=== PATIENT | male | born 1945 | race Caucasian/White ===

== ENCOUNTER 2016-10-06 16:31 | Inpatient (IN) | payer OTHER, MEDICARE ==
--- NOTE | 2016-10-06 16:56 | ER Document Report ---
ED General - General Stated Complaint: POSSIBLE HEART RATE PROBLEM Time seen by provider: 16:55 Mode of Arrival: Medic Information source: Patient, Transfer Record Notes: This is a 71-year-old man with a history of hypertension, dyslipidemia, smoking , PVCs and sinus bradycardia. The patient was transferred to the emergency room by ambulance from the [facility] because of variation's and heart rate. Patient denies any chest pain. Patient denies weight recent weight gain (he is now 307 pounds, previously he was 275). He does report dyspnea on exertion and lower extremity swelling worse over the past 2 weeks. Patient states he went to get his weight checked at the [facility] and they noticed that is heart rate was irregular and slow at times and they called an ambulance. The patient's son is in the emergency room and states that the patient has been under a lot of stress lately with the loss of his mother yesterday. Current medicines: Verapamil dose not known Hydrochlorothiazide 12.5 mg daily Allergies: Codeine TRAVEL OUTSIDE OF THE [place] IN LAST 30 DAYS: No - HPI Onset: Last week Onset/Duration: Gradual Quality of pain: No pain Severity: None Pain Level: Denies Associated symptoms: Shortness of breath. denies: Chills, Nonproductive cough, Productive cough, Fever Exacerbated by: Walking Relieved by: Denies Similar symptoms previously: Yes Recently seen / treated by doctor: Yes - Related Data Allergies/Adverse Reactions: codeine [Codeine] Allergy (Verified 10/06/16 17:13) Past Medical History - General Information source: Patient - Social History Smoking Status: Current Every Day Smoker Cigarette use (# per day): Yes - three quarters of a pack smoking Chew tobacco use (# tins/day): No Smoking Education Provided: No Frequency of alcohol use: None Drug Abuse: None Lives with: Family Family History: Reviewed & Not Pertinent, CAD, CVA Patient has suicidal ideation: No Patient has homicidal ideation: No - Past Medical History Cardiac Medical History: Reports: Hx Hypertension, Other - Bradycardia, PVCs Pulmonary Medical History: Reports: None EENT Medical History: Reports: None Neurological Medical History: Reports: None Endocrine Medical History: Reports: None Renal/ Medical History: Reports: None Malignancy Medical History: Reports None GI Medical History: Reports: None Musculoskeltal Medical History: Reports Hx Arthritis - back pain Psychiatric Medical History: Reports: None Traumatic Medical History: Reports: None Past Surgical History: Reports: Hx Appendectomy, Hx Herniorrhaphy, Hx Orthopedic Surgery - right shoulder surgery, Hx Tonsillectomy - Immunizations Hx Diphtheria, Pertussis, Tetanus Vaccination: - Unknown Hx Pneumococcal Vaccination: 08/15/14 Review of Systems - Review of Systems Constitutional: denies: Chills, Fever EENT: No symptoms reported Cardiovascular: See HPI Respiratory: See HPI Gastrointestinal: No symptoms reported Genitourinary: No symptoms reported Male Genitourinary: No symptoms reported Musculoskeletal: No symptoms reported Skin: No symptoms reported Hematologic/Lymphatic: No symptoms reported Neurological/Psychological: No symptoms reported Physical Exam - Vital signs Vitals: Pulse Ox 96 10/06/16 16:55 Notes: Physical exam: GENERAL: 71-year-old man, alert and oriented 3, appears short of breath. HEAD: Atraumatic, normocephalic. EYES: Pupils equal round and reactive to light, extraocular movements intact, sclera anicteric, conjunctiva are normal. ENT: TMs normal, nares patent, oropharynx clear without exudates. Moist mucous membranes. NECK: Normal range of motion, supple without lymphadenopathy or JVD. LUNGS: Bilateral crackles at the bases. HEART: Regular rate and rhythm without murmurs, rubs or gallops. Note: Patient has a heart rate monitor on from his jailer chief in [place]. ABDOMEN: Soft, normoactive bowel sounds. No tenderness to palpation. No guarding, no rebound. No masses appreciated. EXTREMITIES: Normal range of motion, 3+ pitting edema to the lower extremities. NEUROLOGICAL: Cranial nerves II through XII grossly intact. Normal speech, normal gait. PSYCH: Normal mood, normal affect. SKIN: Warm, Dry, normal turgor, no rashes or lesions noted. Course - Re-evaluation Re-evalutation: 10/06/16 18:27 In summary: This is a 71-year-old man presenting to the emergency room with progressively worsening dyspnea on exertion, weight gain and lower extremity swelling. At the [facility] today, the patient is known to be bradycardic and he was sent by EMS to the ER for evaluation. Patient has had heart rates in the 50s with frequent PVCs. He has had PVCs in the past. However, he states that his dyspnea on exertion and lower extremity swelling is significantly worsened in the past few days. First set of cardiac enzymes are normal. We will continue cardiac monitoring. We will continue to follow his cardiac enzymes. We will check CTA of the chest. - Vital Signs Vital signs: Temp Pulse Resp BP Pulse Ox 98.0 F 27 H 123/66 96 10/06/16 17:17 10/06/16 17:17 10/06/16 17:17 10/06/16 16:55 - Laboratory Result Diagrams: 10/06/16 17:23 10/06/16 17:23 Laboratory results interpreted by me: 10/06/16 10/06/16 17:23 17:23 WBC 11.7 H Hgb 13.4 L RDW 15.4 H Lymphocytes % 11.1 L Absolute Neutrophils 8.9 H Carbon Dioxide 33 H Creatine Kinase 45 L Albumin 3.3 L - Diagnostic Test Radiology reviewed: Image reviewed, Reports reviewed - No obvious infiltrates - EKG Interpretation by Me Rate: Bradycardia - EKG shows sinus bradycardia with a ventricular rate of 59, PVCs with some bigeminy Discharge - Discharge Clinical Impression: dyspnea, bradycardia, PVCs Condition: Stable Disposition: ADMITTED OBSERVATION Admitting Provider: Hospitalist - Dr. Grimaldo Unit Admitted: Telemetry
[2016-10-06] MEDS ORDERED: FUROSEMIDE INJ/PF 40 MG/4 ML SDV IV ONE (17:29)
[2016-10-06 17:36] LABS: ABSOLUTE BASOPHILS # (AUTO) 0.1 10^3/uL (0.0-0.2); ABSOLUTE EOSINOPHILS # (AUTO) 0.1 10^3/uL (0.0-0.6); ABSOLUTE LYMPHOCYTES (AUTO) 1.3 10^3/uL (0.5-4.7); ABSOLUTE MONOCYTES (AUTO) 1.3 10^3/uL (0.1-1.4); ABSOLUTE NEUT (AUTO) 8.9 10^3/uL (1.7-8.2); BASOPHILS % (AUTO) 0.9 % (0-2); EOSINOPHILS % (AUTO) 0.7 % (0-6); HEMATOCRIT 41.8 % (37.9-51.0); HEMOGLOBIN 13.4 g/dL (13.5-17.0); HGB HCT DIFFERENCE -1.6; LYMPHOCYTES % (AUTO) 11.1 % (13-45); MEAN CORPUSCULAR HEMOGLOBIN 28.6 pg (27.0-33.4); MEAN CORPUSCULAR VOLUME 89 fl (80-97); MONOCYTES % (AUTO) 11.4 % (3-13); RED BLOOD COUNT 4.68 10^6/uL (4.35-5.55); RED CELL DISTRIBUTION WIDTH 15.4 % (11.5-14.0); SEGMENTED NEUTROPHILS % (AUTO) 75.9 % (42-78); WHITE BLOOD COUNT 11.7 10^3/uL (4.0-10.5)
[2016-10-06 17:54] LABS: ALANINE AMINOTRANSFERASE 25 U/L (21-72); ALBUMIN 3.3 g/dL (3.5-5.0); ALKALINE PHOSPHATASE 85 U/L (38-126); ANION GAP 10 (5-19); ASPARTATE AMINO TRANSFERASE 18 U/L (17-59); BILIRUBIN,TOTAL 0.8 mg/dL (0.2-1.3); BLOOD UREA NITROGEN 16 mg/dL (7-20); CALCIUM 9.2 mg/dL (8.4-10.2); CARBON DIOXIDE 33 mmol/L (22-30); CHLORIDE 101 mmol/L (98-107); CREATINE KINASE 45 U/L (55-170); CREATININE RESULT 0.74 mg/dL (0.52-1.25); GLUCOSE 88 mg/dL (75-110); POTASSIUM 4.2 mmol/L (3.6-5.0); SODIUM 144.3 mmol/L (137-145); TOTAL PROTEIN 6.6 g/dL (6.3-8.2)
[2016-10-06 18:06] LABS: CREATINE KINASE MB 0.67 ng/mL (<4.55); TROPONIN I < 0.012 ng/mL
[2016-10-06] MEDS ORDERED: ACETAMINOPHEN 325 MG TABLET PO PRN (18:49)
[2016-10-06] MEDS ORDERED: ONDANSETRON HCL INJ/PF 4 MG/2 ML SDV IV PRN (18:49)
--- NOTE | 2016-10-06 19:11 | PDOC H&P ---
History of Present Illness Admission Date/PCP: 10/06/2016 Patient complains of: Shortness of breath on exertion History of Present Illness: STONE GROVE JR is a 71 year old male, with hypertension, COPD, chronic back pain, premature ventricular contractions and ventricular arrhythmias, has been on an event recorder presents to the hospital with dyspnea on exertion for a few weeks with increasing lower extremity edema and weight gain of about 10 pounds. Denies any chest pain at all. No paroxysmal nocturnal dyspnea nor orthopnea. No sweating. No chills or fever. There is pressure in the lower extremities but no definite pain. There is likewise no redness. The patient went to the emergency room for evaluation and was referred for observation. Patient denies any wheezing at all. No shortness of breath at rest. Patient has cough intermittently but not worse. Past Medical History Cardiac Medical History: Reports: Hyperlipidema, Hypertension, Other - Bradycardia, PVCs Pulmonary Medical History: Reports: Chronic Obstructive Pulmonary Disease (COPD) EENT Medical History: Reports: None Neurological Medical History: Reports: None Endocrine Medical History: Reports: None Renal/ Medical History: Reports: None Malignancy Medical History: Reports: None GI Medical History: Reports: None Musculoskeltal Medical History: Reports: Arthritis - back pain, Other - Back pain Psychiatric Medical History: Reports: None Traumatic Medical History: Reports: None Past Surgical History Past Surgical History: Reports: Appendectomy, Herniorrhaphy, Orthopedic Surgery - right shoulder surgery, Tonsillectomy Social History Information Source: Patient Lives with: Family Smoking Status: Current Every Day Smoker Frequency of Alcohol Use: None Hx Recreational Drug Use: No Drugs: None Hx Prescription Drug Abuse: No Family History Family History: CAD, CVA Parental Family History Reviewed: Yes Children Family History Reviewed: Yes Sibling(s) Family History Reviewed.: Yes Medication/Allergy Home Medications: Verapamil HCl [Calan Sr 120 mg Tablet.sa] 120 mg PO BID 11/13/15 Allergies/Adverse Reactions: codeine [Codeine] Allergy (Verified 10/06/16 17:13) Review of Systems Constitutional: PRESENT: weakness - Generalized, weight gain. ABSENT: chills, fever(s), headache(s), weight loss Eyes: ABSENT: visual disturbances Ears: ABSENT: hearing changes Nose, Mouth, and Throat: ABSENT: mouth pain, sore throat Cardiovascular: PRESENT: dyspnea on exertion, edema. ABSENT: chest pain, orthropnea, palpitations Respiratory: PRESENT: cough. ABSENT: hemoptysis Gastrointestinal: ABSENT: abdominal pain, constipation, diarrhea, hematemesis, hematochezia, nausea, vomiting Genitourinary: ABSENT: dysuria, hematuria Musculoskeletal: ABSENT: joint swelling Integumentary: ABSENT: rash, wounds Neurological: ABSENT: abnormal gait, abnormal speech, confusion, dizziness, focal weakness, syncope Psychiatric: ABSENT: anxiety, depression, homidical ideation, suicidal ideation Endocrine: ABSENT: cold intolerance, heat intolerance, polydipsia, polyuria Hematologic/Lymphatic: ABSENT: easy bleeding, easy bruising Physical Exam Vital Signs: Temp Pulse Resp BP Pulse Ox 98.0 F 23 H 123/94 H 96 10/06/16 17:17 10/06/16 18:01 10/06/16 18:01 10/06/16 18:01 Intake & Output 10/05/16 10/06/16 10/07/16 06:59 06:59 06:59 Weight 139.253 kg General appearance: PRESENT: no acute distress, morbidly obese Head exam: PRESENT: atraumatic, normocephalic Eye exam: PRESENT: conjunctiva pink, EOMI, PERRLA. ABSENT: scleral icterus Ear exam: PRESENT: normal external ear exam Mouth exam: PRESENT: moist, neck supple, tongue midline Neck exam: ABSENT: carotid bruit, JVD, lymphadenopathy, thyromegaly Respiratory exam: PRESENT: clear to auscultation gregorio. ABSENT: rales, rhonchi, wheezes Cardiovascular exam: PRESENT: RRR, systolic murmur - L sternal border. ABSENT: diastolic murmur, rubs Pulses: PRESENT: normal dorsalis pedis pul Vascular exam: PRESENT: normal capillary refill GI/Abdominal exam: PRESENT: normal bowel sounds, soft. ABSENT: distended - Obese, guarding, mass, organolmegaly, rebound, tenderness Rectal exam: PRESENT: deferred Extremities exam: PRESENT: full ROM, pedal edema, +2 edema, other - Mild redness in the left. ABSENT: calf tenderness, clubbing Neurological exam: PRESENT: alert, awake, oriented to person, oriented to place , oriented to time, oriented to situation Psychiatric exam: PRESENT: appropriate affect, normal mood. ABSENT: homicidal ideation, suicidal ideation Skin exam: PRESENT: dry, intact, warm. ABSENT: cyanosis, rash Results Laboratory Results: 10/06/16 17:23 10/06/16 17:23 10/06/16 10/06/16 17:23 17:23 WBC 11.7 H RBC 4.68 Hgb 13.4 L Hct 41.8 MCV 89 MCH 28.6 MCHC 32.0 RDW 15.4 H Plt Count 244 Seg Neutrophils % 75.9 Lymphocytes % 11.1 L Monocytes % 11.4 Eosinophils % 0.7 Basophils % 0.9 Absolute Neutrophils 8.9 H Absolute Lymphocytes 1.3 Absolute Monocytes 1.3 Absolute Eosinophils 0.1 Absolute Basophils 0.1 Sodium 144.3 Potassium 4.2 Chloride 101 Carbon Dioxide 33 H Anion Gap 10 BUN 16 Creatinine 0.74 Est GFR ( Amer) > 60 Est GFR (Non-Af Amer) > 60 Glucose 88 Calcium 9.2 Total Bilirubin 0.8 AST 18 ALT 25 Alkaline Phosphatase 85 Total Protein 6.6 Albumin 3.3 L 10/06/16 10/06/16 10/06/16 17:23 17:23 17:23 Creatine Kinase 45 L CK-MB (CK-2) 0.67 Troponin I < 0.012 NT-Pro-B Natriuret Pep Cancelled 189 Impressions: Chest X-Ray 10/06/16 16:56 IMPRESSION: NO ACUTE RADIOGRAPHIC FINDING IN THE CHEST. Assessment & Plan - Diagnosis (1) Shortness of breath on exertion Is this a current diagnosis for this admission?: Yes (2) Lower extremity edema Qualifiers: Laterality: bilateral Qualified Code(s): R60.0 - Localized edema Is this a current diagnosis for this admission?: Yes (3) Weight gain Is this a current diagnosis for this admission?: Yes (4) Ventricular arrhythmia Is this a current diagnosis for this admission?: Yes (5) Hypertension Qualifiers: Hypertension type: essential hypertension Qualified Code(s): I10 - Essential (primary) hypertension Is this a current diagnosis for this admission?: Yes (6) Chronic back pain Qualifiers: Back pain location: back pain in unspecified location Back pain laterality: unspecified Qualified Code(s): M54.9 - Dorsalgia, unspecified ; G89.29 - Other chronic pain Is this a current diagnosis for this admission?: Yes (7) COPD (chronic obstructive pulmonary disease) Qualifiers: COPD type: unspecified COPD Qualified Code(s): J44.9 - Chronic obstructive pulmonary disease, unspecified Is this a current diagnosis for this admission?: Yes (8) Obesity Qualifiers: Obesity type: unspecified obesity type Obesity severity: unspecified obesity severity Qualified Code(s): E66.9 - Obesity, unspecified Is this a current diagnosis for this admission?: Yes - Time Time Spent: 30 to 50 Minutes - Plan Summary Plan Summary: Patient will be admitted to observation. We will obtain cardiac enzymes 3. I would put the patient on aspirin. In the meantime we will continue the patient' s verapamil. CT scan of the chest will be done to rule out pulmonary embolism. We will also do lower extremity venous Doppler. I will check a thyroid panel. We will consult cardiology for further evaluation. We will check serum magnesium. Further testing depends on the initial evaluation as outlined above.
--- NOTE | 2016-10-06 19:29 | PDOC CONSULTATION ---
Consultation Consult Date: 10/06/16 Attending physician:: DEAN MEDEL Consult reason:: Pedal edema and increased VPCs History of Present Illness Admission Date/PCP: 10/06/16 18:56 History of Present Illness: STONE GROVE JR is a 71 year old male, with hypertension, COPD, chronic back pain, premature ventricular contractions and ventricular arrhythmias, has been on an event recorder presents to the hospital with dyspnea on exertion for a few weeks with increasing lower extremity edema and weight gain of about 10 pounds. Denies any chest pain at all. No paroxysmal nocturnal dyspnea nor orthopnea. No sweating. No chills or fever. There is pressure in the lower extremities but no definite pain. There is likewise no redness. The patient went to the emergency room for evaluation and was referred for observation. Patient denies any wheezing at all. No shortness of breath at rest. Patient has cough intermittently but not worse. I was asked to evaluate patient because of history of frequent PVCs, pedal edema and possible underlying CHF. Patient claims that he never had a sleep study. Past Medical History Cardiac Medical History: Reports: Atrial Fibrillation, Hyperlipidema, Hypertension, Other - Bradycardia, PVCs Pulmonary Medical History: Reports: None, Chronic Obstructive Pulmonary Disease (COPD) EENT Medical History: Reports: None Neurological Medical History: Reports: None Endocrine Medical History: Reports: None Renal/ Medical History: Reports: None Malignancy Medical History: Reports: None GI Medical History: Reports: None Musculoskeltal Medical History: Reports: Arthritis - back pain, Other - Back pain Psychiatric Medical History: Reports: None Traumatic Medical History: Reports: None Past Surgical History Past Surgical History: Reports: Appendectomy, Herniorrhaphy, Orthopedic Surgery - right shoulder surgery, Tonsillectomy Social History Information Source: Patient Lives with: Family Smoking Status: Current Every Day Smoker Frequency of Alcohol Use: None Hx Recreational Drug Use: No Drugs: None Hx Prescription Drug Abuse: No - Advance Directive Resuscitation Status: Full Code Surrogate healthcare decision maker:: Surrogate decision maker is patient's son. Family History Family History: None, CAD, CVA Parental Family History Reviewed: Yes Children Family History Reviewed: Yes Sibling(s) Family History Reviewed.: Yes Medication/Allergy Home Medications: Aspirin [Aspirin 81 mg Chewable Tablet] 81 mg PO DAILY 10/06/16 Hydrochlorothiazide [Hydrodiuril 25 mg Tablet] 12.5 mg PO BID 10/06/16 Multivitamin W/Iron, Minerals [[facility]] 1 each PO DAILY Tamsulosin HCl [Flomax 0.4 mg Cap.sr] 0.4 mg PO DAILY 10/06/16 Verapamil HCl [Verapamil ER] 120 mg PO Q12 10/06/16 Allergies/Adverse Reactions: codeine [Codeine] Allergy (Verified 10/06/16 17:13) Review of Systems Review of Systems: Please see history of present illness and past medical history as wall. Constitutional: No fever or chills reported. Head : No recent chronic headaches, recent head injury. Eyes: No recent eye pain, diplopia, redness, discharge, acute visual changes. Ears: No recent chronic ear pain, acute hearing loss, ear discharge. Oral cavity: No recent ulcerations, bleeding, oral cavity discomfort. Neck: No recent acute neck pain reported. Hematologic: No recent easy bruising or bleeding or hematologic malignancy reported. Lymphatic: No recent lymphatic malignancy, chronic lymphadenopathy reported yet Cardiovascular system review: See history of present illness. Respiratory system review: No recent chronic cough, hemoptysis, blood clots in the lungs reported. Mild Shortness of breath on exertion Gastrointestinal system review: Negative for any recent acute or chronic abdominal pain, hematemesis, melena, recent change in bowel habits. Genitourinary system review: No recent acute or chronic hematuria, flank pain, UTI etc. reported. Skin system review: Negative for any recent abnormal bruising, no rash, no pruritus reported. Neurologic: No prior history of strokes, mini strokes, seizure disorder. Psychologic: No history of major psychosis or depression reported. Musculoskeletal: Minor aches and pains reported. No acute joint swelling reported. Endocrine: No recent polyuria, polydipsia, recent heat or cold intolerance. Physical Exam Vital Signs: Temp Pulse Resp BP Pulse Ox 98.0 F 23 H 123/94 H 96 10/06/16 17:17 10/06/16 18:01 10/06/16 18:01 10/06/16 18:01 Exam: GENERAL: well-nourished and in no acute distress. Alert and oriented x3 HEAD: Atraumatic, normocephalic. EYES: Pupils equal round and reactive to light, extraocular movements intact, sclera anicteric, conjunctiva are normal. ENT: TMs normal, nares patent, oropharynx clear without exudates. Moist mucous membranes. No oral ulcerations or bleeding gums noted NECK: supple without lymphadenopathy. Trachea is central. No cervical or axillary lymphadenopathy noted. Carotids are 2+, JVD DIFFICULT TO ASSESS BUT FEEL IS ELEVATED LUNGS: Respiration seems nonlabored, no significant accessory muscle action noted. Breath sounds clear to auscultation bilaterally and equal noted. No wheezes rales or rhonchi noted. No significant dullness noted on percussion. CHEST: Palpation of the chest wall shows no significant chest wall tenderness. No other significant abnormalities noted. 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 ABDOMEN: Soft, no significant tenderness appreciated, normoactive bowel sounds. No guarding, no rebound. No rigidity noted . No masses appreciated. EXTREMITIES: Pedal pulses are 1-2+, no calf tenderness noted. No clubbing or cyanosis.3 + pedal edema noted NEUROLOGICAL: Focused neurological exam showed no significant neurologic deficit. Normal speech, no focal weakness appreciated. PSYCH: Normal mood, normal affect. Judgment and insight within normal limits. SKIN: No significant ecchymosis, rash, ulcerations or signs of pruritus noted, except for mild erythematous rash noted both chavez area. MUSCULOSKELETAL EXAM: No significant joint swelling noted. Results EKG Comments: Sinus rhythm, unifocal PVCs with one couplet, no acute ST segment changes noted Impressions: Chest X-Ray 10/06/16 16:56 IMPRESSION: NO ACUTE RADIOGRAPHIC FINDING IN THE CHEST. Chest/Abdomen CTA 10/06/16 18:11 IMPRESSION: Scattered areas of subsegmental atelectasis are present in both lung bases. No pleural effusion. Scattered interstitial and nodular changes are present with mild paraseptal and centrilobular emphysema with upper lobe predominance. TScattered mediastinal adenopathy. here is a 6 x 8 mm noncalcified nodule in the left upper lobe new seen best on image 33, followup exam is recommended in 4 months for surveillance. NO PULMONARY EMBOLI. Hepatic and renal cysts. Left adrenal nodule, probable adenoma. Assessment & Plan - Diagnosis (1) COPD (chronic obstructive pulmonary disease) Qualifiers: COPD type: unspecified COPD Qualified Code(s): J44.9 - Chronic obstructive pulmonary disease, unspecified Is this a current diagnosis for this admission?: Yes (2) Lower extremity edema Qualifiers: Laterality: bilateral Qualified Code(s): R60.0 - Localized edema Is this a current diagnosis for this admission?: Yes (3) Shortness of breath on exertion Is this a current diagnosis for this admission?: Yes (4) Ventricular arrhythmia Is this a current diagnosis for this admission?: Yes (5) Weight gain Is this a current diagnosis for this admission?: Yes - Notes Notes: Recommend continuing home medication. Start Lasix and spironolactone. Patient will benefit from a sleep study. Would also recommend a arterial blood gas. A arterial blood gas was ordered. Results pending at the time of dictation. Suspect that patient may have either hypoxemia or hypercarbia. Have also ordered a 2-D echocardiogram to evaluate ventricular arrhythmias. Patient leg edema probably related to venous insufficiency but could well be related to chronic right heart failure. Occasionally BNP level could be falsely low in patient with obesity and right heart failure. Further management plans will follow after review of 2-D echocardiogram and arterial blood gas report. - Time Time Spent: 30 to 50 Minutes
[2016-10-06] MEDS ORDERED: ENOXAPARIN SODIUM INJ 40 MG/0.4 ML DISP.SYRIN SUBCUT ONE (19:45)
[2016-10-07 00:28] LABS: TROPONIN I < 0.012 ng/mL
[2016-10-07] MEDS ORDERED: VERAPAMIL HCL 120 MG TABLET ONE (01:06)
[2016-10-07] MEDS ORDERED: VERAPAMIL HCL 120 MG TABLET.SA PO ONE (01:20)
[2016-10-07] MEDS: VERAPAMIL HCL 120 MG TABLET.SA PO SCH ×2 (01:24→09:40)
[2016-10-07] MEDS: LANSOPRAZOLE 30 MG TAB.RAP.DR PO SCH (05:28)
[2016-10-07 05:55] LABS: HEMATOCRIT 39.3 % (37.9-51.0); HEMOGLOBIN 12.6 g/dL (13.5-17.0); HGB HCT DIFFERENCE -1.5; MEAN CORPUSCULAR HEMOGLOBIN 28.7 pg (27.0-33.4); MEAN CORPUSCULAR HGB CONC 32.1 g/dL (32.0-36.0); MEAN CORPUSCULAR VOLUME 89 fl (80-97); RED CELL DISTRIBUTION WIDTH 15.1 % (11.5-14.0); WHITE BLOOD COUNT 12.2 10^3/uL (4.0-10.5)
[2016-10-07 06:14] LABS: ANION GAP 8 (5-19); BLOOD UREA NITROGEN 18 mg/dL (7-20); CALCIUM 9.3 mg/dL (8.4-10.2); CARBON DIOXIDE 36 mmol/L (22-30); CHLORIDE 101 mmol/L (98-107); CREATINE KINASE 47 U/L (55-170); CREATININE RESULT 0.86 mg/dL (0.52-1.25); GLUCOSE 115 mg/dL (75-110); POTASSIUM 4.2 mmol/L (3.6-5.0); SODIUM 144.7 mmol/L (137-145)
[2016-10-07 06:21] LABS: TROPONIN I < 0.012 ng/mL
[2016-10-07] MEDS: ENOXAPARIN SODIUM INJ 40 MG/0.4 ML DISP.SYRIN SUBCUT SCH (07:55)
--- NOTE | 2016-10-07 08:16 | EKG REPORT ---
SEVERITY:- ABNORMAL ECG - SINUS RHYTHM VENTRICULAR BIGEMINY FIRST DEGREE AV BLOCK RIGHT AXIS DEVIATION : Confirmed by: Yelitza Flores MD 07-Oct-2016 08:15:34
[2016-10-07 08:29] LABS: ARTERIAL BLOOD BASE EXCESS 9.5 mmol/L; ARTERIAL BLOOD O2 SATURATION 89.9 % (94-98)
[2016-10-07] MEDS: DOCUSATE SODIUM 100 MG CAPSULE PO SCH ×2 (09:39→17:02)
[2016-10-07] MEDS: SPIRONOLACTONE 25 MG TABLET PO SCH (09:40)
[2016-10-07] MEDS: ASPIRIN 81 MG TABLET, CHEWABLE PO SCH (09:40)
[2016-10-07] MEDS ORDERED: FUROSEMIDE 40 MG TABLET PO ONE (11:00)
[2016-10-07 12:31] LABS: CREATINE KINASE MB 0.79 ng/mL (<4.55)
[2016-10-07 12:33] LABS: TROPONIN I < 0.012 ng/mL
--- NOTE | 2016-10-07 16:21 | PDOC PROGRESS REPORT ---
Subjective Progress Note for:: 10/07/16 Subjective:: Patient seems to be doing better with gradual improvement. Pt is denying any chest arm or neck discomfort. Patient denying any PND, orthopnea. Patient denied any sustained palpitations, dizziness, syncope, near syncope. Patient denying any fever chills. Patient denying any other significant discomfort. Patient is maintaining sinus rhythm, however with frequent VPCs and intermittent bradycardia. Patient remains with significant pedal edema. Review of systems: Rest review of systems negative. Medications: Medications have been reviewed. Physical Exam Vital Signs: Temp Pulse Resp BP Pulse Ox 97.6 F 41 L 20 122/76 94 10/07/16 15:51 10/07/16 15:51 10/07/16 15:51 10/07/16 15:51 10/07/16 15:51 Intake & Output 10/06/16 10/07/16 10/08/16 06:59 06:59 06:59 Intake Total 420 Output Total 1125 Balance -705 Exam: GENERAL: well-nourished and in no acute distress. Alert and oriented x3 HEAD: Atraumatic, normocephalic. EYES: Pupils equal round and reactive to light, extraocular movements intact, sclera anicteric, conjunctiva are normal. ENT: TMs normal, nares patent, oropharynx clear without exudates. Moist mucous membranes. No oral ulcerations or bleeding gums noted NECK: supple without lymphadenopathy. Trachea is central. No cervical or axillary lymphadenopathy noted. Carotids are 2+, JVD DIFFICULT TO ASSESS LUNGS: Respiration seems nonlabored, no significant accessory muscle action noted. Breath sounds clear to auscultation bilaterally and equal noted. No wheezes rales or rhonchi noted. No significant dullness noted on percussion. CHEST: Palpation of the chest wall shows no significant chest wall tenderness. No other significant abnormalities noted. 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 ABDOMEN: Soft, no significant tenderness appreciated, normoactive bowel sounds. No guarding, no rebound. No rigidity noted . No masses appreciated. EXTREMITIES: Pedal pulses are 1-2+, no calf tenderness noted. No clubbing or cyanosis.3 + pedal edema noted NEUROLOGICAL: Focused neurological exam showed no significant neurologic deficit. Normal speech, no focal weakness appreciated. PSYCH: Normal mood, normal affect. Judgment and insight within normal limits. SKIN: No significant ecchymosis, ulcerations or signs of pruritus noted. Mild erythematous rash noted both chavez area both legs MUSCULOSKELETAL EXAM: No significant joint swelling noted. Results Laboratory Results: 10/07/16 05:26 10/07/16 05:26 10/07/16 10/07/16 10/07/16 05:26 05:26 05:26 WBC 12.2 H RBC 4.40 Hgb 12.6 L Hct 39.3 MCV 89 MCH 28.7 MCHC 32.1 RDW 15.1 H Plt Count 223 Carbonic Acid HCO3/H2CO3 Ratio ABG pH ABG pCO2 ABG pO2 ABG HCO3 ABG O2 Saturation ABG Base Excess FiO2 Sodium 144.7 Potassium 4.2 Chloride 101 Carbon Dioxide 36 H Anion Gap 8 BUN 18 Creatinine 0.86 Est GFR ( Amer) > 60 Est GFR (Non-Af Amer) > 60 Glucose 115 H Calcium 9.3 Phosphorus 5.0 H TSH 3.15 10/07/16 08:12 WBC RBC Hgb Hct MCV MCH MCHC RDW Plt Count Carbonic Acid 2.16 H HCO3/H2CO3 Ratio 17:1 ABG pH 7.35 ABG pCO2 71.6 H* ABG pO2 62.8 L ABG HCO3 38.2 H ABG O2 Saturation 89.9 L ABG Base Excess 9.5 FiO2 26% Sodium Potassium Chloride Carbon Dioxide Anion Gap BUN Creatinine Est GFR ( Amer) Est GFR (Non-Af Amer) Glucose Calcium Phosphorus TSH 10/06/16 10/06/16 10/07/16 23:39 23:39 05:26 Creatine Kinase 44 L CK-MB (CK-2) 0.70 0.80 Troponin I < 0.012 < 0.012 10/07/16 10/07/16 10/07/16 05:26 11:51 11:51 Creatine Kinase 47 L 48 L CK-MB (CK-2) 0.79 Troponin I < 0.012 Impressions: Chest X-Ray 10/06/16 16:56 IMPRESSION: NO ACUTE RADIOGRAPHIC FINDING IN THE CHEST. Chest/Abdomen CTA 10/06/16 18:11 IMPRESSION: Scattered areas of subsegmental atelectasis are present in both lung bases. No pleural effusion. Scattered interstitial and nodular changes are present with mild paraseptal and centrilobular emphysema with upper lobe predominance. TScattered mediastinal adenopathy. here is a 6 x 8 mm noncalcified nodule in the left upper lobe new seen best on image 33, followup exam is recommended in 4 months for surveillance. NO PULMONARY EMBOLI. Hepatic and renal cysts. Left adrenal nodule, probable adenoma. Assessment & Plan - Diagnosis (1) COPD (chronic obstructive pulmonary disease) Qualifiers: COPD type: unspecified COPD Qualified Code(s): J44.9 - Chronic obstructive pulmonary disease, unspecified Is this a current diagnosis for this admission?: Yes (2) Lower extremity edema Qualifiers: Laterality: bilateral Qualified Code(s): R60.0 - Localized edema Is this a current diagnosis for this admission?: Yes (3) Shortness of breath on exertion Is this a current diagnosis for this admission?: Yes (4) Ventricular arrhythmia Is this a current diagnosis for this admission?: Yes (5) Weight gain Is this a current diagnosis for this admission?: Yes (6) Respiratory failure Qualifiers: Chronicity: acute on chronic Respiratory failure complication: hypoxia and hypercapnia Qualified Code(s): J96.21 - Acute and chronic respiratory failure with hypoxia; J96.22 - Acute and chronic respiratory failure with hypercapnia Is this a current diagnosis for this admission?: Yes - Notes Notes: Respiratory failure: Most likely related to obesity hypoventilation syndrome and also underlying COPD. Have consult to Dr. Silva. Patient will benefit from positive pressure ventilation. Patient will also benefit from weight loss. Ventricular arrhythmia: Could be bradycardia related. At this point will reduce verapamil 120 milligrams by mouth daily. 2-D echo results were reviewed. Preliminary results shows normal LVEF. Leg edema: Possibly right heart failure related but could well be due to venous insufficiency, dependency etc. Shortness of breath: Is multifactorial, related to obesity, deconditioning, COPD , right heart failure. - Time Time with patient: Greater than 35 minutes - CODE STATUS was discussed, patient remains full code. Surrogate decision-maker unchanged. Multiple medical problems were addressed.More than 50% of the time spent coordinating care, discussing management plans with involved caregivers. Management plans discussed with involved personnels. Medical decision making was of moderate complexity.
--- NOTE | 2016-10-07 16:27 | XCELERA REPORT ---
[address] [address] Transthoracic Echocardiogram Report Name: STONE GROVE JR Age: 71 yrs Gender: Male : 1945 Patient Status: Inpatient Patient Location: N\S\414\S\A Study Date: 10/07/2016 03:02 PM Height: 70 in Weight: 307 lb BSA: 2.5 m2 Procedure: A complete two-dimensional transthoracic echocardiogram was performed (2D, M-mode, spectral and color flow Doppler). The study was technically difficult with many images being suboptimal in quality. Reason For Study: pedal edema, dyspnea Ordering Physician: MAL ARCINIEGA Performed By: Eddie Hodgson Interpretation Summary The study was technically difficult with many images being suboptimal in quality. The left ventricular ejection fraction is estimated to be normal. Consider additional methods to assess LVEF such as MUGA scan, CTA heart, cardiac MRI, SHELLEY, etc. if clinically indicated. Doppler measurements suggest pseudonormalized left ventricular relaxation, which is associated with grade II/IV or mild to moderate diastolic dysfunction There is mild concentric left ventricular hypertrophy. The left ventricle is grossly normal size. Not all wall segments were well visualized. Regional wall motion abnormalities cannot be excluded due to limited visualization. The right ventricle is mild to moderately dilated. The right ventricle appears to be hypertrophied The right atrium is mildly dilated. The left atrium is mildly dilated. There is a mild amount of mitral regurgitation No significant mitral valve stenosis. There is mild to moderate aortic stenosis There is a peak gradient of 35 mm of Hg. No aortic regurgitation is present. There is a mild amount of tricuspid regurgitation There is moderate pulmonary hypertension by echo Right ventricular systolic pressure is estimated to be elevated at 50- 60mmHg. The inferior vena cava appeared dilated and decreased < 50% with respiration (RAP 15-20 mmHg) There is no pericardial effusion. MMode/2D Measurements \T\ Calculations RVDd: 4.2 cm LVIDd: 4.9 cmFS: 33.2 % Ao root diam: 3.5 cm IVSd: 1.0 cm LVIDs: 3.2 cmEDV(Teich): 110.6 ml LVPWd: 1.1 cmESV(Teich): 42.4 ml Ao root area: 9.7 cm2 EF(Teich): 61.7 % LA dimension: 3.8 cm LVOT diam: 2.9 cm LVOT area: 6.4 cm2 Doppler Measurements \T\ Calculations MV E max olesya: MV P1/2t max olesya: Ao V2 max: LV V1 max P.4 cm/sec 126.4 cm/sec 282.1 cm/sec 5.7 mmHg MV A max olesya: MV P1/2t: 79.3 msec Ao max PG: LV V1 mean P.4 cm/sec MVA(P1/2t): 2.8 cm2 31.9 mmHg 2.4 mmHg MV E/A: 1.4 MV dec slope: Ao V2 mean: LV V1 max: 466.7 cm/sec2 180.9 cm/sec 118.9 cm/sec MV dec time: 0.27 secAo mean PG: LV V1 mean: 15.0 mmHg 70.0 cm/sec Ao V2 VTI: LV V1 VTI: 68.1 cm 25.9 cm NATASHA(I,D): 2.4 cm2 NATASHA(V,D): 2.7 cm2 SV(LVOT): 166.3 ml PA V2 max: TR max olesya: RAP systole: 80.5 cm/sec 317.6 cm/sec 10.0 mmHg PA max P.6 mmHg TR max P.4 mmHg RVSP(TR): 50.4 mmHg Left Ventricle The left ventricle is grossly normal size. There is mild concentric left ventricular hypertrophy. The left ventricular ejection fraction is normal. Consider additional methods to assess LVEF such as MUGA scan, CTA heart, cardiac MRI, SHELLEY, etc. if clinically indicated. Doppler measurements suggest pseudonormalized left ventricular relaxation, which is associated with grade II/IV or mild to moderate diastolic dysfunction. Not all wall segments were well visualized. Regional wall motion abnormalities cannot be excluded due to limited visualization. Right Ventricle The right ventricle is mild to moderately dilated. The right ventricle appears to be hypertrophied. The right ventricular systolic function is normal. Atria The right atrium is mildly dilated. The left atrium is mildly dilated. Interarterial septum not well visualized and not well dopplered. Cannot comment on ASD/PFO presence. Mitral Valve There is mild mitral leaflet calcification. No significant mitral valve stenosis. There is a mild amount of mitral regurgitation. Aortic Valve The aortic valve is moderately calcified. There is a peak gradient of 35 mm of Hg. There is mild to moderate aortic stenosis. No aortic regurgitation is present. Tricuspid Valve The tricuspid valve is not well visualized, but is grossly normal. There is no tricuspid stenosis. There is a mild amount of tricuspid regurgitation. There is moderate pulmonary hypertension by echo. Right ventricular systolic pressure is estimated to be elevated at 50-60mmHg. Pulmonic Valve The pulmonic valve is not well visualized. Great Vessels The aortic root is not well visualized. The inferior vena cava appeared dilated and decreased < 50% with respiration (RAP 15-20 mmHg). Effusions There is no pericardial effusion. : MAL ARCINIEGA > Mal Arciniega
[2016-10-07] MEDS ORDERED: CIPROFLOXACIN HCL 500 MG TABLET PO ONE (16:30)
[2016-10-07] MEDS: FUROSEMIDE 40 MG TABLET PO SCH (17:02)
--- NOTE | 2016-10-07 17:02 | XCELERA REPORT ---
[address] [address] Lower Extremity Venous Evaluation Name: STONE GROVE JR Age: 71 yrs Gender: Male : 1945 Patient Status: Inpatient Patient Location: 4N\S\[facility]\S\A Study Date: 10/06/2016 09:08 PM Procedure: Color flow and duplex imaging bilaterally of the veins of the lower extremities as well as the Common Femoral veins. Reason For Study: DVT, edema of both LE Ordering Physician: DEAN MEDEL Performed By: Willow Whitaker Right Sided Venous Evaluation Subcutaneous edema noted. Also proximal Greater Saphenous reflux. Otherwise normal vessel filling wall to wall, compression and augmentation as well as Colour flow down to the infrageniculate veins. Left Sided Venous Evaluation Subcutaneous edema noted. Also proximal Greater Saphenous and Popliteal reflux. Otherwise normal vessel filling wall to wall, compression and augmentation as well as Colour flow down to the infrageniculate veins. Critical Findings Preliminary findings were discussed with Dr Lomax. Interpretation Summary No duplex evidence of DVT or obstruction in the bilateral lower extremities. Findings of Greater Saphenous and Popliteal reflux, tissue edema as noted. : DEAN MEDEL [place]
--- NOTE | 2016-10-07 17:34 | PDOC PROGRESS REPORT ---
Subjective Progress Note for:: 10/07/16 Subjective:: The patient denies any shortness of breath at rest. No paroxysmal nocturnal dyspnea. Lower extremity edema is about the same. No chills or fever. Occasional cough. Shortness of breath mainly on exertion. ABG performed showing elevated PCO2. Pulmonary was consulted. Physical Exam Vital Signs: Temp Pulse Resp BP Pulse Ox 97.6 F 41 L 20 122/76 94 10/07/16 15:51 10/07/16 15:51 10/07/16 15:51 10/07/16 15:51 10/07/16 15:51 Intake & Output 10/06/16 10/07/16 10/08/16 06:59 06:59 06:59 Intake Total 420 750 Output Total 1125 Balance -705 750 General appearance: PRESENT: no acute distress, obese Head exam: PRESENT: normocephalic Eye exam: PRESENT: EOMI Mouth exam: PRESENT: moist, neck supple Neck exam: ABSENT: JVD Respiratory exam: PRESENT: decreased breath sounds, unlabored Cardiovascular exam: PRESENT: irregular rhythm, +S1, +S2. ABSENT: gallop GI/Abdominal exam: PRESENT: distended - Obese, normal bowel sounds, soft. ABSENT: tenderness Extremities exam: PRESENT: +2 edema Neurological exam: PRESENT: alert, awake, oriented to situation Skin exam: PRESENT: dry, warm. ABSENT: cyanosis Results Laboratory Results: 10/07/16 05:26 10/07/16 05:26 10/07/16 10/07/16 10/07/16 05:26 05:26 05:26 WBC 12.2 H RBC 4.40 Hgb 12.6 L Hct 39.3 MCV 89 MCH 28.7 MCHC 32.1 RDW 15.1 H Plt Count 223 Carbonic Acid HCO3/H2CO3 Ratio ABG pH ABG pCO2 ABG pO2 ABG HCO3 ABG O2 Saturation ABG Base Excess FiO2 Sodium 144.7 Potassium 4.2 Chloride 101 Carbon Dioxide 36 H Anion Gap 8 BUN 18 Creatinine 0.86 Est GFR ( Amer) > 60 Est GFR (Non-Af Amer) > 60 Glucose 115 H Calcium 9.3 Phosphorus 5.0 H TSH 3.15 10/07/16 08:12 WBC RBC Hgb Hct MCV MCH MCHC RDW Plt Count Carbonic Acid 2.16 H HCO3/H2CO3 Ratio 17:1 ABG pH 7.35 ABG pCO2 71.6 H* ABG pO2 62.8 L ABG HCO3 38.2 H ABG O2 Saturation 89.9 L ABG Base Excess 9.5 FiO2 26% Sodium Potassium Chloride Carbon Dioxide Anion Gap BUN Creatinine Est GFR ( Amer) Est GFR (Non-Af Amer) Glucose Calcium Phosphorus TSH 10/06/16 10/06/16 10/07/16 23:39 23:39 05:26 Creatine Kinase 44 L CK-MB (CK-2) 0.70 0.80 Troponin I < 0.012 < 0.012 10/07/16 10/07/16 10/07/16 05:26 11:51 11:51 Creatine Kinase 47 L 48 L CK-MB (CK-2) 0.79 Troponin I < 0.012 Impressions: Chest X-Ray 10/06/16 16:56 IMPRESSION: NO ACUTE RADIOGRAPHIC FINDING IN THE CHEST. Chest/Abdomen CTA 10/06/16 18:11 IMPRESSION: Scattered areas of subsegmental atelectasis are present in both lung bases. No pleural effusion. Scattered interstitial and nodular changes are present with mild paraseptal and centrilobular emphysema with upper lobe predominance. TScattered mediastinal adenopathy. here is a 6 x 8 mm noncalcified nodule in the left upper lobe new seen best on image 33, followup exam is recommended in 4 months for surveillance. NO PULMONARY EMBOLI. Hepatic and renal cysts. Left adrenal nodule, probable adenoma. Assessment & Plan - Diagnosis (1) Shortness of breath on exertion Is this a current diagnosis for this admission?: Yes (2) Lower extremity edema Qualifiers: Laterality: bilateral Qualified Code(s): R60.0 - Localized edema Is this a current diagnosis for this admission?: Yes (3) Weight gain Is this a current diagnosis for this admission?: Yes (4) Ventricular arrhythmia Is this a current diagnosis for this admission?: Yes (5) Hypertension Qualifiers: Hypertension type: essential hypertension Qualified Code(s): I10 - Essential (primary) hypertension Is this a current diagnosis for this admission?: Yes (6) Chronic back pain Qualifiers: Back pain location: back pain in unspecified location Back pain laterality: unspecified Qualified Code(s): M54.9 - Dorsalgia, unspecified ; G89.29 - Other chronic pain Is this a current diagnosis for this admission?: Yes (7) COPD (chronic obstructive pulmonary disease) Qualifiers: COPD type: unspecified COPD Qualified Code(s): J44.9 - Chronic obstructive pulmonary disease, unspecified Is this a current diagnosis for this admission?: Yes (8) Obesity Qualifiers: Obesity type: unspecified obesity type Obesity severity: unspecified obesity severity Qualified Code(s): E66.9 - Obesity, unspecified Is this a current diagnosis for this admission?: Yes - Time Time Spent with patient: 25-34 minutes - Plan Summary Plan Summary: Try wearing BiPAP at night CPAP to improve her symptoms. We will try the patient on Advair as well. Diuretics as per cardiology. We will add Zaroxolyn again for tonight. Continue to monitor. Likely will need home BiPAP at night. We will check room air oxygen on ambulation.
[2016-10-07] MEDS ORDERED: FLUTICASONE/SALMETEROL DISKUS 250-50 MCG/DOSE IH ONE (18:15)
[2016-10-07] MEDS: CIPROFLOXACIN HCL 500 MG TABLET PO SCH (21:31)
[2016-10-07] MEDS: FLUTICASONE/SALMETEROL DISKUS 250-50 MCG/DOSE IH SCH (21:35)
[2016-10-08] MEDS: LANSOPRAZOLE 30 MG TAB.RAP.DR PO SCH (05:23)
[2016-10-08] MEDS: ENOXAPARIN SODIUM INJ 40 MG/0.4 ML DISP.SYRIN SUBCUT SCH (07:42)
[2016-10-08] MEDS: ASPIRIN 81 MG TABLET, CHEWABLE PO SCH (09:07)
[2016-10-08] MEDS: CIPROFLOXACIN HCL 500 MG TABLET PO SCH ×2 (09:07→21:12)
[2016-10-08] MEDS: FLUTICASONE/SALMETEROL DISKUS 250-50 MCG/DOSE IH SCH ×2 (09:07→21:12)
[2016-10-08] MEDS: DOCUSATE SODIUM 100 MG CAPSULE PO SCH ×2 (09:07→17:10)
[2016-10-08] MEDS: SPIRONOLACTONE 25 MG TABLET PO SCH (09:08)
[2016-10-08] MEDS: FUROSEMIDE 40 MG TABLET PO SCH ×2 (09:08→17:10)
[2016-10-08] MEDS: VERAPAMIL HCL 120 MG TABLET.SA PO SCH (09:08)
--- NOTE | 2016-10-08 11:43 | PDOC DISCHARGE SUMMARY ---
General - Admit/Disc Date/PCP Admission Date/Primary Care Provider: 10/06/16 18:49 Discharge Date: 10/08/16 - Discharge Diagnosis (1) Shortness of breath on exertion Is this a current diagnosis for this admission?: Yes (2) Lower extremity edema Is this a current diagnosis for this admission?: Yes (3) Weight gain Is this a current diagnosis for this admission?: Yes (4) Ventricular arrhythmia Is this a current diagnosis for this admission?: Yes (5) Hypertension Is this a current diagnosis for this admission?: Yes (6) Chronic back pain Is this a current diagnosis for this admission?: Yes (7) COPD (chronic obstructive pulmonary disease) Is this a current diagnosis for this admission?: Yes (8) Obesity Is this a current diagnosis for this admission?: Yes - Additional Information Resuscitation Status: Full Code Discharge Diet: Cardiac - low-fat low-salt Discharge Activity: Activity As Tolerated, Balance Activity w/Rest, Slowly Increase Activity Home Medications: Aspirin [Aspirin 81 mg Chewable Tablet] 81 mg PO DAILY 10/06/16 Multivitamin W/Iron, Minerals [[facility]] 1 each PO DAILY Tamsulosin HCl [Flomax 0.4 mg Cap.sr] 0.4 mg PO DAILY 10/06/16 Ciprofloxacin HCl [Cipro 500 mg Tablet] 500 mg PO Q12 #18 tablet 10/08/16 Fluticasone/Salmeterol [Advair 250-50 Diskus 14 Dose/Diskus] 1 inh IH Q12 #1 inhaler 10/08/16 Furosemide [Lasix] 40 mg PO BID #60 tablet 10/08/16 Spironolactone [Aldactone 25 mg Tablet] 25 mg PO DAILY #30 tablet 10/08/16 Verapamil HCl [Verapamil ER] 120 mg PO DAILY #0 10/08/16 Additional Information: 1. Follow-up with cardiology or pulmonary or the [facility] for sleep study. 2. Repeat CT scan of the chest in 4-6 months as outpatient with primary care physician or the [place] to follow up pulmonary nodule. History of Present Illness Patient complains of: Shortness of breath on exertion and lower extremity edema History of Present Illness: STONE GROVE is a 71 year old male, with hypertension, COPD, chronic back pain, premature ventricular contractions and ventricular arrhythmias, has been on an event recorder presents to the hospital with dyspnea on exertion for a few weeks with increasing lower extremity edema and weight gain of about 10 pounds. Denies any chest pain at all. No paroxysmal nocturnal dyspnea nor orthopnea. No sweating. No chills or fever. There is pressure in the lower extremities but no definite pain. There is likewise no redness. The patient went to the emergency room for evaluation and was referred for observation. Patient denies any wheezing at all. No shortness of breath at rest. Patient has cough intermittently but not worse. Hospital Course Hospital Course: The patient was admitted to observation. Cardiology was consulted for the dyspnea on exertion. Patient had a CT angiogram of the chest showing left upper lobe nodule, emphysema, but no pulmonary embolism. Lower extremity venous Doppler obtained showing no deep venous anastomosis. Patient had an echocardiogram showing normal ejection fraction and moderate pulmonary hypertension. The patient was therefore educated about right-sided heart failure, pulmonary hypertension, COPD and he understood. He was advised to stop smoking. He was advised to have a sleep study done on an outpatient basis. He was started on Lasix and Aldactone. He was also tried on metered- dose inhaler with Advair. His course was noted for hypercarbia and hypoxemia on activity or exertion. He was therefore arranged for home oxygen. Patient wanted to go home and continue workup on an outpatient basis especially for the sleep study and possible need for ventilatory/CPAP at night. Patient was cleared by cardiology to be discharged. Patient also noted to have some mildly elevated WBC probably related to mild cellulitis of the lower extremity and antibiotic was started. The rest of the hospital station unremarkable. Physical Exam Vital Signs: Temp Pulse Resp BP Pulse Ox 97.6 F 55 L 18 121/64 92 10/08/16 07:54 10/08/16 07:54 10/08/16 07:54 10/08/16 07:54 10/08/16 07:54 Intake & Output 10/07/16 10/08/16 10/09/16 06:59 06:59 06:59 Intake Total 420 750 Output Total 1120 1780 Balance -705 -1130 Weight 132.9 kg General appearance: PRESENT: no acute distress, cooperative, obese Head exam: PRESENT: normocephalic Eye exam: PRESENT: EOMI Mouth exam: PRESENT: moist, neck supple Neck exam: ABSENT: JVD Respiratory exam: PRESENT: clear to auscultation gregorio. ABSENT: rhonchi, wheezes Cardiovascular exam: PRESENT: RRR. ABSENT: gallop GI/Abdominal exam: PRESENT: normal bowel sounds, soft. ABSENT: tenderness Extremities exam: PRESENT: +1 edema Neurological exam: PRESENT: alert, awake, oriented to person, oriented to place , oriented to time, oriented to situation Skin exam: PRESENT: dry, rash - Mild redness on the left leg, warm. ABSENT: cyanosis Results Laboratory Results: 10/07/16 05:26 10/07/16 05:26 10/06/16 10/06/16 10/07/16 23:39 23:39 05:26 Creatine Kinase 44 L CK-MB (CK-2) 0.70 0.80 Troponin I < 0.012 < 0.012 10/07/16 10/07/16 10/07/16 05:26 11:51 11:51 Creatine Kinase 47 L 48 L CK-MB (CK-2) 0.79 Troponin I < 0.012 Impressions: Chest X-Ray 10/06/16 16:56 IMPRESSION: NO ACUTE RADIOGRAPHIC FINDING IN THE CHEST. Chest/Abdomen CTA 10/06/16 18:11 IMPRESSION: Scattered areas of subsegmental atelectasis are present in both lung bases. No pleural effusion. Scattered interstitial and nodular changes are present with mild paraseptal and centrilobular emphysema with upper lobe predominance. TScattered mediastinal adenopathy. here is a 6 x 8 mm noncalcified nodule in the left upper lobe new seen best on image 33, followup exam is recommended in 4 months for surveillance. NO PULMONARY EMBOLI. Hepatic and renal cysts. Left adrenal nodule, probable adenoma. Qualifiers PATEINT BEING DISCHARGED WITH ANY OF THE FOLLOWING DIAGNOSIS?: Heart Failure HF Pt being discharged on ACEI for LVEF less than 40%?: No Reason(s) for not prescribing ACEI:: Not indicated - Normal ejection fraction and right-sided heart failure HF Pt being discharged on ARBS for LVEF less than 40%?: No Reason(s) for not prescribing ARBS:: Not indicated - Normal ejection fraction and right-sided heart failure HF Pt discharged on evidence-based Beta Chandrika?: No Reason(s) for not prescribing evidence-based Beta Chandrika:: Not indicated - Normal ejection fraction and right-sided heart failure Plan Discharge Plan: Follow-up with primary care physician in one week. Follow-up with pulmonary in 2 weeks. Follow-up with cardiology in 1-2 weeks. Time Spent: Less than 30 Minutes
--- NOTE | 2016-10-08 12:16 | PDOC PROGRESS REPORT ---
Subjective Progress Note for:: 10/08/16 Subjective:: The patient denies any shortness of breath at rest. No paroxysmal nocturnal dyspnea. Lower extremity edema is about the same. No chills or fever. Occasional cough. Shortness of breath mainly on exertion. Room air O2 sats saturation 87%. Physical Exam Vital Signs: Temp Pulse Resp BP Pulse Ox 97.6 F 55 L 18 121/64 92 10/08/16 07:54 10/08/16 07:54 10/08/16 07:54 10/08/16 07:54 10/08/16 07:54 Intake & Output 10/07/16 10/08/16 10/09/16 06:59 06:59 06:59 Intake Total 420 750 Output Total 1125 1880 Balance -705 -1130 Weight 132.9 kg General appearance: PRESENT: no acute distress, obese Head exam: PRESENT: normocephalic Eye exam: PRESENT: EOMI Mouth exam: PRESENT: moist, neck supple Neck exam: ABSENT: JVD Respiratory exam: PRESENT: clear to auscultation gregorio Cardiovascular exam: PRESENT: RRR GI/Abdominal exam: PRESENT: normal bowel sounds, soft. ABSENT: tenderness Extremities exam: PRESENT: +1 edema Neurological exam: PRESENT: alert, awake Skin exam: PRESENT: dry, warm. ABSENT: cyanosis Results Laboratory Results: 10/07/16 05:26 10/07/16 05:26 10/06/16 10/06/16 10/07/16 23:39 23:39 05:26 Creatine Kinase 44 L CK-MB (CK-2) 0.70 0.80 Troponin I < 0.012 < 0.012 10/07/16 10/07/16 10/07/16 05:26 11:51 11:51 Creatine Kinase 47 L 48 L CK-MB (CK-2) 0.79 Troponin I < 0.012 Impressions: Chest X-Ray 10/06/16 16:56 IMPRESSION: NO ACUTE RADIOGRAPHIC FINDING IN THE CHEST. Chest/Abdomen CTA 10/06/16 18:11 IMPRESSION: Scattered areas of subsegmental atelectasis are present in both lung bases. No pleural effusion. Scattered interstitial and nodular changes are present with mild paraseptal and centrilobular emphysema with upper lobe predominance. TScattered mediastinal adenopathy. here is a 6 x 8 mm noncalcified nodule in the left upper lobe new seen best on image 33, followup exam is recommended in 4 months for surveillance. NO PULMONARY EMBOLI. Hepatic and renal cysts. Left adrenal nodule, probable adenoma. Assessment & Plan - Diagnosis (1) Shortness of breath on exertion Is this a current diagnosis for this admission?: Yes (2) Lower extremity edema Qualifiers: Laterality: bilateral Qualified Code(s): R60.0 - Localized edema Is this a current diagnosis for this admission?: Yes (3) Weight gain Is this a current diagnosis for this admission?: Yes (4) Ventricular arrhythmia Is this a current diagnosis for this admission?: Yes (5) Hypertension Qualifiers: Hypertension type: essential hypertension Qualified Code(s): I10 - Essential (primary) hypertension Is this a current diagnosis for this admission?: Yes (6) Chronic back pain Qualifiers: Back pain location: back pain in unspecified location Back pain laterality: unspecified Qualified Code(s): M54.9 - Dorsalgia, unspecified ; G89.29 - Other chronic pain Is this a current diagnosis for this admission?: Yes (7) COPD (chronic obstructive pulmonary disease) Qualifiers: COPD type: unspecified COPD Qualified Code(s): J44.9 - Chronic obstructive pulmonary disease, unspecified Is this a current diagnosis for this admission?: Yes (8) Obesity Qualifiers: Obesity type: unspecified obesity type Obesity severity: unspecified obesity severity Qualified Code(s): E66.9 - Obesity, unspecified Is this a current diagnosis for this admission?: Yes - Time Time Spent with patient: Less than 15 minutes - Plan Summary Plan Summary: Continue diuretics, and metered-dose inhaler. Arrange for home oxygen.
[2016-10-08] MEDS ORDERED: MAG HYDROX/AL HYDROX/SIMETH SUSP 30 ML UDCUP PO PRN (20:04)
--- NOTE | 2016-10-08 20:37 | PDOC PROGRESS REPORT ---
Subjective Progress Note for:: 10/08/16 Subjective:: Patient seems to be doing better with gradual improvement. Pt is denying any chest arm or neck discomfort. Patient denying any PND, orthopnea. Patient denied any sustained palpitations, dizziness, syncope, near syncope. Patient denying any fever chills. Patient denying any other significant discomfort. Patient is maintaining sinus rhythm, however with frequent VPCs and intermittent bradycardia. Patient remains with significant pedal edema. Review of systems: Rest review of systems negative. Medications: Medications have been reviewed. Physical Exam Vital Signs: Temp Pulse Resp BP Pulse Ox 98.1 F 71 20 131/59 H 96 10/08/16 15:32 10/08/16 15:32 10/08/16 15:32 10/08/16 15:32 10/08/16 15:32 Exam: GENERAL: well-nourished and in no acute distress. Alert and oriented x3 HEAD: Atraumatic, normocephalic. EYES: Pupils equal round and reactive to light, extraocular movements intact, sclera anicteric, conjunctiva are normal. ENT: TMs normal, nares patent, oropharynx clear without exudates. Moist mucous membranes. No oral ulcerations or bleeding gums noted NECK: supple without lymphadenopathy. Trachea is central. No cervical or axillary lymphadenopathy noted. Carotids are 2+, JVD DIFFICULT TO ASSESS BUT FEEL IS ELEVATED LUNGS: Respiration seems nonlabored, no significant accessory muscle action noted. Breath sounds clear to auscultation bilaterally and equal noted. No wheezes rales or rhonchi noted. No significant dullness noted on percussion. CHEST: Palpation of the chest wall shows no significant chest wall tenderness. No other significant abnormalities noted. 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 ABDOMEN: Soft, no significant tenderness appreciated, normoactive bowel sounds. No guarding, no rebound. No rigidity noted . No masses appreciated. EXTREMITIES: Pedal pulses are 1-2+, no calf tenderness noted. No clubbing or cyanosis.2-3 + pedal edema noted NEUROLOGICAL: Focused neurological exam showed no significant neurologic deficit. Normal speech, no focal weakness appreciated. PSYCH: Normal mood, normal affect. Judgment and insight within normal limits. SKIN: No significant ecchymosis, rash, ulcerations or signs of pruritus noted, except for mild erythematous rash noted both chavez area. MUSCULOSKELETAL EXAM: No significant joint swelling noted. Results Impressions: Chest X-Ray 10/06/16 16:56 IMPRESSION: NO ACUTE RADIOGRAPHIC FINDING IN THE CHEST. Chest/Abdomen CTA 10/06/16 18:11 IMPRESSION: Scattered areas of subsegmental atelectasis are present in both lung bases. No pleural effusion. Scattered interstitial and nodular changes are present with mild paraseptal and centrilobular emphysema with upper lobe predominance. TScattered mediastinal adenopathy. here is a 6 x 8 mm noncalcified nodule in the left upper lobe new seen best on image 33, followup exam is recommended in 4 months for surveillance. NO PULMONARY EMBOLI. Hepatic and renal cysts. Left adrenal nodule, probable adenoma. Assessment & Plan - Diagnosis (1) COPD (chronic obstructive pulmonary disease) Qualifiers: COPD type: unspecified COPD Qualified Code(s): J44.9 - Chronic obstructive pulmonary disease, unspecified Is this a current diagnosis for this admission?: Yes (2) Lower extremity edema Qualifiers: Laterality: bilateral Qualified Code(s): R60.0 - Localized edema Is this a current diagnosis for this admission?: Yes (3) Shortness of breath on exertion Is this a current diagnosis for this admission?: Yes (4) Ventricular arrhythmia Is this a current diagnosis for this admission?: Yes (5) Weight gain Is this a current diagnosis for this admission?: Yes (6) Respiratory failure Qualifiers: Chronicity: acute on chronic Respiratory failure complication: hypoxia and hypercapnia Qualified Code(s): J96.21 - Acute and chronic respiratory failure with hypoxia Is this a current diagnosis for this admission?: Yes - Notes Notes: Respiratory failure: Most likely related to obesity hypoventilation syndrome and also underlying COPD. Have consult to Dr. Silva. Patient will benefit from positive pressure ventilation. Patient will also benefit from weight loss. Ventricular arrhythmia: Could be bradycardia related. At this point will reduce verapamil 120 milligrams by mouth daily. Discussed that optimization of ventilation and oxygenation and reduce ventricular ectopy patient was encouraged to schedule a sleep study. 2-D echo results were reviewed. Preliminary results shows normal LVEF. Leg edema: Possibly right heart failure related but could well be due to venous insufficiency, dependency etc. Shortness of breath: Is multifactorial, related to obesity, deconditioning, COPD , right heart failure. Tobacco abuse: Patient gives history of heavy tobacco smoking. Discussed ill effect of tobacco smoking. Patient advised to quit smoking. - Time Time with patient: 15-25 minutes - CODE STATUS was discussed, patient remains full code. Surrogate decision-maker unchanged. Multiple medical problems were addressed.More than 50% of the time spent coordinating care, discussing management plans with involved caregivers. Management plans discussed with involved personnels. Medical decision making was of moderate complexity.
[2016-10-09] MEDS: LANSOPRAZOLE 30 MG TAB.RAP.DR PO SCH (06:34)
[2016-10-09] MEDS: ENOXAPARIN SODIUM INJ 40 MG/0.4 ML DISP.SYRIN SUBCUT SCH (09:42)
[2016-10-09] MEDS: SPIRONOLACTONE 25 MG TABLET PO SCH (09:46)
[2016-10-09] MEDS: FUROSEMIDE 40 MG TABLET PO SCH (09:47)
[2016-10-09] MEDS: ASPIRIN 81 MG TABLET, CHEWABLE PO SCH (09:47)
[2016-10-09] MEDS: CIPROFLOXACIN HCL 500 MG TABLET PO SCH (09:47)
[2016-10-09] MEDS: FLUTICASONE/SALMETEROL DISKUS 250-50 MCG/DOSE IH SCH (09:51)
[2016-10-09] MEDS: VERAPAMIL HCL 120 MG TABLET.SA PO SCH (10:02)
[2016-10-09] MEDS: DOCUSATE SODIUM 100 MG CAPSULE PO SCH (10:03)
--- NOTE | 2016-10-09 12:57 | PDOC PROGRESS REPORT ---
Subjective Progress Note for:: 10/09/16 Subjective:: Patient seems to be doing better with gradual improvement. Pt is denying any chest arm or neck discomfort. Patient denying any PND, orthopnea. Patient denied any sustained palpitations, dizziness, syncope, near syncope. Patient denying any fever chills. Patient denying any other significant discomfort. Patient is maintaining sinus rhythm, however with frequent VPCs and 4 beat WCT noted. Patient remains with significant pedal edema. Review of systems: Rest review of systems negative. Medications: Medications have been reviewed. Physical Exam Vital Signs: Temp Pulse Resp BP Pulse Ox 98.2 F 76 18 146/75 H 97 10/09/16 08:29 10/09/16 08:29 10/09/16 08:29 10/09/16 08:29 10/09/16 12:44 Intake & Output 10/08/16 10/09/16 10/10/16 06:59 06:59 06:59 Intake Total 500 Output Total 2650 Balance -2150 Weight 131.6 kg Exam: GENERAL: well-nourished and in no acute distress. Alert and oriented x3 HEAD: Atraumatic, normocephalic. EYES: Pupils equal round and reactive to light, extraocular movements intact, sclera anicteric, conjunctiva are normal. ENT: TMs normal, nares patent, oropharynx clear without exudates. Moist mucous membranes. No oral ulcerations or bleeding gums noted NECK: supple without lymphadenopathy. Trachea is central. No cervical or axillary lymphadenopathy noted. Carotids are 2+, JVD DIFFICULT TO ASSESS BUT FEEL IS ELEVATED LUNGS: Respiration seems nonlabored, no significant accessory muscle action noted. Breath sounds clear to auscultation bilaterally and equal noted. No wheezes rales or rhonchi noted. No significant dullness noted on percussion. CHEST: Palpation of the chest wall shows no significant chest wall tenderness. No other significant abnormalities noted. 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 ABDOMEN: Soft, no significant tenderness appreciated, normoactive bowel sounds. No guarding, no rebound. No rigidity noted . No masses appreciated. EXTREMITIES: Pedal pulses are 1-2+, no calf tenderness noted. No clubbing or cyanosis.2-3 + pedal edema noted NEUROLOGICAL: Focused neurological exam showed no significant neurologic deficit. Normal speech, no focal weakness appreciated. PSYCH: Normal mood, normal affect. Judgment and insight within normal limits. SKIN: No significant ecchymosis, rash, ulcerations or signs of pruritus noted, except for mild erythematous rash noted both chavez area. MUSCULOSKELETAL EXAM: No significant joint swelling noted. Results Impressions: Chest X-Ray 10/06/16 16:56 IMPRESSION: NO ACUTE RADIOGRAPHIC FINDING IN THE CHEST. Chest/Abdomen CTA 10/06/16 18:11 IMPRESSION: Scattered areas of subsegmental atelectasis are present in both lung bases. No pleural effusion. Scattered interstitial and nodular changes are present with mild paraseptal and centrilobular emphysema with upper lobe predominance. TScattered mediastinal adenopathy. here is a 6 x 8 mm noncalcified nodule in the left upper lobe new seen best on image 33, followup exam is recommended in 4 months for surveillance. NO PULMONARY EMBOLI. Hepatic and renal cysts. Left adrenal nodule, probable adenoma. Assessment & Plan - Diagnosis (1) COPD (chronic obstructive pulmonary disease) Qualifiers: COPD type: unspecified COPD Qualified Code(s): J44.9 - Chronic obstructive pulmonary disease, unspecified Is this a current diagnosis for this admission?: Yes (2) Lower extremity edema Qualifiers: Laterality: bilateral Qualified Code(s): R60.0 - Localized edema Is this a current diagnosis for this admission?: Yes (3) Shortness of breath on exertion Is this a current diagnosis for this admission?: Yes (4) Ventricular arrhythmia Is this a current diagnosis for this admission?: Yes (5) Weight gain Is this a current diagnosis for this admission?: Yes (6) Respiratory failure Qualifiers: Chronicity: acute on chronic Respiratory failure complication: hypoxia and hypercapnia Qualified Code(s): J96.21 - Acute and chronic respiratory failure with hypoxia Is this a current diagnosis for this admission?: Yes - Notes Notes: Respiratory failure: Most likely related to obesity hypoventilation syndrome and also underlying COPD. Patient will benefit from positive pressure ventilation. Patient will also benefit from weight loss. Patient encouraged to schedule a sleep study. Ventricular arrhythmia: Patient had 4 beat run of wide-complex tachycardia. Patient asymptomatic. Could be related to ongoing CHF, which is predominantly right-sided. Discussed that optimization of ventilation and oxygenation and reduce ventricular ectopy patient was encouraged to schedule a sleep study. 2-D echo results were reviewed. Preliminary results shows normal LVEF. I ventricular enlargement was noted. Leg edema: Possibly right heart failure related with contribution due to venous insufficiency, dependency etc. Shortness of breath: Is multifactorial, related to obesity, deconditioning, COPD , right heart failure. Tobacco abuse: Patient gives history of heavy tobacco smoking. Discussed ill effect of tobacco smoking. Patient advised to quit smoking. This was reinforced today. Obesity: Patient advised in aggressive weight loss. - Time Time with patient: 15-25 minutes - CODE STATUS was discussed, patient remains full code. Surrogate decision-maker unchanged. Multiple medical problems were addressed.More than 50% of the time spent coordinating care, discussing management plans with involved caregivers. Management plans discussed with involved personnels. Medical decision making was of moderate complexity.
--- NOTE | 2016-10-09 14:11 | PDOC PROGRESS REPORT ---
Subjective Progress Note for:: 10/09/16 Subjective:: The patient denies any shortness of breath at rest nor any worsening discomfort. No paroxysmal nocturnal dyspnea. Lower extremity edema slightly improved and patient reports increased urination to the bathroom due to the diuretics.. No chills or fever. Occasional cough. Shortness of breath mainly on exertion. Room air O2 sats saturation 87%. Physical Exam Vital Signs: Temp Pulse Resp BP Pulse Ox 97.6 F 63 19 104/50 L 97 10/09/16 12:36 10/09/16 12:36 10/09/16 12:36 10/09/16 12:36 10/09/16 12:44 Intake & Output 10/08/16 10/09/16 10/10/16 06:59 06:59 06:59 Intake Total 500 Output Total 2650 Balance -2150 Weight 131.6 kg General appearance: PRESENT: no acute distress, cooperative, obese Head exam: PRESENT: normocephalic Eye exam: PRESENT: EOMI Mouth exam: PRESENT: moist, neck supple Neck exam: ABSENT: JVD Respiratory exam: PRESENT: clear to auscultation gregorio. ABSENT: rhonchi, wheezes Cardiovascular exam: PRESENT: RRR. ABSENT: gallop GI/Abdominal exam: PRESENT: normal bowel sounds, soft. ABSENT: distended, tenderness Extremities exam: PRESENT: +2 edema, other - Redness on the left is better. Neurological exam: PRESENT: alert, awake, oriented to person, oriented to place , oriented to time, oriented to situation Skin exam: PRESENT: dry, warm. ABSENT: cyanosis Results Impressions: Chest X-Ray 10/06/16 16:56 IMPRESSION: NO ACUTE RADIOGRAPHIC FINDING IN THE CHEST. Chest/Abdomen CTA 10/06/16 18:11 IMPRESSION: Scattered areas of subsegmental atelectasis are present in both lung bases. No pleural effusion. Scattered interstitial and nodular changes are present with mild paraseptal and centrilobular emphysema with upper lobe predominance. TScattered mediastinal adenopathy. here is a 6 x 8 mm noncalcified nodule in the left upper lobe new seen best on image 33, followup exam is recommended in 4 months for surveillance. NO PULMONARY EMBOLI. Hepatic and renal cysts. Left adrenal nodule, probable adenoma. Assessment & Plan - Diagnosis (1) Shortness of breath on exertion Is this a current diagnosis for this admission?: Yes (2) Lower extremity edema Qualifiers: Laterality: bilateral Qualified Code(s): R60.0 - Localized edema Is this a current diagnosis for this admission?: Yes (3) Weight gain Is this a current diagnosis for this admission?: Yes (4) Ventricular arrhythmia Is this a current diagnosis for this admission?: Yes (5) Hypertension Qualifiers: Hypertension type: essential hypertension Qualified Code(s): I10 - Essential (primary) hypertension Is this a current diagnosis for this admission?: Yes (6) Chronic back pain Qualifiers: Back pain location: back pain in unspecified location Back pain laterality: unspecified Qualified Code(s): M54.9 - Dorsalgia, unspecified ; G89.29 - Other chronic pain Is this a current diagnosis for this admission?: Yes (7) COPD (chronic obstructive pulmonary disease) Qualifiers: COPD type: unspecified COPD Qualified Code(s): J44.9 - Chronic obstructive pulmonary disease, unspecified Is this a current diagnosis for this admission?: Yes (8) Obesity Qualifiers: Obesity type: unspecified obesity type Obesity severity: unspecified obesity severity Qualified Code(s): E66.9 - Obesity, unspecified Is this a current diagnosis for this admission?: Yes - Time Time Spent with patient: 15-24 minutes - Plan Summary Plan Summary: Continued discharge plan for today. Awaiting portable oxygen. Please refer to the discharge summary performed 10/08/2016.
[2016-10-09 14:38] VITALS: BP 126/51
== END 2016-10-09 17:22 | disposition home or self-care (01) | DRG 190 ==
LOC: ER 16:31 → EH 18:49 → UNDOADMOB 18:56 → EH 18:56 → 4N 20:55 → OBSVTOIN 10-08 15:03
PROC: 5A09357 Assistance with Respiratory Ventilation, Less than 24 Consecutive Hours, Continuous Positive Airway Pressure (ICD-10-PCS; principal; 2016-10-07)
DX: J44.9 Chronic obstructive pulmonary disease, unspecified (principal); J96.21 Acute and chronic respiratory failure with hypoxia; J96.22 Acute and chronic respiratory failure with hypercapnia; I47.0 Re-entry ventricular arrhythmia; Z68.41 Body mass index [BMI] 40.0-44.9, adult; E66.2 Morbid (severe) obesity with alveolar hypoventilation; I10 Essential (primary) hypertension; G89.29 Other chronic pain; M54.9 Dorsalgia, unspecified; I49.3 Ventricular premature depolarization; N28.1 Cyst of kidney, acquired; I48.91 Unspecified atrial fibrillation; E78.5 Hyperlipidemia, unspecified; I50.9 Heart failure, unspecified; F17.210 Nicotine dependence, cigarettes, uncomplicated; I27.2 Other secondary pulmonary hypertension; Z79.82 Long term (current) use of aspirin; Z79.899 Other long term (current) drug therapy; Z88.6 Allergy status to analgesic agent; Z82.3 Family history of stroke; Z82.49 Family history of ischemic heart disease and other diseases of the circulatory system
CPT/HCPCS: 36415; 36600; 71010; 71275; 80048; 80053; 82550; 82553; 82803; 83735; 83880; 84100; 84443; 84484; 85025; 85027; 93005; 93010; 93306; 93970; 96372; 96374; 99285; G0378; J1650; J1940; J3490

== ENCOUNTER 2017-09-24 05:54 | Inpatient (IN) | payer OTHER, MEDICARE ==
--- NOTE | 2017-09-24 06:59 | ER Document Report ---
ED GI/ - General Chief Complaint: Abdominal Pain Stated Complaint: ABDOMINAL PAIN Time Seen by Provider: 09/24/17 06:57 Notes: The patient is a 72-year-old male, past medical history appendectomy, pacemaker , HTN, presents with increasing upper abdominal pain, worse on the right, starting earlier this morning. The pain is worsening in intensity. His last bowel movement was last night. He also had some nausea and vomiting, but this has resolved. Patient denies back pain, fevers, flank pain, numbness, tingling , urinary symptoms, chest pain, shortness of breath, headache or rash. TRAVEL OUTSIDE OF THE [place] IN LAST 30 DAYS: No - Related Data Allergies/Adverse Reactions: codeine [Codeine] Allergy (Verified 10/06/16 17:13) Past Medical History - General Information source: Patient - Social History Smoking Status: Unknown if Ever Smoked Family History: None, CAD, CVA - Past Medical History Cardiac Medical History: Reports: Hx Atrial Fibrillation, Hx Hypercholesterolemia, Hx Hypertension Pulmonary Medical History: Reports: Hx COPD Renal/ Medical History: Denies: Hx Peritoneal Dialysis Musculoskeltal Medical History: Reports Hx Arthritis - back pain Past Surgical History: Reports: Hx Appendectomy, Hx Herniorrhaphy, Hx Orthopedic Surgery - right shoulder surgery, Hx Tonsillectomy - Immunizations Hx Diphtheria, Pertussis, Tetanus Vaccination: Yes - Unknown Hx Pneumococcal Vaccination: 08/15/14 Review of Systems - Review of Systems Notes: REVIEW OF SYSTEMS: CONSTITUTIONAL: -fevers, -chills EENT: -eye pain, -difficulty swallowing, -nasal congestion CARDIOVASCULAR: -chest pain, -syncope. RESPIRATORY: -cough, -SOB GASTROINTESTINAL: +abdominal pain, +nausea, +vomiting, -diarrhea GENITOURINARY: -dysuria, -hematuria MUSCULOSKELETAL: -back pain, -neck pain SKIN: -rash or skin lesions. HEMATOLOGIC: -easy bruising or bleeding. LYMPHATIC: -swollen, enlarged glands. NEUROLOGICAL: -altered mental status or loss of consciousness, -headache, - neurologic symptoms PSYCHIATRIC: -anxiety, -depression. ALL OTHER SYSTEMS REVIEWED AND NEGATIVE. Physical Exam - Vital signs Vitals: Temp Pulse Resp BP Pulse Ox 97.6 F 66 18 188/81 H 95 09/24/17 06:02 09/24/17 06:02 09/24/17 06:02 09/24/17 06:02 09/24/17 06:02 - Notes Notes: PHYSICAL EXAMINATION: GENERAL: Uncomfortable. HEAD: Atraumatic, normocephalic. EYES: Pupils equal round and reactive to light, extraocular movements intact, sclera anicteric, conjunctiva are normal. ENT: nares patent, oropharynx clear without exudates. Moist mucous membranes. NECK: Normal range of motion, supple without lymphadenopathy LUNGS: Breath sounds clear to auscultation bilaterally and equal. No wheezes rales or rhonchi. HEART: Regular rate and rhythm without murmurs ABDOMEN: Mildly distended, tenderness over upper abdomen. Normal bowel sounds. EXTREMITIES: Normal range of motion, no pitting or edema. No cyanosis. NEUROLOGICAL: Cranial nerves grossly intact. Normal speech, normal gait. Normal sensory and motor exams. PSYCH: Normal mood, normal affect. SKIN: Warm, Dry, normal turgor, no rashes or lesions noted. Course - Re-evaluation Re-evalutation: CT abdomen and pelvis obtained due to concern for obstruction with increased abdominal pain, nausea and vomiting. However, there are no acute findings. Patient has a left kidney mass and left adrenal mass that he is aware of and he has already obtained MRIs and is being closely followed by his specialists at the [facility]. Patient's blood work is remarkable for a leukocytosis and elevated LFTs. Lipase and bilirubin levels are normal. Ultrasound of the right upper quadrant is pending to assess for causes of his elevated LFTs and pain. 09/24/17 11:45 US shows multiple gallstones, but no evidence of gallbladder thickening or CBD stones. He also has fatty liver disease, which the patient and son are aware of. Spoke to Dr. Escamilla (Surgicalist) and he recommends admission to hospitalist due to multiple comorbidities and he will operate on the patient tomorrow morning for symptomatic cholelithiasis. Will provide him a dose of Unasyn due to leukocytosis and possible early cholecystitis and keep patient n.p.o. 09/24/17 11:[address] Nath and will admit patient as Inpatient. - Vital Signs Vital signs: Temp Pulse Resp BP Pulse Ox 97.6 F 66 19 147/90 H 97 09/24/17 06:02 09/24/17 06:02 09/24/17 10:28 09/24/17 10:28 09/24/17 10:28 - Laboratory Result Diagrams: 09/24/17 07:20 09/24/17 07:20 Laboratory results interpreted by me: 09/24/17 09/24/17 09/24/17 07:20 07:20 09:19 WBC 16.9 H RBC 4.33 L Hgb 12.5 L Hct 37.7 L RDW 15.3 H Seg Neuts % (Manual) 87 H Lymphocytes % (Manual) 6 L Abs Neuts (Manual) 14.7 H Carbon Dioxide 31 H Glucose 164 H AST 409 H ALT 422 H Alkaline Phosphatase 158 H Creatine Kinase 43 L Urine Protein 100 H - Diagnostic Test Radiology reviewed: Image reviewed, Reports reviewed Radiology results interpreted by me: CT A/P: 1. 2.2 CM SOLID MASS IN THE LEFT KIDNEY. RECOMMEND FOLLOW-UP WITH ROUTINE OUTPATIENT MRI OF THE ABDOMEN. 2. BILOBED SOFT TISSUE MASS IN THE LEFT ADRENAL GLAND. THIS COULD BE AN ADENOMA ALTHOUGH SOMEWHAT HETEROGENOUS APPEARANCE. THIS ALSO WOULD BE EVALUATED WITH OUTPATIENT MRI OF THE ABDOMEN. 3. NO OTHER SIGNIFICANT OR ACUTE FINDING IN THE ABDOMEN OR PELVIS ON CT SCAN WITH IV CONTRAST. - EKG Interpretation by Me EKG shows normal: Sinus rhythm, [place], Intervals, QRS Complexes, ST-T Waves Rate: Normal Discharge - Discharge Clinical Impression: Symptomatic cholelithiasis, Elevated LFTs, Right upper quadrant abdominal pain Condition: Stable Disposition: ADMITTED INPATIENT Admitting Provider: Hospitalist - [facility] Unit Admitted: Medical Floor
[2017-09-24] MEDS ORDERED: ONDANSETRON HCL INJ/PF 4 MG/2 ML SDV IV ONE (07:03)
[2017-09-24] MEDS ORDERED: MORPHINE SULFATE 10 MG/ML INJ IV ONE (07:03)
[2017-09-24] MEDS ORDERED: HYDROMORPHONE HCL INJ/PF 2 MG/ML AMPULE IV ONE ×4 (07:24→12:34)
[2017-09-24 07:54] LABS: HEMATOCRIT 37.7 % (37.9-51.0); HEMOGLOBIN 12.5 g/dL (13.5-17.0); MEAN CORPUSCULAR HEMOGLOBIN 28.9 pg (27.0-33.4); MEAN CORPUSCULAR HGB CONC 33.2 g/dL (32.0-36.0); MEAN CORPUSCULAR VOLUME 87 fl (80-97); PLATELET COUNT 270 10^3/uL (150-450); RED BLOOD COUNT 4.33 10^6/uL (4.35-5.55); RED CELL DISTRIBUTION WIDTH 15.3 % (11.5-14.0); WHITE BLOOD COUNT 16.9 10^3/uL (4.0-10.5)
[2017-09-24 08:06] LABS: ALANINE AMINOTRANSFERASE 422 U/L (21-72); ALBUMIN 3.9 g/dL (3.5-5.0); ALKALINE PHOSPHATASE 158 U/L (38-126); ANION GAP 9 (5-19); ASPARTATE AMINO TRANSFERASE 409 U/L (17-59); BLOOD UREA NITROGEN 15 mg/dL (7-20); CALCIUM 9.5 mg/dL (8.4-10.2); CARBON DIOXIDE 31 mmol/L (22-30); CHLORIDE 101 mmol/L (98-107); CREATINE KINASE 43 U/L (55-170); GLUCOSE 164 mg/dL (75-110); LIPASE 66.4 U/L (23-300); POTASSIUM 4.2 mmol/L (3.6-5.0); SODIUM 141.2 mmol/L (137-145); TOTAL PROTEIN 6.4 g/dL (6.3-8.2)
[2017-09-24 08:13] LABS: ABSOLUTE MONOCYTES # (MANUAL) 1.2 10^3/uL (0.1-1.4); ABSOLUTE NEUTROPHILS# (MANUAL) 14.7 10^3/uL (1.7-8.2); BASOPHILS % (MANUAL) 0 % (0-2); EOSINOPHILS % (MANUAL) 0 % (0-6); LYMPHOCYTES % (MANUAL) 6 % (13-45); MONOCYTES % (MANUAL) 7 % (3-13); SEGMENTED NEUTROPHILS % (MAN) 87 % (42-78); TOTAL CELLS COUNTED 100
[2017-09-24 08:15] LABS: ANISOCYTOSIS SLIGHT; OVALOCYTES SLIGHT; PLATELET COMMENT ADEQUATE; POIKILOCYTOSIS SLIGHT
--- NOTE | 2017-09-24 09:15 | RADIOLOGY REPORT (SQ) ---
EXAM DESCRIPTION: CT ABD/PELVIS WITH IV ONLY COMPLETED DATE/TIME: 09/24/2017 9:00 am REASON FOR STUDY: diffuse abdominal pain, N/V, obstruction? COMPARISON: None. TECHNIQUE: CT scan of the abdomen and pelvis performed using helical scanning technique with dynamic intravenous contrast injection. No oral contrast. Images reviewed with lung, soft tissue, and bone windows. Reconstructed coronal and sagittal MPR images reviewed. Delayed images for evaluation of the urinary system also acquired. All images stored on PACS. All CT scanners at this facility use dose modulation, iterative reconstruction, and/or weight based d osing when appropriate to reduce radiation dose to as low as reasonably achievable (ALARA). [facility]: Dose Right [facility]: CareDose [facility]: Dose Right [facility]: Teradose 4D [facility]: Avance Pay CONTRAST TYPE AND DOSE: contrast/concentration: Isovue 370.00 mg/ml; Total Contrast Delivered: 100.0 ml; Total Saline Delivered: 72.0 ml RENAL FUNCTION: BUN 15 creatinine 0.65. RADIATION DOSE: CT Rad equipment meets quality standard of care and radiation dose reduction techniq ues were employed. CTDIvol: 20.9 - 21.1 mGy. DLP: 2395 mGy-cm.. LIMITATIONS: None. FINDINGS: LOWER CHEST: No significant findings. Scarring in the lung bases. No nodules or infiltra josef. LIVER: Normal size. No masses. No dilated ducts. SPLEEN: Normal size. No focal lesions. PANCREAS: No masses. No significant calcifications. No adjacent inflammation or peripancreatic fluid collections. Pancreatic duct not dilated. GALLBLADDER: No identified stones by CT criteria. No inflammatory changes to suggest cholecystitis. ADRENAL GLANDS: Bilobed mass in the left adrenal gland. The largest component measures 2.5 x 3.5 cm with faint calcifications. RIGHT KIDNEY AND URETER: Multiple low-attenuation cortical lesions. Subcentimeter lesions are too sm all to characterize. Larger lesions have the appearance of cortical cysts. No solid masses. No si gnificant calcifications. No hydronephrosis or hydroureter. LEFT KIDNEY AND URETER: Multiple low-attenuation cortical lesions. Subcentimeter lesions are too sma ll to characterize. Most of the larger lesions have appearance of cortical cysts. 2.2 cm mass with initial Hounsfield units of 79 and delayed Hounsfield units of 53. No significant calcifications. No hydronephrosis or hydroureter. AORTA AND VESSELS: No aneurysm. No dissection. Renal arteries, SMA, celiac without stenosis. RETROPERITONEUM: No retroperitoneal adenopathy, hemorrhage or masses. BOWEL AND PERITONEAL CAVITY: No masses or inflammatory changes. No free fluid or peritoneal masses. APPENDIX: Not visualized. PELVIS: No mass. No free fluid. Normal bladder. ABDOMINAL WALL: No masses. No hernias. BONES: No significant or acute findings. OTHER: No other significant finding. IMPRESSION: 1. 2.2 CM SOLID MASS IN THE LEFT KIDNEY. RECOMMEND FOLLOW-UP WITH ROUTINE OUTPATIENT MRI OF THE ABDO MEN. 2. BILOBED SOFT TISSUE MASS IN THE LEFT ADRENAL GLAND. THIS COULD BE AN ADENOMA ALTHOUGH SOMEWHAT HE TEROGENOUS APPEARANCE. THIS ALSO WOULD BE EVALUATED WITH OUTPATIENT MRI OF THE ABDOMEN. 3. NO OTHER SIGNIFICANT OR ACUTE FINDING IN THE ABDOMEN OR PELVIS ON CT SCAN WITH IV CONTRAST. TECHNICAL DOCUMENTATION: JOB ID: [id number] Quality ID # [id number]: Final reports with documentation of one or more dose reduction techniques (e.g., Au tomated exposure control, adjustment of the mA and/or kV according to patient size, use of iterative reconstruction technique) 2010 [employer]- All Rights Reserved
[2017-09-24 09:42] LABS: APPEARANCE,URINE CLEAR; BILIRUBIN,URINE NEGATIVE (NEGATIVE); COLOR,URINE YELLOW; GLUCOSE, URINE NEGATIVE (NEGATIVE); KETONES,URINE NEGATIVE (NEGATIVE); LEUKOCYTE ESTERASE,URINE NEGATIVE (NEGATIVE); NITRITE,URINE NEGATIVE (NEGATIVE); PROTEIN,URINE 100 mg/dL (NEGATIVE); URINE SPECIFIC GRAVITY 1.026; UROBILINOGEN,URINE NEGATIVE mg/dL (<2.0)
--- NOTE | 2017-09-24 10:19 | EKG REPORT ---
SEVERITY:- BORDERLINE ECG - SINUS RHYTHM PROBABLE LEFT ATRIAL ABNORMALITY BORDERLINE RIGHT AXIS DEVIATION BORDERLINE INFERIOR Q WAVES : Confirmed by: Mal Machado 24-Sep-2017 10:19:08
--- NOTE | 2017-09-24 10:56 | RADIOLOGY REPORT (SQ) ---
EXAM DESCRIPTION: U/S ABDOMEN LIMITED W/O DOP COMPLETED DATE/TIME: 09/24/2017 10:36 am REASON FOR STUDY: abnormal LFTs COMPARISON: None. TECHNIQUE: Dynamic and static grayscale images acquired of the right upper quadrant and recorded on PACS. Additional selected color Doppler and spectral images recorded. LIMITATIONS: Study limited due to acoustical interference from fat or from air in the bowel. FINDINGS: PANCREAS: Parts of the pancreas poorly seen secondary to acoustical interference from fat or from air in the bowel. LIVER: Enlarged, measuring 19.8 cm. Echotexture is coarse with increased echogenicity consistent wit h fatty infiltration. 1.5 cm cyst. LIVER VASCULATURE: Normal directional flow of the main portal vein and hepatic veins. GALLBLADDER: Gallstones, the largest measuring 3.3 cm. Echogenic wall with ring down artifact consis tent with adenomyomatosis. ULTRASOUND-DETECTED QUINN'S SIGN: Negative. INTRAHEPATIC DUCTS AND COMMON DUCT: CBD and intrahepatic ducts normal caliber. No filling defects. INFERIOR VENA CAVA: Normal flow. AORTA: No aneurysm. RIGHT KIDNEY: Normal size. Normal echogenicity. 1.9 cm cyst. No solid or suspicious masses. No hydr onephrosis. No calcifications. PERITONEAL CAVITY AND RIGHT PLEURAL SPACE: No ascites or effusions. OTHER: No other significant finding. IMPRESSION: 1. GALLSTONES, THE LARGEST MEASURING 3.3 CM. ADENOMYOMATOSIS OF THE GALLBLADDER WALL. 2. HEPATOMEGALY WITH DIFFUSE FATTY INFILTRATION OF THE LIVER. 3. NO OTHER SIGNIFICANT FINDINGS. TECHNICAL DOCUMENTATION: JOB ID: [id number] [email or web address]- All Rights Reserved
[2017-09-24] MEDS ORDERED: AMPICILLIN SOD/SULBACTAM 3 GM VIAL IV ONE (11:45)
[2017-09-24] MEDS ORDERED: ONDANSETRON HCL INJ/PF 4 MG/2 ML SDV IV PRN (13:36)
[2017-09-24] MEDS ORDERED: GLUCAGON,HUMAN RECOMB 1 MG INJ SUBCUT PRN (13:36)
[2017-09-24] MEDS ORDERED: DEXTROSE 40% GEL 15 GM TUBE PO PRN ×2 (13:36)
[2017-09-24] MEDS ORDERED: OXYCODONE-ACETAMINOPHEN 5-325 MG TABLET PO PRN (13:36)
[2017-09-24] MEDS ORDERED: DEXTROSE 50%-WATER 25 GM/50 ML DISP.SYRIN IV PRN ×2 (13:36)
[2017-09-24] MEDS ORDERED: ACETAMINOPHEN 325 MG TABLET PO PRN (13:36)
[2017-09-24] MEDS ORDERED: RINGERS SOLUTION,LACTATED 1,000 ML IV PRN (13:36)
[2017-09-24] MEDS ORDERED: IPRATROPIUM/ALBUTEROL 0.5-2.5 MG/3 ML AMPUL NEB PRN (14:12)
--- NOTE | 2017-09-24 14:20 | PDOC H&P ---
History of Present Illness Admission Date/PCP: 09/24/17 12:31 Patient complains of: ABD pain History of Present Illness: STONE GROVE JR is a 72 year old male Past Medical History Cardiac Medical History: Reports: Atrial Fibrillation, Hyperlipidema, Hypertension Pulmonary Medical History: Reports: Chronic Obstructive Pulmonary Disease (COPD) Musculoskeltal Medical History: Reports: Arthritis - back pain Past Surgical History Past Surgical History: Reports: Appendectomy, Herniorrhaphy, Orthopedic Surgery - right shoulder surgery, Tonsillectomy Social History Smoking Status: Unknown if Ever Smoked Frequency of Alcohol Use: None Hx Recreational Drug Use: No Drugs: None Hx Prescription Drug Abuse: No - Advance Directive Resuscitation Status: Full Code Family History Family History: None, CAD, CVA Parental Family History Reviewed: Yes Children Family History Reviewed: Yes Sibling(s) Family History Reviewed.: Yes Medication/Allergy Home Medications: Aspirin [Aspirin 81 mg Chewable Tablet] 81 mg PO DAILY 10/06/16 Multivit with Iron,Minerals [[facility]] 1 each PO DAILY 10/06/16 Tamsulosin HCl [Flomax 0.4 mg Cap.sr] 0.4 mg PO DAILY 10/06/16 Ciprofloxacin HCl [Cipro 500 mg Tablet] 500 mg PO Q12 #18 tablet 10/08/16 Fluticasone/Salmeterol [Advair 250-50 Diskus 14 Dose/Diskus] 1 inh IH Q12 #1 inhaler 10/08/16 Furosemide [Lasix] 40 mg PO BID #60 tablet 10/08/16 Spironolactone [Aldactone 25 mg Tablet] 25 mg PO DAILY #30 tablet 10/08/16 Verapamil HCl [Verapamil ER] 120 mg PO DAILY #0 10/08/16 Allergies/Adverse Reactions: codeine [Codeine] Allergy (Verified 10/06/16 17:13) Review of Systems Constitutional: PRESENT: chills, fever(s), weakness Eyes: ABSENT: visual disturbances Ears: ABSENT: hearing changes Cardiovascular: ABSENT: chest pain, dyspnea on exertion, edema, orthropnea, palpitations Respiratory: ABSENT: cough, hemoptysis Gastrointestinal: PRESENT: abdominal pain, nausea, vomiting Genitourinary: ABSENT: dysuria, hematuria Musculoskeletal: ABSENT: joint swelling Integumentary: ABSENT: rash, wounds Neurological: ABSENT: abnormal gait, abnormal speech, confusion, dizziness, focal weakness, syncope Psychiatric: ABSENT: anxiety, depression, homidical ideation, suicidal ideation Endocrine: ABSENT: cold intolerance, heat intolerance, polydipsia, polyuria Hematologic/Lymphatic: ABSENT: easy bleeding, easy bruising Physical Exam Vital Signs: Temp Pulse Resp BP Pulse Ox 97.6 F 66 14 137/86 H 97 09/24/17 06:02 09/24/17 06:02 09/24/17 13:01 09/24/17 13:01 09/24/17 13:01 Intake & Output 09/23/17 09/24/17 09/25/17 06:59 06:59 06:59 Output Total 175 Balance -175 General appearance: PRESENT: mild distress, morbidly obese, well-developed, well -nourished Head exam: PRESENT: atraumatic, normocephalic Eye exam: PRESENT: conjunctiva pink, EOMI. ABSENT: scleral icterus Ear exam: PRESENT: normal external ear exam Mouth exam: PRESENT: moist, tongue midline Neck exam: ABSENT: carotid bruit, JVD, lymphadenopathy, thyromegaly Respiratory exam: PRESENT: clear to auscultation gregorio. ABSENT: rales, rhonchi, wheezes Cardiovascular exam: PRESENT: RRR. ABSENT: diastolic murmur, rubs, systolic murmur Pulses: PRESENT: normal dorsalis pedis pul Vascular exam: PRESENT: normal capillary refill GI/Abdominal exam: PRESENT: normal bowel sounds, tenderness - +right upper qd tenderness, +midepigastric tenderness, Rectal exam: PRESENT: deferred Extremities exam: PRESENT: full ROM. ABSENT: calf tenderness, clubbing, pedal edema Musculoskeletal exam: PRESENT: full ROM Neurological exam: PRESENT: alert, awake, oriented to person, oriented to place , oriented to time, oriented to situation, CN II-XII grossly intact. ABSENT: motor sensory deficit Psychiatric exam: PRESENT: appropriate affect, normal mood. ABSENT: homicidal ideation, suicidal ideation Skin exam: PRESENT: dry, intact, warm. ABSENT: cyanosis, rash Results Impressions: Abdomen/Pelvis CT 09/24/17 06:57 IMPRESSION: 1. 2.2 CM SOLID MASS IN THE LEFT KIDNEY. RECOMMEND FOLLOW-UP WITH ROUTINE OUTPATIENT MRI OF THE ABDOMEN. 2. BILOBED SOFT TISSUE MASS IN THE LEFT ADRENAL GLAND. THIS COULD BE AN ADENOMA ALTHOUGH SOMEWHAT HETEROGENOUS APPEARANCE. THIS ALSO WOULD BE EVALUATED WITH OUTPATIENT MRI OF THE ABDOMEN. 3. NO OTHER SIGNIFICANT OR ACUTE FINDING IN THE ABDOMEN OR PELVIS ON CT SCAN WITH IV CONTRAST. Abdomen Ultrasound 09/24/17 08:51 IMPRESSION: 1. GALLSTONES, THE LARGEST MEASURING 3.3 CM. ADENOMYOMATOSIS OF THE GALLBLADDER WALL. 2. HEPATOMEGALY WITH DIFFUSE FATTY INFILTRATION OF THE LIVER. 3. NO OTHER SIGNIFICANT FINDINGS. Assessment & Plan - Diagnosis (1) Right upper quadrant abdominal pain Is this a current diagnosis for this admission?: Yes Plan: In setting of acute cholecystitis: will place patient on Zosyn. Surgery is planning to do procedure in a.m. Will check blood cultures (2) Elevated LFTs Is this a current diagnosis for this admission?: Yes Plan: In setting of acute cholecystitis with suspicion of gallstone involvement: Patient to be evaluated by surgery. CT and ultrasound do not demonstrate evidence of stone present. CMP in a.m. (3) COPD (chronic obstructive pulmonary disease) Qualifiers: COPD type: unspecified COPD Qualified Code(s): J44.9 - Chronic obstructive pulmonary disease, unspecified Is this a current diagnosis for this admission?: No Plan: VENKAT Fernández (4) Hypertension Qualifiers: Hypertension type: essential hypertension Qualified Code(s): I10 - Essential (primary) hypertension Is this a current diagnosis for this admission?: Yes Plan: Will restart home medication (5) Severe obesity (BMI 35.0-39.9) Is this a current diagnosis for this admission?: Yes Plan: Encourage dietary changes. (6) Ventricular arrhythmia Is this a current diagnosis for this admission?: Yes Plan: Xarelto held due to pt needing surgery. Last dose of Xarelto was no 09/23/17. (7) Diastolic congestive heart failure Qualifiers: Heart failure chronicity: chronic Qualified Code(s): I50.32 - Chronic diastolic (congestive) heart failure Is this a current diagnosis for this admission?: Yes Plan: Placed on IV fluids at 50 cc/h. Will monitor patient for volume overload. Not taking Lasix dose at home we will give one-time dose of Lasix IV. (8) DVT prophylaxis Is this a current diagnosis for this admission?: Yes Plan: SCDs. - Time Time Spent: 30 to 50 Minutes
[2017-09-24 16:35] LABS: CREATINE KINASE MB 1.99 ng/mL (<4.55)
[2017-09-24 16:41] LABS: TROPONIN I 0.109 ng/mL
[2017-09-24] MEDS: PIPERACILLIN SODIUM/TAZOBACTAM 3.375 GM in NORMAL SALINE 100 ML IV SCH ×2 (17:49→23:01)
[2017-09-25 02:15] LABS: CREATINE KINASE MB 1.9 ng/mL (<4.55); TROPONIN I 0.047 ng/mL
[2017-09-25] MEDS: PIPERACILLIN SODIUM/TAZOBACTAM 3.375 GM in NORMAL SALINE 100 ML IV SCH ×3 (05:08→17:13)
[2017-09-25 07:20] LABS: ABSOLUTE LYMPHOCYTES (AUTO) 1.1 10^3/uL (0.5-4.7); ABSOLUTE MONOCYTES (AUTO) 1.2 10^3/uL (0.1-1.4); ABSOLUTE NEUT (AUTO) 9.5 10^3/uL (1.7-8.2); BASOPHILS % (AUTO) 0.4 % (0-2); EOSINOPHILS % (AUTO) 0.3 % (0-6); HEMATOCRIT 33.8 % (37.9-51.0); HEMOGLOBIN 11.3 g/dL (13.5-17.0); MEAN CORPUSCULAR HEMOGLOBIN 29.1 pg (27.0-33.4); MEAN CORPUSCULAR HGB CONC 33.3 g/dL (32.0-36.0); MEAN CORPUSCULAR VOLUME 87 fl (80-97); MONOCYTES % (AUTO) 9.8 % (3-13); PLATELET COUNT 253 10^3/uL (150-450); RED BLOOD COUNT 3.87 10^6/uL (4.35-5.55); RED CELL DISTRIBUTION WIDTH 15.2 % (11.5-14.0); SEGMENTED NEUTROPHILS % (AUTO) 80.5 % (42-78); TOTAL CELLS COUNTED % (AUTO) 100 %; WHITE BLOOD COUNT 11.8 10^3/uL (4.0-10.5)
[2017-09-25 07:27] LABS: ALANINE AMINOTRANSFERASE 237 U/L (21-72); ALKALINE PHOSPHATASE 115 U/L (38-126); ANION GAP 6 (5-19); ASPARTATE AMINO TRANSFERASE 110 U/L (17-59); BILIRUBIN,DIRECT 0.2 mg/dL (0.0-0.4); BILIRUBIN,TOTAL 1.3 mg/dL (0.2-1.3); BLOOD UREA NITROGEN 13 mg/dL (7-20); CALCIUM 9.3 mg/dL (8.4-10.2); CARBON DIOXIDE 32 mmol/L (22-30); CHLORIDE 101 mmol/L (98-107); CHOLESTEROL 151.48 mg/dL (0-200); GLUCOSE 100 mg/dL (75-110); MAGNESIUM 1.9 mg/dL (1.6-2.3); POTASSIUM 4.2 mmol/L (3.6-5.0); SODIUM 138.7 mmol/L (137-145); TOTAL PROTEIN 5.6 g/dL (6.3-8.2); TRIGLYCERIDES 52 mg/dL (<150)
[2017-09-25 07:38] LABS: DIRECT LDL 96 mg/dL (<100)
--- NOTE | 2017-09-25 09:04 | EKG REPORT ---
SEVERITY:- ABNORMAL ECG - ATRIAL-PACED COMPLEXES BORDERLINE INFERIOR Q WAVES : Confirmed by: Mal Machado 25-Sep-2017 09:04:00
--- NOTE | 2017-09-25 09:04 | EKG REPORT ---
SEVERITY:- BORDERLINE ECG - SINUS RHYTHM BORDERLINE INFERIOR Q WAVES : Confirmed by: Mal Machado 25-Sep-2017 09:04:13
[2017-09-25] MEDS: PANTOPRAZOLE SODIUM 40 MG VIAL IV SCH (09:58)
--- NOTE | 2017-09-25 10:01 | PDOC CONSULTATION ---
Consultation Consult Date: 09/24/17 Attending physician:: EMILY CHAMBERLAIN Consult reason:: Preop cardiac clearance History of Present Illness Admission Date/PCP: 09/24/17 12:31 Patient complains of: Abdominal pain History of Present Illness: STONE GROVE JR is a 72 year old male with past medical history appendectomy, pacemaker, HTN, presents with increasing upper abdominal pain, worse on the right, starting earlier this morning. The pain is worsening in intensity. His last bowel movement was last night. He also had some nausea and vomiting, but this has resolved. Patient denies back pain, fevers, flank pain, numbness, tingling, urinary symptoms, chest pain, shortness of breath, headache or rash. Patient is denying any chest pain. He denied any significant shortness of breath. Patient claims he had a pacemaker placed about 2 years ago. He is however noted to have significant ejection systolic murmur in the aortic area. Past Medical History Cardiac Medical History: Reports: Atrial Fibrillation, Hyperlipidema, Hypertension Pulmonary Medical History: Reports: Chronic Obstructive Pulmonary Disease (COPD) Musculoskeltal Medical History: Reports: Arthritis - back pain Psychiatric Medical History: Denies: Depression Past Surgical History Past Surgical History: Reports: Appendectomy, Herniorrhaphy, Orthopedic Surgery - right shoulder surgery, Tonsillectomy Social History Information Source: Patient Smoking Status: Former Smoker Frequency of Alcohol Use: None Hx Recreational Drug Use: No Drugs: None Hx Prescription Drug Abuse: No - Advance Directive Resuscitation Status: Full Code Family History Family History: None, CAD, CVA Parental Family History Reviewed: Yes Children Family History Reviewed: Yes Sibling(s) Family History Reviewed.: Yes Medication/Allergy Home Medications: Aspirin [Aspirin 81 mg Chewable Tablet] 81 mg PO DAILY 09/24/17 Fluticasone/Salmeterol [Advair 250-50 Diskus 14 Dose/Diskus] 1 puff IH Q12 09/24 Furosemide [Lasix 40 mg Tablet] 40 mg PO DAILY 09/24/17 Multivitamin [Multivitamins] 1 cap PO DAILY 09/24/17 Spironolactone [Aldactone 25 mg Tablet] 25 mg PO DAILY 09/24/17 Tamsulosin HCl [Flomax 0.4 mg Cap.sr] 0.4 mg PO DAILY 09/24/17 Verapamil HCl [Calan 120 mg Tablet] 120 mg PO DAILY 09/24/17 Allergies/Adverse Reactions: codeine [Codeine] Allergy (Verified 10/06/16 17:13) Review of Systems Review of Systems: Please see history of present illness and past medical history as wall. Constitutional: No fever or chills reported. Head : No recent chronic headaches, recent head injury. Eyes: No recent eye pain, diplopia, redness, discharge, acute visual changes. Ears: No recent chronic ear pain, acute hearing loss, ear discharge. Oral cavity: No recent ulcerations, bleeding, oral cavity discomfort. Neck: No recent acute neck pain reported. Hematologic: No recent easy bruising or bleeding or hematologic malignancy reported. Lymphatic: No recent lymphatic malignancy, chronic lymphadenopathy reported yet Cardiovascular system review: See history of present illness. Respiratory system review: No recent chronic cough, hemoptysis, blood clots in the lungs reported. Mild Shortness of breath on exertion Gastrointestinal system review: Present with acute right sided abdominal pain but denies hematemesis, melena, recent change in bowel habits. Genitourinary system review: No recent acute or chronic hematuria, flank pain, UTI etc. reported. Skin system review: Negative for any recent abnormal bruising, no rash, no pruritus reported. Neurologic: No prior history of strokes, mini strokes, seizure disorder. Psychologic: No history of major psychosis or major depression reported. Musculoskeletal: Minor aches and pains reported. No acute joint swelling reported. Endocrine: No recent polyuria, polydipsia, recent heat or cold intolerance. Physical Exam Vital Signs: Temp Pulse Resp BP Pulse Ox 98.3 F 68 18 115/65 98 09/24/17 17:24 09/24/17 18:40 09/24/17 18:40 09/24/17 17:24 09/24/17 18:40 Intake & Output 09/23/17 09/24/17 09/25/17 06:59 06:59 06:59 Intake Total 100 Output Total 175 Balance -75 Exam: GENERAL: well-nourished and in no acute distress. Alert and oriented x3 HEAD: Atraumatic, normocephalic. EYES: Pupils equal round and reactive to light, extraocular movements intact, sclera anicteric, conjunctiva are normal. ENT: TMs normal, nares patent, oropharynx clear without exudates. Moist mucous membranes. No oral ulcerations or bleeding gums noted NECK: supple without lymphadenopathy. Trachea is central. No cervical or axillary lymphadenopathy noted. Carotids are 2+, JVD WNL LUNGS: Respiration seems nonlabored, no significant accessory muscle action noted. Breath sounds clear to auscultation bilaterally and equal noted. No wheezes rales or rhonchi noted. No significant dullness noted on percussion. CHEST: Palpation of the chest wall shows no significant chest wall tenderness. No other significant abnormalities noted. Pacemaker noted on the left side. HEART: [place] [employer], No PSH, 2-3/6 ABHISHEK aortic area, 1/6 [place] systolic murmur mitral area, no rubs, no gallops. ABDOMEN: Right upper quadrant significant tenderness appreciated, normoactive bowel sounds. No guarding, no rebound. No rigidity noted . No masses appreciated. EXTREMITIES: Pedal pulses are 1-2+, no calf tenderness noted. No clubbing or cyanosis.trace to 1+ pedal edema noted NEUROLOGICAL: Focused neurological exam showed no significant neurologic deficit. Normal speech, no focal weakness appreciated. PSYCH: Normal mood, normal affect. Judgment and insight within normal limits. SKIN: No significant ecchymosis, rash, ulcerations or signs of pruritus noted. MUSCULOSKELETAL EXAM: No significant joint swelling noted. Results Laboratory Results: 09/24/17 15:18 CK-MB (CK-2) 1.99 Troponin I 0.109 EKG Comments: Sinus rhythm, no acute ST-T wave changes noted. Occasional atrial pacing spikes noted Impressions: Abdomen/Pelvis CT 09/24/17 06:57 IMPRESSION: 1. 2.2 CM SOLID MASS IN THE LEFT KIDNEY. RECOMMEND FOLLOW-UP WITH ROUTINE OUTPATIENT MRI OF THE ABDOMEN. 2. BILOBED SOFT TISSUE MASS IN THE LEFT ADRENAL GLAND. THIS COULD BE AN ADENOMA ALTHOUGH SOMEWHAT HETEROGENOUS APPEARANCE. THIS ALSO WOULD BE EVALUATED WITH OUTPATIENT MRI OF THE ABDOMEN. 3. NO OTHER SIGNIFICANT OR ACUTE FINDING IN THE ABDOMEN OR PELVIS ON CT SCAN WITH IV CONTRAST. Abdomen Ultrasound 09/24/17 08:51 IMPRESSION: 1. GALLSTONES, THE LARGEST MEASURING 3.3 CM. ADENOMYOMATOSIS OF THE GALLBLADDER WALL. 2. HEPATOMEGALY WITH DIFFUSE FATTY INFILTRATION OF THE LIVER. 3. NO OTHER SIGNIFICANT FINDINGS. Assessment & Plan - Diagnosis (1) Acute cholecystitis Is this a current diagnosis for this admission?: Yes (2) COPD (chronic obstructive pulmonary disease) Qualifiers: COPD type: unspecified COPD Qualified Code(s): J44.9 - Chronic obstructive pulmonary disease, unspecified Is this a current diagnosis for this admission?: Yes (3) Obesity Qualifiers: Obesity type: unspecified obesity type Body mass index: BMI 40.0-44.9 Is this a current diagnosis for this admission?: Yes (4) Cardiac pacemaker in situ Is this a current diagnosis for this admission?: Yes (5) Aortic stenosis Qualifiers: Cardiac valve disease etiology: nonrheumatic Qualified Code(s): I35.0 - Nonrheumatic aortic (valve) stenosis Is this a current diagnosis for this admission?: Yes (6) Mitral regurgitation Qualifiers: Cardiac valve disease etiology: nonrheumatic Qualified Code(s): I34.0 - Nonrheumatic mitral (valve) insufficiency Is this a current diagnosis for this admission?: Yes (7) Elevated troponin I level Is this a current diagnosis for this admission?: Yes - Notes Notes: Agree with stat echo being ordered. I believe, surgery may need to be postponed because of troponin I elevation. Will repeat EKGs. Troponin I elevation could be false but cannot be sure. Will evaluate patient again in the morning. Acute cholecystitis: Patient being managed by surgeon. COPD: Currently stable without any active wheezing. Aortic stenosis: To be evaluated further by an echocardiogram which has been ordered. Echocardiogram about a year ago showed mild to moderate aortic stenosis. Mitral regurgitation: Probably mild. Elevated troponin I: Possibly false-positive elevation but needs enzymes repeated. - Time Time Spent: 30 to 50 Minutes Medications reviewed and adjusted accordingly: Yes
[2017-09-25] MEDS ORDERED: FENTANYL CITRATE INJ/PF 250 MCG/5 ML AMPULE ONE (11:46)
[2017-09-25] MEDS ORDERED: MIDAZOLAM 2 MG/2 ML INJ ONE (11:46)
[2017-09-25] MEDS ORDERED: PROPOFOL INJ 200 MG/20 ML VIAL IV ONE (11:46)
[2017-09-25] MEDS ORDERED: HYDROMORPHONE HCL INJ/PF 2 MG/ML AMPULE ONE (11:47)
--- NOTE | 2017-09-25 11:51 | PDOC PROGRESS REPORT ---
Subjective Progress Note for:: 09/25/17 Subjective:: Pt states that he is waiting for Echo. Nursing states that she has called about Echo which was ordered stat. Reason For Visit: ACUTE CHOLECYSTITIS Physical Exam Vital Signs: Temp Pulse Resp BP Pulse Ox 98.7 F 63 19 128/84 H 99 09/25/17 08:49 09/25/17 08:49 09/25/17 08:49 09/25/17 08:49 09/25/17 08:49 Intake & Output 09/24/17 09/25/17 09/26/17 06:59 06:59 06:59 Intake Total 1098 Output Total 475 Balance 623 Weight 126.5 kg General appearance: PRESENT: no acute distress, well-developed, well-nourished Head exam: PRESENT: atraumatic, normocephalic Eye exam: PRESENT: conjunctiva pink, EOMI. ABSENT: scleral icterus Ear exam: PRESENT: normal external ear exam Mouth exam: PRESENT: moist, tongue midline Neck exam: ABSENT: carotid bruit, JVD, lymphadenopathy, thyromegaly Respiratory exam: PRESENT: clear to auscultation gregorio. ABSENT: rales, rhonchi, wheezes Cardiovascular exam: PRESENT: RRR, systolic murmur. ABSENT: diastolic murmur, rubs Pulses: PRESENT: normal dorsalis pedis pul Vascular exam: PRESENT: normal capillary refill GI/Abdominal exam: PRESENT: normal bowel sounds, tenderness, other - obese Rectal exam: PRESENT: deferred Extremities exam: PRESENT: full ROM. ABSENT: calf tenderness, clubbing, pedal edema Musculoskeletal exam: PRESENT: full ROM Neurological exam: PRESENT: alert, awake, oriented to person, oriented to place , oriented to time, oriented to situation, CN II-XII grossly intact. ABSENT: motor sensory deficit Psychiatric exam: PRESENT: appropriate affect, normal mood. ABSENT: homicidal ideation, suicidal ideation Skin exam: PRESENT: dry, intact, warm. ABSENT: cyanosis, rash Results Laboratory Results: 09/25/17 06:35 09/25/17 06:55 09/25/17 09/25/17 06:35 06:55 WBC 11.8 H RBC 3.87 L Hgb 11.3 L Hct 33.8 L MCV 87 MCH 29.1 MCHC 33.3 RDW 15.2 H Plt Count 253 Seg Neutrophils % 80.5 H Lymphocytes % 9.0 L Monocytes % 9.8 Eosinophils % 0.3 Basophils % 0.4 Absolute Neutrophils 9.5 H Absolute Lymphocytes 1.1 Absolute Monocytes 1.2 Absolute Eosinophils 0.0 Absolute Basophils 0.0 Sodium 138.7 Potassium 4.2 Chloride 101 Carbon Dioxide 32 H Anion Gap 6 BUN 13 Creatinine 0.72 Est GFR ( Amer) > 60 Est GFR (Non-Af Amer) > 60 Glucose 100 Calcium 9.3 Magnesium 1.9 Total Bilirubin 1.3 AST 110 H ALT 237 H Alkaline Phosphatase 115 Total Protein 5.6 L Albumin 3.0 L Triglycerides 52 Cholesterol 151.48 LDL Cholesterol Direct 96 VLDL Cholesterol 10.0 HDL Cholesterol 56 09/24/17 09/24/17 09/24/17 15:18 20:10 20:10 CK-MB (CK-2) 1.99 2.07 Troponin I 0.109 0.070 09/25/17 01:43 CK-MB (CK-2) 1.90 Troponin I 0.047 Impressions: Abdomen/Pelvis CT 09/24/17 06:57 IMPRESSION: 1. 2.2 CM SOLID MASS IN THE LEFT KIDNEY. RECOMMEND FOLLOW-UP WITH ROUTINE OUTPATIENT MRI OF THE ABDOMEN. 2. BILOBED SOFT TISSUE MASS IN THE LEFT ADRENAL GLAND. THIS COULD BE AN ADENOMA ALTHOUGH SOMEWHAT HETEROGENOUS APPEARANCE. THIS ALSO WOULD BE EVALUATED WITH OUTPATIENT MRI OF THE ABDOMEN. 3. NO OTHER SIGNIFICANT OR ACUTE FINDING IN THE ABDOMEN OR PELVIS ON CT SCAN WITH IV CONTRAST. Abdomen Ultrasound 09/24/17 08:51 IMPRESSION: 1. GALLSTONES, THE LARGEST MEASURING 3.3 CM. ADENOMYOMATOSIS OF THE GALLBLADDER WALL. 2. HEPATOMEGALY WITH DIFFUSE FATTY INFILTRATION OF THE LIVER. 3. NO OTHER SIGNIFICANT FINDINGS. Assessment & Plan - Diagnosis (1) SIRS (systemic inflammatory response syndrome) Is this a current diagnosis for this admission?: Yes Plan: Secondary to Acute Cholecystitis: Will continue Zosyn. Awaiting 2 D Echo. Anesthesia awaiting results of 2D echo. Spoke with cardiology. (2) Right upper quadrant abdominal pain Is this a current diagnosis for this admission?: Yes Plan: In setting of acute cholecystitis: will place patient on Zosyn. (3) Elevated LFTs Is this a current diagnosis for this admission?: Yes Plan: In setting of acute cholecystitis with suspicion of gallstone involvement: Patient to be evaluated by surgery. LFTs trending downward. (4) COPD (chronic obstructive pulmonary disease) Qualifiers: COPD type: unspecified COPD Qualified Code(s): J44.9 - Chronic obstructive pulmonary disease, unspecified Is this a current diagnosis for this admission?: No Plan: PRN [place] (5) Hypertension Qualifiers: Hypertension type: essential hypertension Qualified Code(s): I10 - Essential (primary) hypertension Is this a current diagnosis for this admission?: Yes Plan: Stable. (6) Severe obesity (BMI 35.0-39.9) Is this a current diagnosis for this admission?: Yes Plan: Encourage dietary changes. (7) Ventricular arrhythmia Is this a current diagnosis for this admission?: Yes Plan: Xarelto held due to pt needing surgery. Last dose of Xarelto was no 09/23/17. (8) Diastolic congestive heart failure Qualifiers: Heart failure chronicity: chronic Qualified Code(s): I50.32 - Chronic diastolic (congestive) heart failure Is this a current diagnosis for this admission?: Yes Plan: Placed on IV fluids at 50 cc/h. Will monitor patient for volume overload. (9) Aortic stenosis Qualifiers: Cardiac valve disease etiology: nonrheumatic Qualified Code(s): I35.0 - Nonrheumatic aortic (valve) stenosis Is this a current diagnosis for this admission?: Yes Plan: Supportive care. 2 D Echo (10) DVT prophylaxis Is this a current diagnosis for this admission?: Yes - Time Time Spent with patient: 15-24 minutes
[2017-09-25] MEDS ORDERED: MORPHINE SULFATE 10 MG/ML INJ IV PRN (11:52)
[2017-09-25] MEDS ORDERED: FENTANYL CITRATE INJ/PF 100 MCG/2 ML AMPUL IV PRN ×3 (11:52)
[2017-09-25] MEDS ORDERED: OXYCODONE-ACETAMINOPHEN 5-325 MG TABLET PO PRN (11:52)
[2017-09-25] MEDS ORDERED: DIPHENHYDRAMINE HCL 50 MG/ML VIAL IV PRN (11:52)
[2017-09-25] MEDS ORDERED: MEPERIDINE HCL/PF INJ 25 MG/1 ML DISP.SYRIN IV PRN (11:52)
[2017-09-25] MEDS ORDERED: PROMETHAZINE HCL INJ 25 MG/1 ML VIAL IV PRN (11:52)
[2017-09-25] MEDS: BUPIVACAINE HCL 0.25 % INJ/PF (2.5 MG/1 ML) 30 ML VIAL ONE ×2 (11:54→12:34)
--- NOTE | 2017-09-25 12:02 | PDOC PROGRESS REPORT ---
Subjective Progress Note for:: 09/25/17 Subjective:: Patient's troponin I came back elevated in the indeterminate range but has subsequently trended down. Patient denied having any chest pain recently. Feel that troponin I elevation is related to systemic inflammatory response syndrome rather than acute coronary syndrome. Multiple EKGs were done and no EKG changes were noted. Rhythm strips reviewed showed no sustained tachycardia or bradycardia arrhythmias. Patient seems to be doing better with gradual improvement. Still has some right upper quadrant pain. He is waiting for surgery. Pt is denying any chest arm or neck discomfort. Patient denying any PND, orthopnea. Patient denied any sustained palpitations, dizziness, syncope, near syncope. Patient denying any fever chills. Patient denying any other significant discomfort. Patient is atrial paced rhythm with occasional ventricular paced beats.. Review of systems: Rest review of systems negative. Medications: Medications have been reviewed. Reason For Visit: ACUTE CHOLECYSTITIS Physical Exam Vital Signs: Temp Pulse Resp BP Pulse Ox 98.7 F 63 19 128/84 H 99 09/25/17 08:49 09/25/17 08:49 09/25/17 08:49 09/25/17 08:49 09/25/17 08:49 Intake & Output 09/24/17 09/25/17 09/26/17 06:59 06:59 06:59 Intake Total 1098 Output Total 475 Balance 623 Weight 126.5 kg Exam: GENERAL: well-nourished and in no acute distress. Alert and oriented x3 HEAD: Atraumatic, normocephalic. EYES: Pupils equal round and reactive to light, extraocular movements intact, sclera anicteric, conjunctiva are normal. ENT: TMs normal, nares patent, oropharynx clear without exudates. Moist mucous membranes. No oral ulcerations or bleeding gums noted NECK: supple without lymphadenopathy. Trachea is central. No cervical or axillary lymphadenopathy noted. Carotids are 2+, JVD WNL LUNGS: Respiration seems nonlabored, no significant accessory muscle action noted. Breath sounds clear to auscultation bilaterally and equal noted. No wheezes rales or rhonchi noted. No significant dullness noted on percussion. CHEST: Palpation of the chest wall shows no significant chest wall tenderness. No other significant abnormalities noted. 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 ABDOMEN: S right upper quadrant significant tenderness appreciated, normoactive bowel sounds. No guarding, no rebound. No rigidity noted . No masses appreciated. EXTREMITIES: Pedal pulses are 1-2+, no calf tenderness noted. No clubbing or cyanosis.trace to 1+ pedal edema noted NEUROLOGICAL: Focused neurological exam showed no significant neurologic deficit. Normal speech, no focal weakness appreciated. PSYCH: Normal mood, normal affect. Judgment and insight within normal limits. SKIN: No significant ecchymosis, rash, ulcerations or signs of pruritus noted. MUSCULOSKELETAL EXAM: No significant joint swelling noted. Results Laboratory Results: 09/25/17 06:35 09/25/17 06:55 09/25/17 09/25/17 06:35 06:55 WBC 11.8 H RBC 3.87 L Hgb 11.3 L Hct 33.8 L MCV 87 MCH 29.1 MCHC 33.3 RDW 15.2 H Plt Count 253 Seg Neutrophils % 80.5 H Lymphocytes % 9.0 L Monocytes % 9.8 Eosinophils % 0.3 Basophils % 0.4 Absolute Neutrophils 9.5 H Absolute Lymphocytes 1.1 Absolute Monocytes 1.2 Absolute Eosinophils 0.0 Absolute Basophils 0.0 Sodium 138.7 Potassium 4.2 Chloride 101 Carbon Dioxide 32 H Anion Gap 6 BUN 13 Creatinine 0.72 Est GFR ( Amer) > 60 Est GFR (Non-Af Amer) > 60 Glucose 100 Calcium 9.3 Magnesium 1.9 Total Bilirubin 1.3 AST 110 H ALT 237 H Alkaline Phosphatase 115 Total Protein 5.6 L Albumin 3.0 L Triglycerides 52 Cholesterol 151.48 LDL Cholesterol Direct 96 VLDL Cholesterol 10.0 HDL Cholesterol 56 09/24/17 09/24/17 09/24/17 15:18 20:10 20:10 CK-MB (CK-2) 1.99 2.07 Troponin I 0.109 0.070 09/25/17 01:43 CK-MB (CK-2) 1.90 Troponin I 0.047 EKG Comments: Multiple available twelve-lead EKG is reviewed. None of them showing any acute ST-T wave changes. Telemetry strips reviewed shows atrial paced rhythm and occasional ventricular paced rhythm and VPCs. Impressions: Abdomen/Pelvis CT 09/24/17 06:57 IMPRESSION: 1. 2.2 CM SOLID MASS IN THE LEFT KIDNEY. RECOMMEND FOLLOW-UP WITH ROUTINE OUTPATIENT MRI OF THE ABDOMEN. 2. BILOBED SOFT TISSUE MASS IN THE LEFT ADRENAL GLAND. THIS COULD BE AN ADENOMA ALTHOUGH SOMEWHAT HETEROGENOUS APPEARANCE. THIS ALSO WOULD BE EVALUATED WITH OUTPATIENT MRI OF THE ABDOMEN. 3. NO OTHER SIGNIFICANT OR ACUTE FINDING IN THE ABDOMEN OR PELVIS ON CT SCAN WITH IV CONTRAST. Abdomen Ultrasound 09/24/17 08:51 IMPRESSION: 1. GALLSTONES, THE LARGEST MEASURING 3.3 CM. ADENOMYOMATOSIS OF THE GALLBLADDER WALL. 2. HEPATOMEGALY WITH DIFFUSE FATTY INFILTRATION OF THE LIVER. 3. NO OTHER SIGNIFICANT FINDINGS. Assessment & Plan - Diagnosis (1) Acute cholecystitis Is this a current diagnosis for this admission?: Yes (2) COPD (chronic obstructive pulmonary disease) Qualifiers: COPD type: unspecified COPD Qualified Code(s): J44.9 - Chronic obstructive pulmonary disease, unspecified Is this a current diagnosis for this admission?: Yes (3) Obesity Qualifiers: Obesity type: unspecified obesity type Body mass index: BMI 40.0-44.9 Is this a current diagnosis for this admission?: Yes (4) Cardiac pacemaker in situ Is this a current diagnosis for this admission?: Yes (5) Aortic stenosis Qualifiers: Cardiac valve disease etiology: nonrheumatic Qualified Code(s): I35.0 - Nonrheumatic aortic (valve) stenosis Is this a current diagnosis for this admission?: Yes (6) Mitral regurgitation Qualifiers: Cardiac valve disease etiology: nonrheumatic Qualified Code(s): I34.0 - Nonrheumatic mitral (valve) insufficiency Is this a current diagnosis for this admission?: Yes (7) Elevated troponin I level Is this a current diagnosis for this admission?: Yes - Notes Notes: Troponin I elevation: [place] not related to acute coronary syndrome. Patient's troponin I came back elevated in the indeterminate range but has subsequently trended down. Patient denied having any chest pain recently. Feel that troponin I elevation is related to systemic inflammatory response syndrome rather than acute coronary syndrome. Multiple EKGs were done and no EKG changes were noted. Rhythm strips reviewed showed no sustained tachycardia or bradycardia arrhythmias. Preop cardiovascular examination: Patient cleared for proposed surgery. Do not feel anything acute cardiac ewing going on. Patient's previous cardiac evaluations were reviewed. This included previous echocardiogram, previous nuclear stress test. Previous nuclear stress test approximately a year ago was noted to be negative. A 2D echocardiogram was repeated which shows mild aortic stenosis with valve area of 1.7 on the gradient suggest that it may be mild to moderate. No definite wall motion abnormalities were noted on the echo was technically difficult quality. No other significant stenotic or regurgitant lesions noted. Patient was therefore cleared to proceed with surgery with average risk for his age. Patient will benefit from a repeat EKG postoperatively and tomorrow. COPD: Currently stable without any ongoing wheezing. Aortic stenosis: Stable. No significant progression from last time. Mitral regurgitation: Stable Elevated troponin I: Please see discussion above. Acute cholecystitis: Patient to go for surgery. - Time Time with patient: Greater than 35 minutes - CODE STATUS was discussed, patient remains full code. Surrogate decision-maker patient's son. Multiple medical problems were addressed. More than 50% of the time spent coordinating care, discussing management plans with involved caregivers. Management plans discussed with involved personnels. Medical decision making was of moderate to high complexity, patient's has multiple comorbidities. Medications reviewed and adjusted accordingly: Yes
[2017-09-25] MEDS ORDERED: OXYCODONE-ACETAMINOPHEN 5-325 MG TABLET ONE (13:36)
[2017-09-25] MEDS ORDERED: HYDROMORPHONE HCL INJ/PF 2 MG/ML AMPULE IV PRN (13:59)
[2017-09-25] MEDS ORDERED: HYDROCODONE/ACETAMINOPHEN 5-325 MG TABLET PO PRN (14:00)
--- NOTE | 2017-09-25 15:43 | OPERATIVE REPORT E ---
Operative Report NAME: STONE GROVE : 1945 AGE: 72Y DATE OF SURGERY: 09/25/2017 ROOM: 402 PREOPERATIVE DIAGNOSIS: ACUTE CHOLECYSTITIS. POSTOPERATIVE DIAGNOSIS: ACUTE CHOLECYSTITIS. OPERATION: Laparoscopic cholecystectomy. SURGEON: JAIME SIMMS M.D. ANESTHESIA: General. ESTIMATED BLOOD LOSS: 10 mL. SPECIMEN: Gallbladder and contents. HISTORY/INDICATIONS: Acute cholecystitis. Patient came in with acute abdominal pain, elevated AST, ALT, indicators for gallbladder. A large 3-cm stone compressing on the liver, prehepatic edema. Needs to have a cholecystectomy done. Explained about indications, risks, benefits and complications of operation, including but not limited to infection, bleeding, pain, possible leak. He was taken to the operating room with informed consent. PROCEDURE: Under general anesthesia, in supine position, with SCD boots, patient's antibiotic was continued, Zosyn. Abdomen was cleaned and draped in sterile field. Initial access in supraumbilical area, 1-cm incision was made, and then a 12-mm trocar inserted. Then under direct laparoscopic visualization, the 5-mm trocar inserted in the epigastric area. Another 5-mm trocar in the. Another 5-mm on the right side Impression and findings: Gallbladder acutely inflamed, distended. There was a large stone impacting the neck of the gallbladder, which was about 3 to 3.5 cm size. Initially, gallbladder was decompressed by extracting the contents, and then gallbladder was dissected through gallbladder neck. Cystic artery was clearly dissected out, divided between clips and Harmonic scalpel. Now the cystic duct was clearly dissected all around using the Harmonic scalpel. Then gallbladder was dissected down from fundus all the way to the cystic duct area. Now the cystic duct was securely ligated with a 0 PDS and clips were applied, and it was divided close to the gallbladder neck. It was retrieved through Endo Catch bag. Abdominal cavity, peritoneum and subhepatic copiously irrigated and suctioned out, completely hemostatic. All the trocars removed and all the pneumoperitoneum was evacuated, then closed with 0 Vicryl for the fascia in 2 layers and 3-0 and 4-0 Monocryl for the skin. Patient tolerated procedure well and was taken to the recovery room in stable condition. DICTATING PHYSICIAN: JAIME SIMMS M.D. [id number] PHY#: [id number] ID: [id number] JOB#: [id number] ACCT: [id number] cc:JAIME SIMMS M.D. > MTDD
[2017-09-25 16:35] LABS: FREE T4 (FREE THYROXINE) 1.28 ng/dL (0.78-2.19)
[2017-09-25 16:49] LABS: THYROID STIMULATING HORMONE 1.09 uIU/mL (0.47-4.68)
--- NOTE | 2017-09-25 18:58 | XCELERA REPORT ---
[address] [address] Transthoracic Echocardiogram Report Name: STONE GROVE JR Age: 72 yrs Gender: Male : 1945 Patient Status: Inpatient Patient Location: [address] [place] [address] Study Date: 09/25/2017 11:23 AM Height: 70 in Weight: 279 lb BSA: 2.4 m2 Procedure: A complete two-dimensional transthoracic echocardiogram was performed (2D, M-mode, spectral and color flow Doppler). The study was technically difficult with many images being suboptimal in quality. Reason For Study: Elevated troponin. Ordering Physician: EMILY CHAMBERLAIN Performed By: Darby Min Interpretation Summary The study was technically difficult with many images being suboptimal in quality. The left ventricular ejection fraction is normal. There is mild concentric left ventricular hypertrophy. The left ventricle is grossly normal size. Doppler measurements suggest pseudonormalized left ventricular relaxation, which is associated with grade II/IV or mild to moderate diastolic dysfunction Wall motion cannot be accurately commented on, but no definite regional wall motion abnormalities noted. Right ventricular function cannot be assessed due to poor image quality. The right atrium is normal. The left atrial size is normal. There is a trace amount of mitral regurgitation There is no mitral valve stenosis. There is mild to moderate aortic stenosis There is a peak gradient of 45, mean 25 mm of Hg. No aortic regurgitation is present. No tricuspid regurgitation. There is no tricuspid stenosis. There is no pericardial effusion. MMode/2D Measurements & Calculations RVDd: 3.5 cm LVIDd: 4.5 cmFS: 36.2 % Ao root diam: 3.8 cm IVSd: 1.4 cm LVIDs: 2.8 cmEDV(Teich): 90.6 ml LVPWd: 1.3 cmESV(Teich): 30.8 ml Ao root area: 11.3 cm2 EF(Teich): 66.0 % LA dimension: 3.6 cm LVOT diam: 2.5 cm LVOT area: 4.9 cm2 Doppler Measurements & Calculations MV E max olesya: MV P1/2t max olesya: Ao V2 max: LV V1 max P.4 cm/sec 87.9 cm/sec 335.4 cm/sec 6.4 mmHg MV A max olesya: MV P1/2t: 97.1 msec Ao max PG: LV V1 mean P.0 cm/sec MVA(P1/2t): 2.3 cm2 45.0 mmHg 2.7 mmHg MV E/A: 0.74 MV dec slope: Ao V2 mean: LV V1 max: 265.0 cm/sec2 241.5 cm/sec 126.9 cm/sec Ao mean PG: LV V1 mean: 26.1 mmHg 73.8 cm/sec Ao V2 VTI: LV V1 VTI: 75.7 cm 26.5 cm NATASHA(I,D): 1.7 cm2 NATASHA(V,D): 1.8 cm2 SV(LVOT): 128.6 ml PA V2 max: 90.8 cm/sec PA max P.3 mmHg Left Ventricle The left ventricle is grossly normal size. There is mild concentric left ventricular hypertrophy. The left ventricular ejection fraction is normal. Doppler measurements suggest pseudonormalized left ventricular relaxation, which is associated with grade II/IV or mild to moderate diastolic dysfunction. Wall motion cannot be accurately commented on, but no definite regional wall motion abnormalities noted. Right Ventricle The right ventricle is not well visualized secondary to technical limitations. Right ventricular function cannot be assessed due to poor image quality. Atria The right atrium is normal. The left atrial size is normal. Interarterial septum not well visualized and not well dopplered. Cannot comment on ASD/PFO presence. Mitral Valve There is mild mitral leaflet calcification. There is mild mitral annular calcification. There is no mitral valve stenosis. There is a trace amount of mitral regurgitation. Aortic Valve The aortic valve is moderately calcified. There is mild to moderate aortic stenosis. There is a peak gradient of 45, mean 25 mm of Hg. No aortic regurgitation is present. Tricuspid Valve The tricuspid valve is not well visualized secondary to technical limitations. There is no tricuspid stenosis. No tricuspid regurgitation. Pulmonic Valve The pulmonic valve is not well visualized. Great Vessels The aortic root is not well visualized. The inferior vena cava appeared normal and decreased > 50% with respiration (RAP 5-10 mmHg). Effusions There is no pericardial effusion. : EMILY CHAMBERLAIN Shyamal
--- NOTE | 2017-09-25 23:54 | EKG REPORT ---
SEVERITY:- ABNORMAL ECG - SINUS RHYTHM FIRST DEGREE AV BLOCK BORDERLINE INFERIOR Q WAVES : Confirmed by: Mal Machado 25-Sep-2017 23:53:52
[2017-09-26] MEDS: PIPERACILLIN SODIUM/TAZOBACTAM 3.375 GM in NORMAL SALINE 100 ML IV SCH ×3 (00:18→11:37)
[2017-09-26 09:18] LABS: ABSOLUTE MONOCYTES (AUTO) 1.2 10^3/uL (0.1-1.4); ABSOLUTE NEUT (AUTO) 12.6 10^3/uL (1.7-8.2); BASOPHILS % (AUTO) 0.3 % (0-2); HEMATOCRIT 34.9 % (37.9-51.0); HEMOGLOBIN 11.7 g/dL (13.5-17.0); LYMPHOCYTES % (AUTO) 7.1 % (13-45); MEAN CORPUSCULAR HEMOGLOBIN 29.2 pg (27.0-33.4); MEAN CORPUSCULAR HGB CONC 33.5 g/dL (32.0-36.0); MEAN CORPUSCULAR VOLUME 87 fl (80-97); MONOCYTES % (AUTO) 7.9 % (3-13); PLATELET COUNT 267 10^3/uL (150-450); SEGMENTED NEUTROPHILS % (AUTO) 84.7 % (42-78); TOTAL CELLS COUNTED % (AUTO) 100 %; WHITE BLOOD COUNT 14.8 10^3/uL (4.0-10.5)
[2017-09-26] MEDS ORDERED: LIDOCAINE 2% INJ-PF (20 MG/ML) 2 ML AMPUL ONE (10:01)
[2017-09-26] MEDS ORDERED: GLYCOPYRROLATE INJ 0.4 MG/2 ML VIAL ONE (10:01)
[2017-09-26] MEDS ORDERED: ONDANSETRON HCL INJ/PF 4 MG/2 ML SDV ONE (10:01)
[2017-09-26] MEDS ORDERED: DEXAMETHASONE SOD PHOSPHATE INJ 4 MG/1 ML VIAL ONE (10:01)
[2017-09-26] MEDS ORDERED: SUCCINYLCHOLINE CHLORIDE INJ 200 MG/10 ML VIAL ONE (10:01)
[2017-09-26] MEDS ORDERED: KETOROLAC TROMETHAMINE 60 MG/2 ML SDV ONE (10:01)
[2017-09-26] MEDS ORDERED: NEOSTIGMINE METHYLSULFATE 10 MG/10 ML VIAL ONE (10:01)
[2017-09-26] MEDS ORDERED: ROCURONIUM BROMIDE INJ 50 MG/5 ML VIAL IV ONE (10:01)
[2017-09-26] MEDS: PANTOPRAZOLE SODIUM 40 MG VIAL IV SCH (10:21)
--- NOTE | 2017-09-26 11:18 | PDOC DISCHARGE SUMMARY ---
General - Admit/Disc Date/PCP Admission Date/Primary Care Provider: 09/24/17 12:31 Discharge Date: 09/26/17 - Discharge Diagnosis (1) SIRS (systemic inflammatory response syndrome) Is this a current diagnosis for this admission?: Yes Summary: In setting of acute cholecystitis status post cholecystectomy: Patient was placed on Zosyn. At time of discharge no source of infection was identified. (2) Right upper quadrant abdominal pain Is this a current diagnosis for this admission?: Yes Summary: Compared to acute cystitis: Status post cholecystectomy. Surgery has given their approval for patient to be discharged. Patient will need follow-up with surgery in 1-2 weeks. (3) Elevated LFTs Is this a current diagnosis for this admission?: Yes Summary: In setting of cholecystitis with possible gallstone. Patient's liver enzymes have trended down which would suggest that patient could have possibly passed a gallstone. (4) COPD (chronic obstructive pulmonary disease) Is this a current diagnosis for this admission?: No Summary: Stable (5) Hypertension Is this a current diagnosis for this admission?: Yes Summary: continue home medication (6) Severe obesity (BMI 35.0-39.9) Is this a current diagnosis for this admission?: Yes Summary: Encourage dietary change. (7) Ventricular arrhythmia Is this a current diagnosis for this admission?: Yes Summary: Patient is able to restart Eliquis after 24 hours from time of surgery per surgeon. (8) Diastolic congestive heart failure Is this a current diagnosis for this admission?: Yes Summary: euvolemic (9) Aortic stenosis Is this a current diagnosis for this admission?: Yes Summary: Supportive care. - Additional Information Resuscitation Status: Full Code Discharge Diet: Cardiac Discharge Activity: Activity As Tolerated Prescriptions: Oxycodone HCl/Acetaminophen [Percocet 5-325 mg Tablet] 1 tab PO Q4HP PRN #12 tablet PRN Reason: Home Medications: Aspirin [Aspirin 81 mg Chewable Tablet] 81 mg PO DAILY 09/24/17 Fluticasone/Salmeterol [Advair 250-50 Diskus 14 Dose/Diskus] 1 puff IH Q12 09/24 Furosemide [Lasix 40 mg Tablet] 40 mg PO DAILY 09/24/17 Multivitamin [Multivitamins] 1 cap PO DAILY 09/24/17 Spironolactone [Aldactone 25 mg Tablet] 25 mg PO DAILY 09/24/17 Tamsulosin HCl [Flomax 0.4 mg Cap.sr] 0.4 mg PO DAILY 09/24/17 Verapamil HCl [Calan 120 mg Tablet] 120 mg PO DAILY 09/24/17 Oxycodone HCl/Acetaminophen [Percocet 5-325 mg Tablet] 1 tab PO Q4HP PRN #12 tablet 09/26/17 Rivaroxaban [Xarelto] 20 mg PO 09/26/17 History of Present Illness Patient complains of: abd pain History of Present Illness: STONE GROVE JR is a 72 year old male Hospital Course Hospital Course: Patient was admitted to the hospital for acute cholecystitis. Due to patient's lab findings thought is that patient most likely passed gallstone. Patient was seen by surgery who recommended removal of the gallbladder. Patient underwent procedure and has done well. Patient was noted to have equivocal troponins and therefore 2D echo was ordered and anesthesiology felt that it was safe to proceed with surgery. Patient has done well in surgery has given the okay for patient to be discharged home. Physical Exam Vital Signs: Temp Pulse Resp BP Pulse Ox 98.0 F 60 18 151/77 H 94 09/26/17 00:11 09/26/17 02:00 09/26/17 00:11 09/26/17 00:11 09/26/17 00:11 Intake & Output 09/25/17 09/26/17 09/27/17 06:59 06:59 06:59 Intake Total 1098 2003 952 Output Total 475 905 Balance 623 1098 952 Weight 126.5 kg 126.5 kg General appearance: PRESENT: no acute distress, well-developed, well-nourished Head exam: PRESENT: atraumatic, normocephalic Eye exam: PRESENT: conjunctiva pink, EOMI. ABSENT: scleral icterus Ear exam: PRESENT: normal external ear exam Mouth exam: PRESENT: moist, tongue midline Neck exam: ABSENT: carotid bruit, JVD, lymphadenopathy, thyromegaly Respiratory exam: PRESENT: clear to auscultation gregorio. ABSENT: rales, rhonchi, wheezes Cardiovascular exam: PRESENT: RRR. ABSENT: diastolic murmur, rubs, systolic murmur Pulses: PRESENT: normal dorsalis pedis pul Vascular exam: PRESENT: normal capillary refill GI/Abdominal exam: PRESENT: tenderness - at incision sites Rectal exam: PRESENT: deferred Extremities exam: PRESENT: full ROM. ABSENT: calf tenderness, clubbing, pedal edema Neurological exam: PRESENT: alert, awake, oriented to person, oriented to place , oriented to time, oriented to situation, CN II-XII grossly intact. ABSENT: motor sensory deficit Psychiatric exam: PRESENT: appropriate affect, normal mood. ABSENT: homicidal ideation, suicidal ideation Skin exam: PRESENT: dry, intact, warm, other - incision sites demonstrate no evidence of infection.. ABSENT: cyanosis, rash Results Laboratory Results: 09/26/17 08:55 09/25/17 06:55 09/25/17 09/26/17 06:55 08:55 WBC 14.8 H RBC 4.00 L Hgb 11.7 L Hct 34.9 L MCV 87 MCH 29.2 MCHC 33.5 RDW 15.0 H Plt Count 267 Seg Neutrophils % 84.7 H Lymphocytes % 7.1 L Monocytes % 7.9 Eosinophils % 0.0 Basophils % 0.3 Absolute Neutrophils 12.6 H Absolute Lymphocytes 1.0 Absolute Monocytes 1.2 Absolute Eosinophils 0.0 Absolute Basophils 0.0 TSH 1.09 Free T4 1.28 09/24/17 09/24/17 09/24/17 15:18 20:10 20:10 CK-MB (CK-2) 1.99 2.07 Troponin I 0.109 0.070 09/25/17 01:43 CK-MB (CK-2) 1.90 Troponin I 0.047 Impressions: Abdomen/Pelvis CT 09/24/17 06:57 IMPRESSION: 1. 2.2 CM SOLID MASS IN THE LEFT KIDNEY. RECOMMEND FOLLOW-UP WITH ROUTINE OUTPATIENT MRI OF THE ABDOMEN. 2. BILOBED SOFT TISSUE MASS IN THE LEFT ADRENAL GLAND. THIS COULD BE AN ADENOMA ALTHOUGH SOMEWHAT HETEROGENOUS APPEARANCE. THIS ALSO WOULD BE EVALUATED WITH OUTPATIENT MRI OF THE ABDOMEN. 3. NO OTHER SIGNIFICANT OR ACUTE FINDING IN THE ABDOMEN OR PELVIS ON CT SCAN WITH IV CONTRAST. Abdomen Ultrasound 09/24/17 08:51 IMPRESSION: 1. GALLSTONES, THE LARGEST MEASURING 3.3 CM. ADENOMYOMATOSIS OF THE GALLBLADDER WALL. 2. HEPATOMEGALY WITH DIFFUSE FATTY INFILTRATION OF THE LIVER. 3. NO OTHER SIGNIFICANT FINDINGS. Plan Time Spent: Less than 30 Minutes
[2017-09-26 12:20] VITALS: BP 126/64
[2017-09-26 12:38] LABS: HEPATITIS A AB IGM Negative (Negative); HEPATITIS B CORE AB IGM Negative (Negative); HEPATITS B SURFACE ANTIGEN Negative (Negative)
[2017-09-26 13:04] LABS: HEPATITIS C VIRUS ANTIBODY <0.1 s/co ratio (0.0-0.9)
--- NOTE | 2017-09-26 16:08 | DISCHARGE SUMMARY E ---
Discharge Summary NAME: STONE GROVE : 1945 AGE: 72Y ADMITTED: 09/24/2017 DISCHARGED: 09/26/2017 The patient is a 72-year-old gentleman came to the hospital for evaluation and management of abdominal pain. HISTORY OF PRESENT ILLNESS: The patient has multiple medical problems, including a history of atrial fibrillation, hyperlipidemia, hypertension, chronic pulmonary disease. He presented to the emergency room with the history of abdominal pain, nausea, mostly upper-abdominal pain. He did have the abdominal pain on and off in the past. Emergency evaluation revealed gallstones, multiple ones with elevated LFTs, AST and ALT levels. His other surgical history includes appendectomy, surgery. He is on multiple medications, including furosemide, , verapamil. examination. PHYSICAL EXAMINATION: He was awake, alert, oriented. Head and neck examination: No lymphadenopathy, no masses. Respiratory examination: Both lungs are clear to auscultation. Cardiovascular Exam: No murmurs or gallops. Abdomen Examination: . He does have tenderness in the right upper quadrant area. No palpable masses. No hernia. Extremities are warm and well perfused. DIAGNOSTIC STUDIES: His CT scan revealed 2.2 cm. solid mass left kidney. He will be following with urology for that as per emergency room or hospitalist plan. left side. at this point gallstones, multiple, with thickened gallbladder. IMPRESSION: Overall, acute cholecystitis with a white count of 17,000. PLAN: Admit him to hospitalist service recommendation. tomorrow. DICTATING PHYSICIAN: JAIME SIMMS M.D. [id number] PHY#: [id number] ID: [id number] JOB#: [id number] ACCT: [id number] cc:JAIME SIMMS M.D., ANTON M.D. >
--- NOTE | 2017-09-26 20:10 | PDOC PROGRESS REPORT ---
Subjective Progress Note for:: 09/26/17 Subjective:: doing well post laparoscopic cholecystectomy No pain no nausea or vomiting. Reason For Visit: ACUTE CHOLECYSTITIS Physical Exam Vital Signs: Temp Pulse Resp BP Pulse Ox 98.0 F 60 18 128/84 H 94 09/26/17 11:18 09/26/17 11:18 09/26/17 11:18 09/26/17 11:18 09/26/17 11:18 Intake & Output 09/25/17 09/26/17 09/27/17 06:59 06:59 06:59 Intake Total 1098 2003 952 Output Total 475 905 Balance 623 1098 952 Weight 126.5 kg 126.5 kg General appearance: PRESENT: no acute distress, well-developed, well-nourished Head exam: PRESENT: atraumatic, normocephalic Eye exam: PRESENT: conjunctiva pink, EOMI, PERRLA. ABSENT: scleral icterus Neck exam: ABSENT: carotid bruit, JVD, lymphadenopathy, thyromegaly Respiratory exam: PRESENT: clear to auscultation gregorio. ABSENT: rales, rhonchi, wheezes Cardiovascular exam: PRESENT: +S1, +S2 GI/Abdominal exam: PRESENT: normal bowel sounds, soft, other - incisions are clean, dry, intact Neurological exam: PRESENT: alert, awake, oriented to person, oriented to place , oriented to time, oriented to situation, CN II-XII grossly intact. ABSENT: motor sensory deficit Results Laboratory Results: 09/26/17 08:55 09/25/17 06:55 09/26/17 08:55 WBC 14.8 H RBC 4.00 L Hgb 11.7 L Hct 34.9 L MCV 87 MCH 29.2 MCHC 33.5 RDW 15.0 H Plt Count 267 Seg Neutrophils % 84.7 H Lymphocytes % 7.1 L Monocytes % 7.9 Eosinophils % 0.0 Basophils % 0.3 Absolute Neutrophils 12.6 H Absolute Lymphocytes 1.0 Absolute Monocytes 1.2 Absolute Eosinophils 0.0 Absolute Basophils 0.0 09/24/17 09/24/17 09/24/17 15:18 20:10 20:10 CK-MB (CK-2) 1.99 2.07 Troponin I 0.109 0.070 09/25/17 01:43 CK-MB (CK-2) 1.90 Troponin I 0.047 Impressions: Abdomen/Pelvis CT 09/24/17 06:57 IMPRESSION: 1. 2.2 CM SOLID MASS IN THE LEFT KIDNEY. RECOMMEND FOLLOW-UP WITH ROUTINE OUTPATIENT MRI OF THE ABDOMEN. 2. BILOBED SOFT TISSUE MASS IN THE LEFT ADRENAL GLAND. THIS COULD BE AN ADENOMA ALTHOUGH SOMEWHAT HETEROGENOUS APPEARANCE. THIS ALSO WOULD BE EVALUATED WITH OUTPATIENT MRI OF THE ABDOMEN. 3. NO OTHER SIGNIFICANT OR ACUTE FINDING IN THE ABDOMEN OR PELVIS ON CT SCAN WITH IV CONTRAST. Abdomen Ultrasound 09/24/17 08:51 IMPRESSION: 1. GALLSTONES, THE LARGEST MEASURING 3.3 CM. ADENOMYOMATOSIS OF THE GALLBLADDER WALL. 2. HEPATOMEGALY WITH DIFFUSE FATTY INFILTRATION OF THE LIVER. 3. NO OTHER SIGNIFICANT FINDINGS. Assessment & Plan - Diagnosis (1) Acute cholecystitis Is this a current diagnosis for this admission?: Yes - Plan Summary Plan Summary: patient can be discharged home from surgical standpoint. F[facility]u [facility] x 1 week.
--- NOTE | 2017-10-01 18:50 | PDOC PROGRESS REPORT ---
Subjective Progress Note for:: 09/26/17 Subjective:: Postop day 1 feeling fine. Patient was seen on morning rounds. Pt is denying any chest arm or neck discomfort. Patient denying any PND, orthopnea. Patient denied any sustained palpitations, dizziness, syncope, near syncope. Patient denying any fever chills. Patient denying any other significant discomfort. Patient is atrial paced rhythm with occasional ventricular paced beats.. Review of systems: Rest review of systems negative. Medications: Medications have been reviewed. Reason For Visit: ACUTE CHOLECYSTITIS Physical Exam Vital Signs: Temp Pulse Resp BP Pulse Ox 98.0 F 60 18 128/84 H 94 09/26/17 11:18 09/26/17 11:18 09/26/17 11:18 09/26/17 11:18 09/26/17 11:18 Intake & Output 09/25/17 09/26/17 09/27/17 06:59 06:59 06:59 Intake Total 1098 2003 952 Output Total 475 905 Balance 623 1098 952 Weight 126.5 kg 126.5 kg Exam: GENERAL: well-nourished and in no acute distress. Alert and oriented x3 HEAD: Atraumatic, normocephalic. EYES: Pupils equal round and reactive to light, extraocular movements intact, sclera anicteric, conjunctiva are normal. ENT: TMs normal, nares patent, oropharynx clear without exudates. Moist mucous membranes. No oral ulcerations or bleeding gums noted NECK: supple without lymphadenopathy. Trachea is central. No cervical or axillary lymphadenopathy noted. Carotids are 2+, JVD WNL LUNGS: Respiration seems nonlabored, no significant accessory muscle action noted. Breath sounds clear to auscultation bilaterally and equal noted. No wheezes rales or rhonchi noted. No significant dullness noted on percussion. CHEST: Palpation of the chest wall shows no significant chest wall tenderness. No other significant abnormalities noted. HEART: [place] [employer], No PSH, 1/6 [place] aortic area, 1/6 [place] systolic murmur mitral area, no rubs, no gallops. ABDOMEN: Mild postsurgical right upper quadrant tenderness appreciated, normoactive bowel sounds. No guarding, no rebound. No rigidity noted . No masses appreciated. EXTREMITIES: Pedal pulses are 1-2+, no calf tenderness noted. No clubbing or cyanosis.trace to 1+ pedal edema noted NEUROLOGICAL: Focused neurological exam showed no significant neurologic deficit. Normal speech, no focal weakness appreciated. PSYCH: Normal mood, normal affect. Judgment and insight within normal limits. SKIN: No significant ecchymosis, rash, ulcerations or signs of pruritus noted. MUSCULOSKELETAL EXAM: No significant joint swelling noted. Results Laboratory Results: 09/26/17 08:55 09/25/17 06:55 09/26/17 08:55 WBC 14.8 H RBC 4.00 L Hgb 11.7 L Hct 34.9 L MCV 87 MCH 29.2 MCHC 33.5 RDW 15.0 H Plt Count 267 Seg Neutrophils % 84.7 H Lymphocytes % 7.1 L Monocytes % 7.9 Eosinophils % 0.0 Basophils % 0.3 Absolute Neutrophils 12.6 H Absolute Lymphocytes 1.0 Absolute Monocytes 1.2 Absolute Eosinophils 0.0 Absolute Basophils 0.0 09/24/17 09/24/17 09/24/17 15:18 20:10 20:10 CK-MB (CK-2) 1.99 2.07 Troponin I 0.109 0.070 09/25/17 01:43 CK-MB (CK-2) 1.90 Troponin I 0.047 Impressions: Abdomen/Pelvis CT 09/24/17 06:57 IMPRESSION: 1. 2.2 CM SOLID MASS IN THE LEFT KIDNEY. RECOMMEND FOLLOW-UP WITH ROUTINE OUTPATIENT MRI OF THE ABDOMEN. 2. BILOBED SOFT TISSUE MASS IN THE LEFT ADRENAL GLAND. THIS COULD BE AN ADENOMA ALTHOUGH SOMEWHAT HETEROGENOUS APPEARANCE. THIS ALSO WOULD BE EVALUATED WITH OUTPATIENT MRI OF THE ABDOMEN. 3. NO OTHER SIGNIFICANT OR ACUTE FINDING IN THE ABDOMEN OR PELVIS ON CT SCAN WITH IV CONTRAST. Abdomen Ultrasound 09/24/17 08:51 IMPRESSION: 1. GALLSTONES, THE LARGEST MEASURING 3.3 CM. ADENOMYOMATOSIS OF THE GALLBLADDER WALL. 2. HEPATOMEGALY WITH DIFFUSE FATTY INFILTRATION OF THE LIVER. 3. NO OTHER SIGNIFICANT FINDINGS. Assessment & Plan - Diagnosis (1) Acute cholecystitis Is this a current diagnosis for this admission?: Yes (2) COPD (chronic obstructive pulmonary disease) Qualifiers: COPD type: unspecified COPD Qualified Code(s): J44.9 - Chronic obstructive pulmonary disease, unspecified Is this a current diagnosis for this admission?: Yes (3) Obesity Qualifiers: Obesity type: unspecified obesity type Body mass index: BMI 40.0-44.9 Is this a current diagnosis for this admission?: Yes (4) Cardiac pacemaker in situ Is this a current diagnosis for this admission?: Yes (5) Aortic stenosis Qualifiers: Cardiac valve disease etiology: nonrheumatic Qualified Code(s): I35.0 - Nonrheumatic aortic (valve) stenosis Is this a current diagnosis for this admission?: Yes (6) Mitral regurgitation Qualifiers: Cardiac valve disease etiology: nonrheumatic Qualified Code(s): I34.0 - Nonrheumatic mitral (valve) insufficiency Is this a current diagnosis for this admission?: Yes (7) Elevated troponin I level Is this a current diagnosis for this admission?: Yes - Notes Notes: Patient has done well post cholecystectomy without any cardiac complications. Troponin I elevation was most likely related to systemic inflammatory response syndrome from acute cholecystitis. Patient has done well from cardiac standpoint and also otherwise. Will continue to follow. - Time Time with patient: 15-25 minutes - CODE STATUS was discussed, patient remains full code. Surrogate decision-maker unchanged. Multiple medical problems were addressed. More than 50% of the time spent coordinating care, discussing management plans with involved caregivers. Management plans discussed with involved personnels. Medical decision making was of moderate to high complexity , patient's has multiple comorbidities. Medications reviewed and adjusted accordingly: Yes
== END 2017-09-26 12:56 | disposition home or self-care (01) | DRG 418 ==
LOC: ER 05:54 → EH 12:31 → UNDOADMIN 12:31 → 4N 17:15
PROVIDERS: ADMIT Emergency Medicine; ATTEND Emergency Medicine
PROC: 3E0F73Z Introduction of Anti-inflammatory into Respiratory Tract, Via Natural or Artificial Opening (ICD-10-PCS; 2017-09-24)
PROC: 0FT44ZZ Resection of Gallbladder, Percutaneous Endoscopic Approach (ICD-10-PCS; principal; 2017-09-25 11:00)
DX: K80.00 Calculus of gallbladder with acute cholecystitis without obstruction (principal); I50.32 Chronic diastolic (congestive) heart failure; Z68.41 Body mass index [BMI] 40.0-44.9, adult; I48.91 Unspecified atrial fibrillation; E78.5 Hyperlipidemia, unspecified; I10 Essential (primary) hypertension; N28.89 Other specified disorders of kidney and ureter; J44.9 Chronic obstructive pulmonary disease, unspecified; M47.9 Spondylosis, unspecified; I08.0 Rheumatic disorders of both mitral and aortic valves; K76.0 Fatty (change of) liver, not elsewhere classified; E66.9 Obesity, unspecified; Z88.6 Allergy status to analgesic agent; Z79.82 Long term (current) use of aspirin; Z79.899 Other long term (current) drug therapy; Z95.0 Presence of cardiac pacemaker; Z87.891 Personal history of nicotine dependence; Z82.3 Family history of stroke; Z82.49 Family history of ischemic heart disease and other diseases of the circulatory system
CPT/HCPCS: 00790; 36415; 74177; 76705; 80053; 80061; 80074; 81001; 82550; 82553; 83036; 83690; 83735; 84439; 84443; 84484; 85025; 87040; 88304; 93005; 93010; 93306; 96374; 96375; 96376; 99285; G8978-GP; G8979-GP; G8980-GP; J0295; J0330; J1100; J1170; J1885; J2250; J2405; J2543; J2704; J3010; J3490; J7120; S0164

== ENCOUNTER 2018-02-27 16:11 | Inpatient (IN) | payer OTHER, MEDICARE ==
--- NOTE | 2018-02-27 16:42 | ER Document Report ---
ED Medical Screen (RME) - General Chief Complaint: Shortness Of Breath Stated Complaint: SHORTNESS OF BREATH Time Seen by Provider: 02/27/18 16:36 Notes: RAPID MEDICAL EVALUATION DISCLOSURE I have seen this patient as part of a Rapid Medical Evaluation and, if applicable, placed any initially appropriate orders. The patient will be seen and fully evaluated, including a full history and physical exam, by a provider ( in Main ED or Fast Track) when a room becomes available. 73-year-old male PMH CHF here with complaints of shortness of breath and chest pain over the past 1 week. Symptoms are worse with exertion. He does wear supplemental oxygen 24 7 however he has seen his oxygen level drop as low as 75 % even with use of the supplemental oxygen. His doctor sent him over for further evaluation. EXAM CTAB RRR with murmur 2+ pitting edema BLEs TRAVEL OUTSIDE OF THE [place] IN LAST 30 DAYS: No - Related Data Allergies/Adverse Reactions: codeine [Codeine] Allergy (Verified 02/27/18 16:15) Past Medical History - Past Medical History Cardiac Medical History: Reports: Hx Atrial Fibrillation, Hx Hypercholesterolemia, Hx Hypertension Pulmonary Medical History: Reports: Hx COPD Renal/ Medical History: Denies: Hx Peritoneal Dialysis Musculoskeltal Medical History: Reports Hx Arthritis - back pain Psychiatric Medical History: Denies: Hx Depression Past Surgical History: Reports: Hx Appendectomy, Hx Herniorrhaphy, Hx Orthopedic Surgery - right shoulder surgery, Hx Tonsillectomy - Immunizations Hx Diphtheria, Pertussis, Tetanus Vaccination: Yes - Unknown History of Influenza Vaccine for 05/2017 - 10/2017 Season: Yes Influenza Administration Date for 05/2017 - 10/2017 Season: 06/15/17 Physical Exam - Vital signs Vitals: Temp Pulse Resp BP Pulse Ox 98.5 F 66 20 122/53 L 74 L 02/27/18 16:30 02/27/18 16:30 02/27/18 16:30 02/27/18 16:30 02/27/18 16:30 Course - Vital Signs Vital signs: Temp Pulse Resp BP Pulse Ox 98.5 F 66 20 122/53 L 74 L 02/27/18 16:30 02/27/18 16:30 02/27/18 16:30 02/27/18 16:30 02/27/18 16:30
--- NOTE | 2018-02-27 17:14 | RADIOLOGY REPORT (SQ) ---
EXAM DESCRIPTION: CHEST 2 VIEWS COMPLETED DATE/TIME: 02/27/2018 4:59 pm REASON FOR STUDY: CP SOB COMPARISON: 10/06/2016 EXAM PARAMETERS: NUMBER OF VIEWS: two views TECHNIQUE: Digital Frontal and Lateral radiographic views of the chest acquired. RADIATION DOSE: NA LIMITATIONS: none FINDINGS: LUNGS AND PLEURA: Bilateral pleural effusions right greater than left. Right basilar opac ity. MEDIASTINUM AND HILAR STRUCTURES: No masses or contour abnormalities. HEART AND VASCULAR STRUCTURES: Heart normal size. No evidence for failure. BONES: No acute findings. HARDWARE: Stool lead transvenous pacemaker. OTHER: No other significant finding. IMPRESSION: Bilateral pleural effusions right greater than left and right basilar opacities. No obv ious congestive failure. TECHNICAL DOCUMENTATION: JOB ID: [id number] [employer]- All Rights Reserved Reading location - IP/workstation name: [email or web address]
[2018-02-27] MEDS ORDERED: FUROSEMIDE INJ/PF 40 MG/4 ML SDV IV ONE (17:34)
[2018-02-27 17:39] LABS: ABSOLUTE BASOPHILS # (AUTO) 0.1 10^3/uL (0.0-0.2); ABSOLUTE EOSINOPHILS # (AUTO) 0.1 10^3/uL (0.0-0.6); ABSOLUTE LYMPHOCYTES (AUTO) 1.1 10^3/uL (0.5-4.7); ABSOLUTE MONOCYTES (AUTO) 1.1 10^3/uL (0.1-1.4); ABSOLUTE NEUT (AUTO) 7.5 10^3/uL (1.7-8.2); BASOPHILS % (AUTO) 0.6 % (0-2); EOSINOPHILS % (AUTO) 0.8 % (0-6); HEMOGLOBIN 10.5 g/dL (13.5-17.0); LYMPHOCYTES % (AUTO) 11.1 % (13-45); MEAN CORPUSCULAR HEMOGLOBIN 26.5 pg (27.0-33.4); MEAN CORPUSCULAR HGB CONC 31.7 g/dL (32.0-36.0); MEAN CORPUSCULAR VOLUME 83 fl (80-97); MONOCYTES % (AUTO) 10.8 % (3-13); PLATELET COUNT 272 10^3/uL (150-450); RED BLOOD COUNT 3.96 10^6/uL (4.35-5.55); RED CELL DISTRIBUTION WIDTH 15.1 % (11.5-14.0); SEGMENTED NEUTROPHILS % (AUTO) 76.7 % (42-78); TOTAL CELLS COUNTED % (AUTO) 100 %; WHITE BLOOD COUNT 9.7 10^3/uL (4.0-10.5)
--- NOTE | 2018-02-27 17:49 | ER Document Report ---
ED General - General Chief Complaint: Shortness Of Breath Stated Complaint: SHORTNESS OF BREATH Time Seen by Provider: 02/27/18 16:36 Mode of Arrival: Ambulatory Information source: Patient Notes: 73-year-old male history of COPD CHF presents with complaints of shortness of breath difficulty breathing, patient notes that symptoms have been worsening over the past week. Patient is on water pills. Patient denies any fevers or chills admits to productive white sputum. Patient notes lower extremity edema TRAVEL OUTSIDE OF THE [place] IN LAST 30 DAYS: No - HPI Onset: Last week Onset/Duration: Persistent, Worse Quality of pain: Achy Severity: Moderate Pain Level: 3 Associated symptoms: Productive cough, Leg swelling, Shortness of breath Exacerbated by: Walking Relieved by: Denies Similar symptoms previously: Yes Recently seen / treated by doctor: Yes - Related Data Allergies/Adverse Reactions: codeine [Codeine] Allergy (Verified 02/27/18 16:15) Past Medical History - Social History Smoking Status: Current Every Day Smoker Cigarette use (# per day): Yes Chew tobacco use (# tins/day): No Smoking Education Provided: No Family History: None, CAD, CVA Patient has suicidal ideation: No Patient has homicidal ideation: No - Past Medical History Cardiac Medical History: Reports: Hx Atrial Fibrillation, Hx Hypercholesterolemia, Hx Hypertension Pulmonary Medical History: Reports: Hx COPD Renal/ Medical History: Denies: Hx Peritoneal Dialysis Musculoskeletal Medical History: Reports Hx Arthritis - back pain Psychiatric Medical History: Denies: Hx Depression Past Surgical History: Reports: Hx Appendectomy, Hx Herniorrhaphy, Hx Orthopedic Surgery - right shoulder surgery, Hx Tonsillectomy - Immunizations Hx Diphtheria, Pertussis, Tetanus Vaccination: Yes - Unknown Hx Pneumococcal Vaccination: 08/15/14 Review of Systems - Review of Systems Notes: PHYSICAL EXAMINATION: GENERAL: Well-appearing, well-nourished and in no acute distress. HEAD: Atraumatic, normocephalic. EYES: Pupils equal round and reactive to light, extraocular movements intact, sclera anicteric, conjunctiva are normal. ENT: Nares patent, oropharynx clear without exudates. Moist mucous membranes. NECK: Normal range of motion, supple without lymphadenopathy LUNGS: Crackles at bilateral bases HEART: Regular rate and rhythm without murmurs ABDOMEN: Soft, nontender, nondistended abdomen. No guarding, no rebound. No masses appreciated. Musculoskeletal: Bilateral peripheral edema +3 NEUROLOGICAL: Cranial nerves grossly intact. Normal speech, normal gait. Normal sensory, motor exams PSYCH: Normal mood, normal affect. SKIN: Warm, Dry, normal turgor, no rashes or lesions noted. Physical Exam - Vital signs Vitals: Temp Pulse Resp BP Pulse Ox 98.5 F 66 20 122/53 L 74 L 02/27/18 16:30 02/27/18 16:30 02/27/18 16:30 02/27/18 16:30 02/27/18 16:30 Course - Re-evaluation Re-evalutation: 02/27/18 18:01 Patient's presentation is most consistent with CHF exacerbation bilateral pleural effusions noted on x-ray patient will be started on Lasix IV will admit to hospital service - Vital Signs Vital signs: Temp Pulse Resp BP Pulse Ox 98.5 F 66 20 122/53 L 74 L 02/27/18 16:30 02/27/18 16:30 02/27/18 16:30 02/27/18 16:30 02/27/18 16:30 - Laboratory Result Diagrams: 02/27/18 17:05 02/27/18 17:05 Laboratory results interpreted by me: 02/27/18 17:05 RBC 3.96 L Hgb 10.5 L Hct 33.0 L MCH 26.5 L MCHC 31.7 L RDW 15.1 H Lymphocytes % 11.1 L - Diagnostic Test Radiology reviewed: Image reviewed, Reports reviewed Discharge - Discharge Clinical Impression: CHF exacerbation Condition: Fair Disposition: ADMITTED INPATIENT Admitting Provider: Hospitalist Unit Admitted: Telemetry
[2018-02-27 17:58] LABS: ANION GAP 10 (5-19); BLOOD UREA NITROGEN 13 mg/dL (7-20); CARBON DIOXIDE 39 mmol/L (22-30); CHLORIDE 98 mmol/L (98-107); GLUCOSE 132 mg/dL (75-110); POTASSIUM 3.8 mmol/L (3.6-5.0); SODIUM 146.9 mmol/L (137-145)
[2018-02-27 18:09] LABS: NT PRO BNP 163 pg/mL (5-900)
[2018-02-27 18:11] LABS: TROPONIN I < 0.012 ng/mL
--- NOTE | 2018-02-27 19:23 | EKG REPORT ---
SEVERITY:- ABNORMAL ECG - SINUS OR ECTOPIC ATRIAL RHYTHM ATRIAL PREMATURE COMPLEX, AND BLOCKED APC FIRST DEGREE AV BLOCK RIGHT AXIS DEVIATION BORDERLINE T ABNORMALITIES, ANT-LAT LEADS : Confirmed by: Mal Machado 27-Feb-2018 19:22:36
--- NOTE | 2018-02-28 02:56 | PDOC H&P ---
History of Present Illness Admission Date/PCP: 02/27/18 18:25 Patient complains of: Shortness of breath History of Present Illness: STONE GROVE JR is a 73 year old male comes to the emergency department complaining of progressive shortness of breath for the last week, associated with cough with whitish sputum, increased leg swelling on and off more when he is ambulatory. States is compliant with his 20 mg of p.o. home Lasix. Tells me that he has gained weight to 282 pounds early August to this admission, states he is a scale at home does not work. Into his primary care physician who advised him to come to the emergency department. In the ED patient was found with oxygen saturation in the 75%. Patient is chronic respiratory failure on 3 L oxygen at home. Chest x-ray shows bilateral pleural effusions. Echocardiogram this year with diastolic dysfunction. The ED given 60 mg of IV Lasix. Denies wheezing, dizziness, lightheadedness, fever, chills chest pain, abdominal pain, changes in his urine or bowel movements. Past Medical History Medical History: Other - Bradycardia, PVCs Cardiac Medical History: Reports: Atrial Fibrillation, Hyperlipidema, Hypertension Pulmonary Medical History: Reports: Chronic Obstructive Pulmonary Disease (COPD) Musculoskeltal Medical History: Reports: Arthritis - back pain, Other - Back pain Psychiatric Medical History: Denies: Depression Past Surgical History Past Surgical History: Reports: Appendectomy, Cholecystectomy, Herniorrhaphy, Orthopedic Surgery - right shoulder surgery, Tonsillectomy Social History Smoking Status: Current Every Day Smoker Frequency of Alcohol Use: None Hx Recreational Drug Use: No Drugs: None Hx Prescription Drug Abuse: No Family History Family History: None, CAD, CVA Parental Family History Reviewed: Yes Children Family History Reviewed: Yes Sibling(s) Family History Reviewed.: Yes Medication/Allergy Home Medications: Fluticasone/Salmeterol [Advair 250-50 Diskus 14 Dose/Diskus] 1 puff IH Q12 09/24 Furosemide [Lasix 40 mg Tablet] 20 mg PO DAILY 09/24/17 Tamsulosin HCl [Flomax 0.4 mg Cap.sr] 0.4 mg PO DAILY 09/24/17 Verapamil HCl [Calan 120 mg Tablet] 120 mg PO Q12 09/24/17 Rivaroxaban [Xarelto] 20 mg PO DAILY 09/26/17 Dronedarone HCl [Multaq] 400 mg PO Q12 02/27/18 Multivit-Min/FA/Lycopen/Lutein [Centrum Silver Men Tablet] 1 each PO DAILY 02/27 Allergies/Adverse Reactions: codeine [Codeine] Allergy (Verified 02/27/18 16:15) Review of Systems Review of Systems: As outlined in the HPI, others negative Physical Exam Vital Signs: Temp Pulse Resp BP Pulse Ox 97.6 F 61 18 115/80 95 02/27/18 23:26 02/28/18 00:23 02/27/18 23:26 02/27/18 23:26 02/27/18 23:26 Intake & Output 02/26/18 02/27/18 02/28/18 06:59 06:59 06:59 Output Total 221 Balance -221 Weight 141.5 kg Additional comments: General appearance: Morbid obese, alert and cooperative, and appears to be in no acute distress Head: Normocephalic Eyes: PEERL, EOMI, vision is grossly intact. Ears: External auditory canal and tympanic membranes clear, hearing grossly intact. Nose: No nasal discharge. Throat: Oral cavity and pharynx normal. No inflammation, swelling, exudate or lesions. Neck: Neck supple, nontender without lymphadenopathy, masses or thyromegaly. Cardiac: Normal S1 and S2. No S3, S4 or murmurs. Rhythm is regular. There is 3+ pitting peripheral edema, no cyanosis or pallor. Extremities are warm and well perfused. Capillary refill is less than 2 seconds. No carotid bruits. Lungs: with bibasilar rales, no rhonchi or wheezing used diminished breath sounds. Not using accessory muscles. Abdomen: Positive bowel sounds. Soft. Nondistended, nontender. No guarding or rebound. No masses. No hepatosplenomegaly Extremities: No significant deformity or joint abnormality. No edema. Peripheral pulses intact. No varicosities. Erythemic shins of both legs Neurological: Cranial nerves II through XII grossly intact. Strength and sensation symmetric and intact throughout. Reflexes 2+ throughout. Skin: Skin normal texture and turgor with no lesions or eruptions, warm and dry. Psychiatric: The mental examination revealed the patient was oriented to person , place, and time. The patient was able to demonstrate good judgment on recent , without hallucinations, abnormal affect or abnormal behaviors. Results Laboratory Results: 02/27/18 23:10 Troponin I < 0.012 Impressions: Chest X-Ray 02/27/18 16:41 IMPRESSION: Bilateral pleural effusions right greater than left and right basilar opacities. No obvious congestive failure. Assessment & Plan - Diagnosis (1) Acute on chronic diastolic CHF (congestive heart failure) Is this a current diagnosis for this admission?: Yes Plan: Comes with progressive shortness of breath had a recent echocardiogram with diastolic dysfunction with normal EF, weight gain. She is on 20 mg of p.o. Lasix. We are going to give 40 mg IV Lasix twice daily. Continue telemetry monitoring. Cardiac markers 3 first set of troponins negative. Early weights. Strict input and output. Fluid restriction 1500 per day. Cardiology evaluation if necessary. Chest x-ray with bilateral pleural effusions and BMP 163, lower than September 2016 was 189 (2) COPD (chronic obstructive pulmonary disease) Qualifiers: COPD type: unspecified COPD Qualified Code(s): J44.9 - Chronic obstructive pulmonary disease, unspecified Is this a current diagnosis for this admission?: No Plan: On physical the patient has a COPD exacerbation upon my examination, can continue with home bronchodilators. (3) Hypertension Qualifiers: Hypertension type: essential hypertension Qualified Code(s): I10 - Essential (primary) hypertension Is this a current diagnosis for this admission?: No Plan: Continue home antihypertensive medications (4) Ventricular arrhythmia Is this a current diagnosis for this admission?: No Plan: Stable during this admission, anticoagulation with Xarelto. No documented history of atrial fibrillation pn prior records - Time Time Spent: 30 to 50 Minutes Medications reviewed and adjusted accordingly: Yes Anticipated discharge: Home Within: within 72 hours - Inpatient Certification Based on my medical assessment, after consideration of the patient's comorbidities, presenting symptoms, or acuity I expect that the services needed warrant INPATIENT care.: Yes I certify that my determination is in accordance with my understanding of Medicare's requirements for reasonable and necessary INPATIENT services [42 CFR 412.3e].: Yes Medical Necessity: Significant Comorbidiites Make Outpatient Treatment Too Risky Post Hospital Care: D/C Special Agent In Charge Documentation
[2018-02-28] MEDS: FUROSEMIDE INJ/PF 40 MG/4 ML SDV IV SCH ×2 (05:18→19:05)
[2018-02-28 05:48] LABS: INTERNATIONAL RATION (INR) 1.89; PROTHROMBIN TIME 22.6 SEC (11.4-15.4)
[2018-02-28 05:57] LABS: ALANINE AMINOTRANSFERASE 23 U/L (21-72); ALBUMIN 3.4 g/dL (3.5-5.0); ALKALINE PHOSPHATASE 68 U/L (38-126); ASPARTATE AMINO TRANSFERASE 17 U/L (17-59); BILIRUBIN,DIRECT 0.2 mg/dL (0.0-0.4); BLOOD UREA NITROGEN 13 mg/dL (7-20); CALCIUM 8.9 mg/dL (8.4-10.2); CHLORIDE 98 mmol/L (98-107); GLUCOSE 122 mg/dL (75-110); POTASSIUM 3.7 mmol/L (3.6-5.0); SODIUM 146.3 mmol/L (137-145); TOTAL PROTEIN 6.2 g/dL (6.3-8.2)
[2018-02-28 06:01] LABS: ABSOLUTE BASOPHILS # (AUTO) 0.1 10^3/uL (0.0-0.2); ABSOLUTE EOSINOPHILS # (AUTO) 0.1 10^3/uL (0.0-0.6); ABSOLUTE LYMPHOCYTES (AUTO) 1.2 10^3/uL (0.5-4.7); ABSOLUTE MONOCYTES (AUTO) 1.1 10^3/uL (0.1-1.4); ABSOLUTE NEUT (AUTO) 7.4 10^3/uL (1.7-8.2); BASOPHILS % (AUTO) 0.7 % (0-2); EOSINOPHILS % (AUTO) 0.8 % (0-6); HEMATOCRIT 30.8 % (37.9-51.0); HEMOGLOBIN 9.9 g/dL (13.5-17.0); LYMPHOCYTES % (AUTO) 12.3 % (13-45); MEAN CORPUSCULAR HEMOGLOBIN 26.7 pg (27.0-33.4); MEAN CORPUSCULAR HGB CONC 32.1 g/dL (32.0-36.0); MEAN CORPUSCULAR VOLUME 83 fl (80-97); MONOCYTES % (AUTO) 11.2 % (3-13); PLATELET COUNT 274 10^3/uL (150-450); RED BLOOD COUNT 3.72 10^6/uL (4.35-5.55); RED CELL DISTRIBUTION WIDTH 14.8 % (11.5-14.0); TOTAL CELLS COUNTED % (AUTO) 100 %; WHITE BLOOD COUNT 9.9 10^3/uL (4.0-10.5)
[2018-02-28 06:06] LABS: ANION GAP 6 (5-19)
[2018-02-28 06:09] LABS: CARBON DIOXIDE 42 mmol/L (22-30)
[2018-02-28] MEDS: TAMSULOSIN HCL 0.4 MG CAP.SR.24H PO SCH (11:33)
[2018-02-28] MEDS ORDERED: FLUTICASONE/SALMETEROL DISKUS 250-50 MCG/DOSE IH ONE (12:00)
[2018-02-28] MEDS ORDERED: DRONEDARONE HYDROCHLORIDE 400 MG TABLET PO ONE (12:00)
[2018-02-28] MEDS ORDERED: VERAPAMIL HCL 120 MG TABLET PO ONE (12:00)
[2018-02-28] MEDS ORDERED: VERAPAMIL HCL 120 MG TABLET.SA PO ONE (12:00)
[2018-02-28] MEDS ORDERED: RIVAROXABAN 10 MG TABLET PO ONE (12:00)
--- NOTE | 2018-02-28 16:48 | PDOC PROGRESS REPORT ---
<ELINOR YIP - Last Filed: 02/28/18 16:29> Subjective Progress Note for:: 02/28/18 Subjective:: Patient is seen resting in bedside recliner. He denies chest pain, shortness of breath or dyspnea at rest. He does still get short of breath with exertion. He wears oxygen at 3l/min via nasal cannula continously at home. He denies any fever or chills. He denies any nausea, vomiting or abdominal pain. He denies any diarrhea. He continues to have lower extremity edema. He does not weigh himself at home because he has no scales. He denies any arthralgias or myalgias. Remaining review of systems are negative Reason For Visit: ACUTE ON CHRONIC DIASTOLIC HEART FAILURE Physical Exam Vital Signs: Temp Pulse Resp BP Pulse Ox 97.8 F 59 L 19 105/49 L 90 L 02/28/18 15:25 02/28/18 15:25 02/28/18 15:25 02/28/18 15:25 02/28/18 15:25 Intake & Output 02/27/18 02/28/18 03/01/18 06:59 06:59 06:59 Intake Total 447 846 Output Total 1071 675 Balance -624 171 Weight 137.6 kg General appearance: PRESENT: no acute distress, well-developed, well-nourished Head exam: PRESENT: atraumatic, normocephalic Eye exam: PRESENT: conjunctiva pink, EOMI, PERRLA. ABSENT: scleral icterus Ear exam: PRESENT: normal external ear exam Mouth exam: PRESENT: moist, tongue midline Neck exam: ABSENT: carotid bruit, JVD, lymphadenopathy, thyromegaly Respiratory exam: PRESENT: crackles, decreased breath sounds, symmetrical, unlabored - bilateral. ABSENT: rales, rhonchi, wheezes Cardiovascular exam: PRESENT: RRR, systolic murmur - 2/6 systolic murmur. ABSENT: diastolic murmur, rubs Pulses: PRESENT: normal carotid pulses, normal radial pulses Vascular exam: PRESENT: normal capillary refill GI/Abdominal exam: PRESENT: normal bowel sounds, soft. ABSENT: distended, guarding, mass, organolmegaly, rebound, tenderness Rectal exam: PRESENT: deferred Extremities exam: PRESENT: full ROM - bilateral pedal to knees bilaterally, +2 edema Musculoskeletal exam: PRESENT: ambulatory Neurological exam: PRESENT: alert, awake, oriented to person, oriented to place , oriented to time, oriented to situation, CN II-XII grossly intact. ABSENT: motor sensory deficit Psychiatric exam: PRESENT: appropriate affect, normal mood. ABSENT: homicidal ideation, suicidal ideation Skin exam: PRESENT: dry, erythema, warm Results Laboratory Results: 02/28/18 05:12 02/28/18 05:12 02/28/18 02/28/18 05:12 05:12 WBC 9.9 RBC 3.72 L Hgb 9.9 L Hct 30.8 L MCV 83 MCH 26.7 L MCHC 32.1 RDW 14.8 H Plt Count 274 Seg Neutrophils % 75.0 Lymphocytes % 12.3 L Monocytes % 11.2 Eosinophils % 0.8 Basophils % 0.7 Absolute Neutrophils 7.4 Absolute Lymphocytes 1.2 Absolute Monocytes 1.1 Absolute Eosinophils 0.1 Absolute Basophils 0.1 Sodium 146.3 H Potassium 3.7 Chloride 98 Carbon Dioxide 42 H* Anion Gap 6 BUN 13 Creatinine 0.95 Est GFR ( Amer) > 60 Est GFR (Non-Af Amer) > 60 Glucose 122 H Calcium 8.9 Magnesium 2.0 Total Bilirubin 1.0 AST 17 ALT 23 Alkaline Phosphatase 68 Total Protein 6.2 L Albumin 3.4 L 02/27/18 02/28/18 02/28/18 23:10 05:12 11:30 Troponin I < 0.012 < 0.012 < 0.012 Impressions: Chest X-Ray 02/27/18 16:41 IMPRESSION: Bilateral pleural effusions right greater than left and right basilar opacities. No obvious congestive failure. Assessment & Plan - Diagnosis (1) Acute on chronic diastolic CHF (congestive heart failure) Is this a current diagnosis for this admission?: Yes Plan: Patient with history of chronic diastolic heart failure 2/4. His dyspnea has improved with diuresis. He continues to have +2 lower extremity edema. We will continue to diuresis. Suspect there is components of dietary noncompliance as well. He states he does not weigh himself either because he does not have a scale at home. Will consult transitional care specialists as well to follow post discharge. (2) Aortic stenosis QualifierTitle: Cardiac valve disease etiology: nonrheumatic Qualified Code(s): I35.0 - Nonrheumatic aortic (valve) stenosis Is this a current diagnosis for this admission?: Yes Plan: He is being followed by his housing installer at [place] for this. (3) COPD (chronic obstructive pulmonary disease) QualifierTitle: COPD type: unspecified COPD Qualified Code(s): J44.9 - Chronic obstructive pulmonary disease, unspecified Is this a current diagnosis for this admission?: No Plan: Continue inhalers. (5) Hypertension QualifierTitle: Hypertension type: essential hypertension Qualified Code( s): I10 - Essential (primary) hypertension Is this a current diagnosis for this admission?: Yes Plan: Continue current medications he is normotensive (6) Lower extremity edema Is this a current diagnosis for this admission?: Yes Plan: Continues to have +2 lower extremity edema bilaterally. Continue IV diuresis. States he has not been watching his diet or weighing himself. (7) Mitral regurgitation QualifierTitle: Cardiac valve disease etiology: nonrheumatic Qualified Code(s): I34.0 - Nonrheumatic mitral (valve) insufficiency Is this a current diagnosis for this admission?: Yes Plan: Followed by his housing installer at [facility] (8) Obesity QualifierTitle: Obesity type: unspecified obesity type Body mass index: BMI 40.0-44.9 Is this a current diagnosis for this admission?: Yes Plan: Patient was counseled at length. (9) Shortness of breath on exertion Is this a current diagnosis for this admission?: Yes Plan: Improved since admission. He does wear oxygen at home by nasal cannula 3 L/min continuously. He is back to that setting. Diuresed well with IV Lasix. (10) Tobacco abuse Is this a current diagnosis for this admission?: Yes Plan: Patient has been counseled. 10 minutes spent regarding tobacco cessation - Time Time Spent with patient: 25-34 minutes Total Critical Time (Minutes): 20 Medications reviewed and adjusted accordingly: Yes Anticipated discharge: Home with Homehealth <NATASHA ROBB - Last Filed: 02/28/18 18:12> Subjective Reason For Visit: ACUTE ON CHRONIC DIASTOLIC HEART FAILURE Physical Exam Vital Signs: Temp Pulse Resp BP Pulse Ox 97.8 F 59 L 19 105/49 L 90 L 02/28/18 15:25 02/28/18 15:25 02/28/18 15:25 02/28/18 15:25 02/28/18 15:25 Intake & Output 02/27/18 02/28/18 03/01/18 06:59 06:59 06:59 Intake Total 447 846 Output Total 1075 3455 Balance -624 -429 Weight 137.6 kg 137.6 kg Results Laboratory Results: 02/28/18 05:12 02/28/18 05:12 02/28/18 02/28/18 05:12 05:12 WBC 9.9 RBC 3.72 L Hgb 9.9 L Hct 30.8 L MCV 83 MCH 26.7 L MCHC 32.1 RDW 14.8 H Plt Count 274 Seg Neutrophils % 75.0 Lymphocytes % 12.3 L Monocytes % 11.2 Eosinophils % 0.8 Basophils % 0.7 Absolute Neutrophils 7.4 Absolute Lymphocytes 1.2 Absolute Monocytes 1.1 Absolute Eosinophils 0.1 Absolute Basophils 0.1 Sodium 146.3 H Potassium 3.7 Chloride 98 Carbon Dioxide 42 H* Anion Gap 6 BUN 13 Creatinine 0.95 Est GFR ( Amer) > 60 Est GFR (Non-Af Amer) > 60 Glucose 122 H Calcium 8.9 Magnesium 2.0 Total Bilirubin 1.0 AST 17 ALT 23 Alkaline Phosphatase 68 Total Protein 6.2 L Albumin 3.4 L 02/27/18 02/28/18 02/28/18 23:10 05:12 11:30 Troponin I < 0.012 < 0.012 < 0.012 Impressions: Chest X-Ray 02/27/18 16:41 IMPRESSION: Bilateral pleural effusions right greater than left and right basilar opacities. No obvious congestive failure. Provider Note Provider Note: I have discussed the patient in detail with OMAR Yip. I am in agreement with her evaluation and plan.
[2018-02-28] MEDS: DRONEDARONE HYDROCHLORIDE 400 MG TABLET PO SCH (22:16)
[2018-02-28] MEDS: FLUTICASONE/SALMETEROL DISKUS 250-50 MCG/DOSE IH SCH (22:16)
[2018-02-28] MEDS: VERAPAMIL HCL 120 MG TABLET PO SCH (22:16)
[2018-03-01] MEDS: FUROSEMIDE INJ/PF 40 MG/4 ML SDV IV SCH ×2 (06:03→17:53)
[2018-03-01] MEDS: DRONEDARONE HYDROCHLORIDE 400 MG TABLET PO SCH ×2 (10:00→22:09)
[2018-03-01] MEDS: FLUTICASONE/SALMETEROL DISKUS 250-50 MCG/DOSE IH SCH ×2 (10:00→22:09)
[2018-03-01] MEDS: RIVAROXABAN 10 MG TABLET PO SCH (10:01)
[2018-03-01] MEDS: VERAPAMIL HCL 120 MG TABLET PO SCH ×2 (10:01→22:09)
[2018-03-01] MEDS: TAMSULOSIN HCL 0.4 MG CAP.SR.24H PO SCH (11:34)
[2018-03-01] MEDS ORDERED: LIDOCAINE 5% (700 MG) TRANSDERMAL ADH..PATCH TP PRN (22:35)
[2018-03-01] MEDS ORDERED: LIDOCAINE 5% (700 MG) TRANSDERMAL ADH..PATCH ONE (23:01)
[2018-03-02] MEDS: FUROSEMIDE INJ/PF 40 MG/4 ML SDV IV SCH ×2 (06:22→17:07)
[2018-03-02 08:15] LABS: ABSOLUTE BASOPHILS # (AUTO) 0.1 10^3/uL (0.0-0.2); ABSOLUTE EOSINOPHILS # (AUTO) 0.1 10^3/uL (0.0-0.6); ABSOLUTE LYMPHOCYTES (AUTO) 0.9 10^3/uL (0.5-4.7); ABSOLUTE MONOCYTES (AUTO) 1.4 10^3/uL (0.1-1.4); ABSOLUTE NEUT (AUTO) 9.4 10^3/uL (1.7-8.2); BASOPHILS % (AUTO) 0.5 % (0-2); EOSINOPHILS % (AUTO) 0.9 % (0-6); HEMATOCRIT 31.1 % (37.9-51.0); HEMOGLOBIN 9.9 g/dL (13.5-17.0); LYMPHOCYTES % (AUTO) 7.8 % (13-45); MEAN CORPUSCULAR HEMOGLOBIN 26.2 pg (27.0-33.4); MEAN CORPUSCULAR HGB CONC 31.8 g/dL (32.0-36.0); MEAN CORPUSCULAR VOLUME 82 fl (80-97); PLATELET COUNT 253 10^3/uL (150-450); RED BLOOD COUNT 3.78 10^6/uL (4.35-5.55); RED CELL DISTRIBUTION WIDTH 14.9 % (11.5-14.0); SEGMENTED NEUTROPHILS % (AUTO) 78.8 % (42-78); TOTAL CELLS COUNTED % (AUTO) 100 %
[2018-03-02 08:38] LABS: BLOOD UREA NITROGEN 18 mg/dL (7-20); CALCIUM 8.6 mg/dL (8.4-10.2); CHLORIDE 92 mmol/L (98-107); GLUCOSE 115 mg/dL (75-110); POTASSIUM 3.6 mmol/L (3.6-5.0)
--- NOTE | 2018-03-02 08:39 | PDOC PROGRESS REPORT ---
Subjective Progress Note for:: 03/01/18 Subjective:: The patient is resting in the chair. He is sleeping but arousable. He states he still is having significant lower extremity edema and he also complains of scrotal edema. He has had no fever or shaking chills overnight. No chest pain or heart palpitations. His shortness of breath is improved since the time of admission. No nausea vomiting or diarrhea. He remains with a Garcia catheter in place Reason For Visit: ACUTE ON CHRONIC DIASTOLIC HEART FAILURE Physical Exam Vital Signs: Temp Pulse Resp BP Pulse Ox 99.0 F 63 18 119/57 L 94 03/02/18 07:48 03/02/18 07:48 03/02/18 07:48 03/02/18 07:48 03/02/18 07:48 Intake & Output 03/01/18 03/02/18 03/03/18 06:59 06:59 06:59 Intake Total 1253 592 Output Total 2175 2575 - Weight 137 kg 131.9 kg General appearance: PRESENT: no acute distress, morbidly obese, well-developed, well-nourished, other - Somewhat ill-appearing Head exam: PRESENT: atraumatic, normocephalic Mouth exam: PRESENT: moist, tongue midline Respiratory exam: PRESENT: clear to auscultation gregorio, other - He is somewhat diminished in the lower bases bilaterally. ABSENT: rales, rhonchi, wheezes Cardiovascular exam: PRESENT: RRR. ABSENT: diastolic murmur, rubs, systolic murmur GI/Abdominal exam: PRESENT: normal bowel sounds, soft, other - He has presacral edema position. ABSENT: distended, guarding, mass, organolmegaly, rebound, tenderness Rectal exam: PRESENT: deferred Extremities exam: PRESENT: other - The patient has 2+ pitting edema and anasarca up into the presacral area Neurological exam: PRESENT: alert, awake, oriented to person, oriented to place , oriented to time, oriented to situation, CN II-XII grossly intact. ABSENT: motor sensory deficit Psychiatric exam: PRESENT: appropriate affect, normal mood. ABSENT: homicidal ideation, suicidal ideation Skin exam: PRESENT: dry, intact, warm. ABSENT: cyanosis, rash Results Laboratory Results: 02/27/18 02/28/18 02/28/18 23:10 05:12 11:30 Troponin I < 0.012 < 0.012 < 0.012 Impressions: Chest X-Ray 02/27/18 16:41 IMPRESSION: Bilateral pleural effusions right greater than left and right basilar opacities. No obvious congestive failure. Assessment & Plan - Diagnosis (1) Acute and chronic respiratory failure Qualifiers: Respiratory failure complication: hypoxia and hypercapnia Qualified Code(s) : J96.21 - Acute and chronic respiratory failure with hypoxia; J96.22 - Acute and chronic respiratory failure with hypercapnia; J96.22 - Acute and chronic respiratory failure with hypercapnia; J96.22 - Acute and chronic respiratory failure with hypercapnia Is this a current diagnosis for this admission?: Yes Plan: Currently requiring 4 L of oxygen. He was not oxygen dependent at home. Continue oxygen support as needed and aggressive therapy as outlined below (2) Acute on chronic diastolic CHF (congestive heart failure) Is this a current diagnosis for this admission?: Yes Plan: For now the patient will continue aggressive diuresis. A repeat echocardiogram has been ordered. (3) Aortic stenosis Qualifiers: Cardiac valve disease etiology: nonrheumatic Qualified Code(s): I35.0 - Nonrheumatic aortic (valve) stenosis Is this a current diagnosis for this admission?: Yes Plan: The patient follows at the [facility]. An echocardiogram has been ordered. (4) COPD (chronic obstructive pulmonary disease) Qualifiers: COPD type: unspecified COPD Qualified Code(s): J44.9 - Chronic obstructive pulmonary disease, unspecified Is this a current diagnosis for this admission?: No Plan: No evidence of acute exacerbation (5) Ventricular arrhythmia Is this a current diagnosis for this admission?: Yes Plan: The patient will remain on a remote monitor. Currently in a sinus rhythm and rate controlled. (6) Anasarca Is this a current diagnosis for this admission?: Yes Plan: Repeat echocardiogram is pending. Continue IV diuresis. (7) Mitral regurgitation Qualifiers: Cardiac valve disease etiology: nonrheumatic Qualified Code(s): I34.0 - Nonrheumatic mitral (valve) insufficiency Is this a current diagnosis for this admission?: Yes Plan: Again he follows with the [facility]. (8) Tobacco dependence Is this a current diagnosis for this admission?: Yes Plan: Certainly would be in his best interest to quit smoking (9) Morbid obesity Is this a current diagnosis for this admission?: Yes Plan: Dietary discretion is advised (10) Anemia Is this a current diagnosis for this admission?: Yes Plan: He has a microcytic anemia. He follows closely with the [facility]. further workup can be obtained as an outpatient. I will obtain an anemia panel. He may benefit from IV iron (11) Full code status Is this a current diagnosis for this admission?: Yes - Time Time Spent with patient: 25-34 minutes - Inpatient Certification Medical Necessity: Other - Inpatient hospitalization remains necessary. The patient is acutely hypoxic and requiring aggressive IV diuresis. Timing of disposition will be determined by his clinical course
[2018-03-02 08:45] LABS: ANION GAP 9 (5-19)
[2018-03-02 08:55] LABS: CARBON DIOXIDE 43 mmol/L (22-30)
[2018-03-02] MEDS: FLUTICASONE/SALMETEROL DISKUS 250-50 MCG/DOSE IH SCH ×2 (10:08→22:00)
[2018-03-02] MEDS: RIVAROXABAN 10 MG TABLET PO SCH (10:09)
[2018-03-02] MEDS: DRONEDARONE HYDROCHLORIDE 400 MG TABLET PO SCH ×2 (10:09→22:00)
[2018-03-02] MEDS: VERAPAMIL HCL 120 MG TABLET PO SCH ×2 (10:09→22:00)
[2018-03-02] MEDS: TAMSULOSIN HCL 0.4 MG CAP.SR.24H PO SCH (11:51)
--- NOTE | 2018-03-02 19:42 | PDOC PROGRESS REPORT ---
Subjective Progress Note for:: 03/02/18 Subjective:: The patient is a morbidly obese 73-year-old male who presented to the emergency room with increased shortness of breath. He had increasing lower extremity edema and recently has been gaining weight. The patient was found to have acute on chronic respiratory failure as well as bilateral pleural effusions. He had an echocardiogram earlier this year which revealed diastolic dysfunction. The patient was started on IV Lasix and referred for admission. Today the patient states that he is feeling somewhat better. He is back to his baseline oxygen requirements. He still has significant lower extremity edema but states that his legs are not as tight as they were yesterday. He also had significant scrotal edema and he states this is improving as well. Otherwise he denies fever chills. No chest pain or heart palpitations. No nausea vomiting or diarrhea. he has a Garcia catheter in place Reason For Visit: ACUTE ON CHRONIC DIASTOLIC HEART FAILURE Physical Exam Vital Signs: Temp Pulse Resp BP Pulse Ox 97.4 F 60 17 115/56 L 96 03/02/18 15:17 03/02/18 15:17 03/02/18 15:17 03/02/18 15:17 03/02/18 15:17 Intake & Output 03/01/18 03/02/18 03/03/18 06:59 06:59 06:59 Intake Total 1253 592 623 Output Total 7742 7225 1125 [facility] -922 -1983 -502 Weight 137 kg 131.9 kg General appearance: PRESENT: no acute distress, morbidly obese, other - He is receiving oxygen via nasal cannula Head exam: PRESENT: atraumatic, normocephalic Eye exam: PRESENT: conjunctiva pink, EOMI, PERRLA. ABSENT: scleral icterus Ear exam: PRESENT: normal external ear exam Mouth exam: PRESENT: moist, tongue midline Neck exam: ABSENT: carotid bruit, JVD, lymphadenopathy, thyromegaly Respiratory exam: PRESENT: decreased breath sounds - He is quite diminished bilaterally with crackles in the lower bases bilaterally. ABSENT: rales, rhonchi, wheezes Cardiovascular exam: PRESENT: RRR. ABSENT: diastolic murmur, rubs, systolic murmur Pulses: PRESENT: normal dorsalis pedis pul GI/Abdominal exam: PRESENT: other - Is morbidly obese. Firm. Yesterday he had presacral edema and this seems to have resolved. Rectal exam: PRESENT: deferred Extremities exam: PRESENT: full ROM. ABSENT: calf tenderness, clubbing, pedal edema Musculoskeletal exam: PRESENT: ambulatory Neurological exam: PRESENT: alert, awake, oriented to person, oriented to place , oriented to time, oriented to situation, CN II-XII grossly intact. ABSENT: motor sensory deficit Psychiatric exam: PRESENT: appropriate affect, normal mood. ABSENT: homicidal ideation, suicidal ideation Skin exam: PRESENT: dry, intact, warm. ABSENT: cyanosis, rash Results Laboratory Results: 03/02/18 07:55 03/02/18 07:55 03/02/18 03/02/18 07:55 07:55 WBC 12.0 H RBC 3.78 L Hgb 9.9 L Hct 31.1 L MCV 82 MCH 26.2 L MCHC 31.8 L RDW 14.9 H Plt Count 253 Seg Neutrophils % 78.8 H Lymphocytes % 7.8 L Monocytes % 12.0 Eosinophils % 0.9 Basophils % 0.5 Absolute Neutrophils 9.4 H Absolute Lymphocytes 0.9 Absolute Monocytes 1.4 Absolute Eosinophils 0.1 Absolute Basophils 0.1 Sodium 144.0 Potassium 3.6 Chloride 92 L Carbon Dioxide 43 H* Anion Gap 9 BUN 18 Creatinine 0.99 Est GFR ( Amer) > 60 Est GFR (Non-Af Amer) > 60 Glucose 115 H Calcium 8.6 Magnesium 1.8 02/27/18 02/28/18 02/28/18 23:10 05:12 11:30 Troponin I < 0.012 < 0.012 < 0.012 NT-Pro-B Natriuret Pep 03/02/18 07:55 Troponin I NT-Pro-B Natriuret Pep 120 Impressions: Chest X-Ray 02/27/18 16:41 IMPRESSION: Bilateral pleural effusions right greater than left and right basilar opacities. No obvious congestive failure. Assessment & Plan - Diagnosis (1) Acute and chronic respiratory failure Qualifiers: Respiratory failure complication: hypoxia and hypercapnia Qualified Code(s) : J96.21 - Acute and chronic respiratory failure with hypoxia; J96.22 - Acute and chronic respiratory failure with hypercapnia; J96.22 - Acute and chronic respiratory failure with hypercapnia; J96.22 - Acute and chronic respiratory failure with hypercapnia Is this a current diagnosis for this admission?: Yes Plan: Resolving. This is due to an acute congestive heart failure exacerbation. He is back to his baseline oxygen requirements. (2) Acute on chronic diastolic CHF (congestive heart failure) Is this a current diagnosis for this admission?: Yes Plan: Continue 40 mg of IV Lasix twice daily. He did have a 2D echocardiogram performed today. The results are not ready have not been have not been transcribed as of the time of this dictation. He does follow for all of his multiple issues at the [facility]. (3) Aortic stenosis Qualifiers: Cardiac valve disease etiology: nonrheumatic Qualified Code(s): I35.0 - Nonrheumatic aortic (valve) stenosis Is this a current diagnosis for this admission?: Yes Plan: The patient follows at the [facility]. An echocardiogram has been performed but not yet read (4) COPD (chronic obstructive pulmonary disease) Qualifiers: COPD type: unspecified COPD Qualified Code(s): J44.9 - Chronic obstructive pulmonary disease, unspecified Is this a current diagnosis for this admission?: No Plan: No evidence of acute exacerbation (5) Ventricular arrhythmia Is this a current diagnosis for this admission?: Yes Plan: The patient will remain on a remote monitor. Currently in a sinus rhythm and rate controlled. (6) Anasarca Is this a current diagnosis for this admission?: Yes Plan: Repeat echocardiogram is pending. Continue IV diuresis. (7) Mitral regurgitation Qualifiers: Cardiac valve disease etiology: nonrheumatic Qualified Code(s): I34.0 - Nonrheumatic mitral (valve) insufficiency Is this a current diagnosis for this admission?: Yes Plan: Again he follows with the [facility]. (8) Tobacco dependence Is this a current diagnosis for this admission?: Yes Plan: Certainly would be in his best interest to quit smoking (9) Morbid obesity Is this a current diagnosis for this admission?: Yes Plan: Dietary discretion is advised (10) Anemia Is this a current diagnosis for this admission?: Yes Plan: He has a microcytic anemia. He follows closely with the [facility]. further workup can be obtained as an outpatient. I will obtain an anemia panel. He may benefit from IV iron (11) Full code status Is this a current diagnosis for this admission?: Yes - Time Time Spent with patient: 25-34 minutes - Inpatient Certification Medical Necessity: Other - Inpatient hospitalization remains necessary for IV diuresis. The patient still has significant lower extremity edema. He is requiring parenteral Lasix. Timing of disposition will be determined by his clinical course
[2018-03-03] MEDS: FUROSEMIDE INJ/PF 40 MG/4 ML SDV IV SCH (05:36)
[2018-03-03 06:09] LABS: ABSOLUTE BASOPHILS # (AUTO) 0.1 10^3/uL (0.0-0.2); ABSOLUTE EOSINOPHILS # (AUTO) 0.1 10^3/uL (0.0-0.6); ABSOLUTE LYMPHOCYTES (AUTO) 1.1 10^3/uL (0.5-4.7); ABSOLUTE MONOCYTES (AUTO) 1.4 10^3/uL (0.1-1.4); ABSOLUTE NEUT (AUTO) 9.4 10^3/uL (1.7-8.2); ABSOLUTE RETICS # 0.061 10^6/uL (0.028-0.122); BASOPHILS % (AUTO) 0.5 % (0-2); HEMATOCRIT 30.2 % (37.9-51.0); HEMOGLOBIN 9.7 g/dL (13.5-17.0); LYMPHOCYTES % (AUTO) 9.3 % (13-45); MEAN CORPUSCULAR HEMOGLOBIN 26.3 pg (27.0-33.4); MEAN CORPUSCULAR HGB CONC 32.1 g/dL (32.0-36.0); MEAN CORPUSCULAR VOLUME 82 fl (80-97); MONOCYTES % (AUTO) 11.8 % (3-13); PLATELET COUNT 241 10^3/uL (150-450); RED BLOOD COUNT 3.69 10^6/uL (4.35-5.55); RETICULOCYTE COUNT (AUTO) 1.65 % (0.66-2.85); SEGMENTED NEUTROPHILS % (AUTO) 77.4 % (42-78); TOTAL CELLS COUNTED % (AUTO) 100 %; WHITE BLOOD COUNT 12.2 10^3/uL (4.0-10.5)
[2018-03-03 06:27] LABS: BLOOD UREA NITROGEN 22 mg/dL (7-20); CALCIUM 8.6 mg/dL (8.4-10.2); CHLORIDE 94 mmol/L (98-107); GLUCOSE 117 mg/dL (75-110); POTASSIUM 3.8 mmol/L (3.6-5.0); SODIUM 143.4 mmol/L (137-145)
[2018-03-03 06:40] LABS: ANION GAP 4 (5-19); CARBON DIOXIDE 45 mmol/L (22-30)
[2018-03-03 07:34] LABS: FOLATE > 20.00 ng/mL (>2.76)
[2018-03-03] MEDS: FLUTICASONE/SALMETEROL DISKUS 250-50 MCG/DOSE IH SCH ×2 (09:14→21:52)
[2018-03-03] MEDS: DRONEDARONE HYDROCHLORIDE 400 MG TABLET PO SCH ×2 (09:14→21:52)
[2018-03-03] MEDS: VERAPAMIL HCL 120 MG TABLET PO SCH ×2 (09:14→21:52)
[2018-03-03] MEDS: RIVAROXABAN 10 MG TABLET PO SCH (09:15)
[2018-03-03] MEDS ORDERED: ACETAMINOPHEN 325 MG TABLET PO ONE (09:26)
--- NOTE | 2018-03-03 09:45 | XCELERA REPORT ---
[address] [address] Transthoracic Echocardiogram Report Name: STONE GROVE JR Age: 73 yrs Gender: Male : 1945 Patient Status: Inpatient Patient Location: [address] [place] [address] Study Date: 03/02/2018 01:44 PM Procedure: A complete two-dimensional transthoracic echocardiogram was performed (2D, M-mode, spectral and color flow Doppler). The study was technically difficult with many images being suboptimal in quality. Reason For Study: chf Ordering Physician: MINISTERIO ESTRADA Performed By: Fannie Stewart Interpretation Summary The study was technically difficult with many images being suboptimal in quality. The left ventricular ejection fraction is normal. Doppler measurements suggest pseudonormalized left ventricular relaxation, which is associated with grade II/IV or mild to moderate diastolic dysfunction There is borderline concentric left ventricular hypertrophy. The left ventricle is grossly normal size. Regional wall motion abnormalities cannot be excluded due to limited visualization. Right ventricular function cannot be assessed due to poor image quality. The right atrium is normal. The left atrium is mildly dilated. There is no mitral valve stenosis. There is a trace amount of mitral regurgitation No aortic regurgitation is present. There is no aortic valve stenosis There is a trace amount of tricuspid regurgitation Tricuspid regurgitation jet envelope not well defined to measure RV systolic pressure accurately. The aortic root is not well visualized. The inferior vena cava was not well visualized There is no pericardial effusion. MMode/2D Measurements & Calculations RVDd: 4.2 cm LVIDd: 5.3 cm FS: 39.6 % IVSd: 1.0 cm LVIDs: 3.2 cm EDV(Teich): 136.1 ml LVPWd: 1.1 cm ESV(Teich): 41.2 ml EF(Teich): 69.7 % Doppler Measurements & Calculations MV E max olesya: MV dec slope: Ao V2 max: PA V2 max: 139.6 cm/sec 576.8 cm/sec2 140.9 cm/sec 116.0 cm/sec MV A max olesya: MV dec time: Ao max PG: PA max P.7 cm/sec 0.24 sec 8.0 mmHg 5.4 mmHg MV E/A: 1.1 TR max olesya: 232.8 cm/sec TR max P.7 mmHg Left Ventricle The left ventricle is grossly normal size. There is borderline concentric left ventricular hypertrophy. The left ventricular ejection fraction is normal. Doppler measurements suggest pseudonormalized left ventricular relaxation, which is associated with grade II/IV or mild to moderate diastolic dysfunction. Regional wall motion abnormalities cannot be excluded due to limited visualization. Right Ventricle The right ventricle is grossly normal size. Right ventricular function cannot be assessed due to poor image quality. Atria The right atrium is normal. The left atrium is mildly dilated. Mitral Valve The mitral valve is not well visualized. There is no mitral valve stenosis. There is a trace amount of mitral regurgitation. Aortic Valve The aortic valve is not well visualized secondary to technical limitations. There is no aortic valve stenosis. No aortic regurgitation is present. Tricuspid Valve The tricuspid valve is not well visualized secondary to technical limitations. There is no tricuspid stenosis. There is a trace amount of tricuspid regurgitation. Tricuspid regurgitation jet envelope not well defined to measure RV systolic pressure accurately. Pulmonic Valve The pulmonic valve is not well visualized. Great Vessels The aortic root is not well visualized. The inferior vena cava was not well visualized. Effusions There is no pericardial effusion. : MINISTERIO ESTRADA > Mal Machado
[2018-03-03] MEDS ORDERED: FUROSEMIDE INJ/PF 40 MG/4 ML SDV IV SCH (10:00)
[2018-03-03] MEDS: TAMSULOSIN HCL 0.4 MG CAP.SR.24H PO SCH (11:26)
--- NOTE | 2018-03-03 20:45 | PDOC PROGRESS REPORT ---
Subjective Progress Note for:: 03/03/18 Subjective:: feels better, breathing fine, leg swelling improved, afebrile, BM today, eating fine, ambulating in room ok with walker Reason For Visit: ACUTE ON CHRONIC DIASTOLIC HEART FAILURE Physical Exam Vital Signs: Temp Pulse Resp BP Pulse Ox 98.0 F 60 20 106/61 97 03/03/18 12:07 03/03/18 14:00 03/03/18 12:07 03/03/18 12:07 03/03/18 12:07 Intake & Output 03/02/18 03/03/18 03/04/18 06:59 06:59 06:59 Intake Total 592 1451 303 Output Total 2575 3450 930 -1982 -1998 Weight 131.9 kg 131.9 kg General appearance: PRESENT: no acute distress, cooperative, morbidly obese Head exam: PRESENT: atraumatic, normocephalic Eye exam: ABSENT: conjunctival injection, scleral icterus Mouth exam: PRESENT: moist, tongue midline Respiratory exam: PRESENT: decreased breath sounds, rales, unlabored. ABSENT: rhonchi, wheezes Cardiovascular exam: PRESENT: RRR, systolic murmur GI/Abdominal exam: PRESENT: normal bowel sounds, soft. ABSENT: distended, guarding, tenderness Rectal exam: PRESENT: deferred Gentrourinary exam: PRESENT: indwelling catheter Extremities exam: PRESENT: +1 edema Neurological exam: PRESENT: alert, awake, oriented to person, oriented to place , oriented to situation, CN II-XII grossly intact Psychiatric exam: PRESENT: appropriate affect. ABSENT: anxious Skin exam: PRESENT: dry, warm Results Laboratory Results: 03/03/18 05:25 03/03/18 05:25 03/03/18 03/03/18 05:25 05:25 WBC 12.2 H RBC 3.69 L Hgb 9.7 L Hct 30.2 L MCV 82 MCH 26.3 L MCHC 32.1 RDW 15.0 H Plt Count 241 Seg Neutrophils % 77.4 Lymphocytes % 9.3 L Monocytes % 11.8 Eosinophils % 1.0 Basophils % 0.5 Absolute Neutrophils 9.4 H Absolute Lymphocytes 1.1 Absolute Monocytes 1.4 Absolute Eosinophils 0.1 Absolute Basophils 0.1 Retic Count (auto) 1.65 Absolute Retic 0.061 Sodium 143.4 Potassium 3.8 Chloride 94 L Carbon Dioxide 45 H* Anion Gap 4 L BUN 22 H Creatinine 0.98 Est GFR ( Amer) > 60 Est GFR (Non-Af Amer) > 60 Glucose 117 H Calcium 8.6 Magnesium 1.9 Iron 18.0 L TIBC 362 % Saturation 5 Ferritin 36.20 Vitamin B12 663.0 Folate > 20.00 02/27/18 02/28/18 02/28/18 23:10 05:12 11:30 Troponin I < 0.012 < 0.012 < 0.012 NT-Pro-B Natriuret Pep 03/02/18 07:55 Troponin I NT-Pro-B Natriuret Pep 120 Impressions: Chest X-Ray 02/27/18 16:41 IMPRESSION: Bilateral pleural effusions right greater than left and right basilar opacities. No obvious congestive failure. Assessment & Plan - Diagnosis (1) Acute and chronic respiratory failure Qualifiers: Respiratory failure complication: hypoxia and hypercapnia Qualified Code(s) : J96.21 - Acute and chronic respiratory failure with hypoxia; J96.22 - Acute and chronic respiratory failure with hypercapnia; J96.22 - Acute and chronic respiratory failure with hypercapnia; J96.22 - Acute and chronic respiratory failure with hypercapnia Is this a current diagnosis for this admission?: Yes Plan: Much improved. Patient is close to baseline. Oxygen requirement back to baseline. This is secondary to CHF exacerbation. (2) Acute on chronic diastolic CHF (congestive heart failure) Is this a current diagnosis for this admission?: Yes Plan: Patient has been diuresed with Lasix 40 mg IV twice daily. CO2 is increasing and renal function slightly worsened. I am holding diuresis for possible contraction alkalosis. Will recheck labs in the morning and either hold Lasix altogether or restart him on his home dose of oral Lasix. (3) Morbid obesity Is this a current diagnosis for this admission?: Yes Plan: Weight loss counseling has been performed. (4) Tobacco dependence Is this a current diagnosis for this admission?: Yes (5) Aortic stenosis Qualifiers: Cardiac valve disease etiology: nonrheumatic Qualified Code(s): I35.0 - Nonrheumatic aortic (valve) stenosis Is this a current diagnosis for this admission?: Yes Plan: Stable, followed at [facility] (6) Ventricular arrhythmia Is this a current diagnosis for this admission?: Yes Plan: Stable, continue antiarrhythmic,'s followed at the [facility] - Time Time Spent with patient: 15-24 minutes Anticipated discharge: Home - Inpatient Certification Based on my medical assessment, after consideration of the patient's comorbidities, presenting symptoms, or acuity I expect that the services needed warrant INPATIENT care.: Yes I certify that my determination is in accordance with my understanding of Medicare's requirements for reasonable and necessary INPATIENT services [42 CFR 412.3e].: Yes Medical Necessity: Need Close Monitoring Due to Risk of Patient Decompensation
[2018-03-03] MEDS: TRAMADOL HCL 50 MG TABLET PO PRN (21:50)
[2018-03-04 01:07] LABS: APPEARANCE,URINE CLEAR; BILIRUBIN,URINE NEGATIVE (NEGATIVE); COLOR,URINE YELLOW; GLUCOSE, URINE NEGATIVE (NEGATIVE); KETONES,URINE NEGATIVE (NEGATIVE); LEUKOCYTE ESTERASE,URINE TRACE (NEGATIVE); NITRITE,URINE NEGATIVE (NEGATIVE); PROTEIN,URINE NEGATIVE (NEGATIVE); URINE SPECIFIC GRAVITY 1.016
[2018-03-04 06:30] LABS: HEMATOCRIT 30.5 % (37.9-51.0); HEMOGLOBIN 9.7 g/dL (13.5-17.0); MEAN CORPUSCULAR HGB CONC 31.7 g/dL (32.0-36.0); MEAN CORPUSCULAR VOLUME 82 fl (80-97); PLATELET COUNT 263 10^3/uL (150-450); RED BLOOD COUNT 3.71 10^6/uL (4.35-5.55); RED CELL DISTRIBUTION WIDTH 14.7 % (11.5-14.0); WHITE BLOOD COUNT 11.9 10^3/uL (4.0-10.5)
[2018-03-04 06:44] LABS: ANION GAP 10 (5-19); BLOOD UREA NITROGEN 21 mg/dL (7-20); CALCIUM 8.7 mg/dL (8.4-10.2); CARBON DIOXIDE 39 mmol/L (22-30); CHLORIDE 93 mmol/L (98-107); GLUCOSE 124 mg/dL (75-110); POTASSIUM 3.6 mmol/L (3.6-5.0); SODIUM 141.6 mmol/L (137-145)
[2018-03-04] MEDS ORDERED: (PENDING PHARMACY ID) (Multivit-Min/Fa/Lycopen/Lutein [Centrum Silver Men Tablet] 1 EACH) PO SCH (10:00)
[2018-03-04] MEDS ORDERED: FUROSEMIDE 40 MG TABLET PO SCH (10:00)
[2018-03-04] MEDS: DRONEDARONE HYDROCHLORIDE 400 MG TABLET PO SCH ×2 (11:12→21:01)
[2018-03-04] MEDS: FLUTICASONE/SALMETEROL DISKUS 250-50 MCG/DOSE IH SCH ×2 (11:12→21:01)
[2018-03-04] MEDS: FUROSEMIDE 20 MG TABLET PO SCH (11:12)
[2018-03-04] MEDS: MULTIVITAMIN TABLET PO SCH (11:12)
[2018-03-04] MEDS: VERAPAMIL HCL 120 MG TABLET PO SCH ×2 (11:13→21:01)
[2018-03-04] MEDS: RIVAROXABAN 10 MG TABLET PO SCH (11:13)
[2018-03-04] MEDS: TAMSULOSIN HCL 0.4 MG CAP.SR.24H PO SCH (11:14)
[2018-03-04] MEDS: TRAMADOL HCL 50 MG TABLET PO PRN (16:14)
--- NOTE | 2018-03-04 19:58 | PDOC PROGRESS REPORT ---
Subjective Progress Note for:: 03/04/18 Subjective:: Patient is breathing fine today. No cough shortness of breath fever or chills. He has acute onset distal right arm pain after having his blood pressure taken. It is causing him weakness and inability to lift his arm over his other height. He is dependent upon his walker and this is in his right hand, he is right arm dominant. Urinating well since Garcia catheter came out. No constipation. Reason For Visit: ACUTE ON CHRONIC DIASTOLIC HEART FAILURE Physical Exam Vital Signs: Temp Pulse Resp BP Pulse Ox 98.3 F 60 20 114/63 96 03/04/18 16:01 03/04/18 16:01 03/04/18 16:01 03/04/18 16:01 03/04/18 16:01 Intake & Output 03/03/18 03/04/18 03/05/18 06:59 06:59 06:59 Intake Total 1451 574 835 Output Total 3450 2530 835 Weight 131.9 kg General appearance: PRESENT: no acute distress, cooperative, morbidly obese Head exam: PRESENT: atraumatic, normocephalic Eye exam: ABSENT: conjunctival injection, scleral icterus Mouth exam: PRESENT: moist, tongue midline Respiratory exam: PRESENT: clear to auscultation gregorio, decreased breath sounds, unlabored. ABSENT: rales, rhonchi, wheezes Cardiovascular exam: PRESENT: RRR, systolic murmur Pulses: PRESENT: normal radial pulses GI/Abdominal exam: PRESENT: normal bowel sounds, soft. ABSENT: distended, firm , guarding, tenderness Rectal exam: PRESENT: deferred Gentrourinary exam: ABSENT: indwelling catheter Extremities exam: PRESENT: +1 edema Musculoskeletal exam: PRESENT: other - Right distal arm without evidence of acute trauma. No edema. No bruising. No skin tearing. On exam patient cannot lift his arm above the level of his shoulder without significant pain. Neurological exam: PRESENT: alert, awake, oriented to person, oriented to place , oriented to situation, CN II-XII grossly intact Psychiatric exam: PRESENT: appropriate affect. ABSENT: anxious Skin exam: PRESENT: dry, warm, other - Distal legs with evidence of chronic venous stasis changes Results Laboratory Results: 03/04/18 05:31 03/04/18 05:31 03/04/18 03/04/18 03/04/18 00:50 05:31 05:31 WBC 11.9 H RBC 3.71 L Hgb 9.7 L Hct 30.5 L MCV 82 MCH 26.0 L MCHC 31.7 L RDW 14.7 H Plt Count 263 Sodium 141.6 Potassium 3.6 Chloride 93 L Carbon Dioxide 39 H Anion Gap 10 BUN 21 H Creatinine 1.01 Est GFR ( Amer) > 60 Est GFR (Non-Af Amer) > 60 Glucose 124 H Calcium 8.7 Urine Color YELLOW Urine Appearance CLEAR Urine pH 8.0 Ur Specific Goodells 1.016 Urine Protein NEGATIVE Urine Glucose (UA) NEGATIVE Urine Ketones NEGATIVE Urine Blood SMALL H Urine Nitrite NEGATIVE Ur Leukocyte Esterase TRACE H Urine WBC (Auto) 6 Urine RBC (Auto) 17 02/27/18 02/28/18 02/28/18 23:10 05:12 11:30 Troponin I < 0.012 < 0.012 < 0.012 NT-Pro-B Natriuret Pep 03/02/18 07:55 Troponin I NT-Pro-B Natriuret Pep 120 Impressions: Chest X-Ray 02/27/18 16:41 IMPRESSION: Bilateral pleural effusions right greater than left and right basilar opacities. No obvious congestive failure. Assessment & Plan - Diagnosis (1) Acute kidney injury Is this a current diagnosis for this admission?: Yes Plan: Possibly related to aggressive diuresis. Lasix IV was held yesterday and his renal function is improving. Will recheck again tomorrow to assure renal function returning to normal. We will continue his oral Lasix. (2) Acute and chronic respiratory failure Qualifiers: Respiratory failure complication: hypoxia and hypercapnia Qualified Code(s) : J96.21 - Acute and chronic respiratory failure with hypoxia; J96.22 - Acute and chronic respiratory failure with hypercapnia; J96.22 - Acute and chronic respiratory failure with hypercapnia; J96.22 - Acute and chronic respiratory failure with hypercapnia Is this a current diagnosis for this admission?: Yes Plan: Patient appears to be back to his baseline. Followed by [place] [facility]. Diastolic dysfunction on his echocardiogram. Does not know if that is a new diagnosis and will discuss with his cassandra developer. (3) Acute on chronic diastolic CHF (congestive heart failure) Is this a current diagnosis for this admission?: Yes Plan: Exacerbation resolved. We will continue patient on his daily Lasix 20 mg. Per echocardiogram he has a normal ejection fraction. (4) Right arm pain Is this a current diagnosis for this admission?: Yes Plan: Patient's right arm pain has been worsening today. There seems to be a little bit of edema developing. I have ordered a CT scan of the arm with out contrast to further evaluate. His right arm and in and walker dependent. Physical therapy consult has been ordered. (5) Morbid obesity Is this a current diagnosis for this admission?: Yes Plan: Weight loss would help with his chronic medical problems. Will discuss if patient is open to this. (6) Tobacco dependence Is this a current diagnosis for this admission?: Yes (7) Aortic stenosis Qualifiers: Cardiac valve disease etiology: nonrheumatic Qualified Code(s): I35.0 - Nonrheumatic aortic (valve) stenosis Is this a current diagnosis for this admission?: Yes Plan: Patient followed closely by his [place] cassandra developer. (8) Ventricular arrhythmia Is this a current diagnosis for this admission?: Yes Plan: Stable on his antiarrhythmic. We will continue his dronedarone and verapamil. Of note patient has pacemaker in place. - Time Time Spent with patient: 25-34 minutes Medications reviewed and adjusted accordingly: Yes - Inpatient Certification Based on my medical assessment, after consideration of the patient's comorbidities, presenting symptoms, or acuity I expect that the services needed warrant INPATIENT care.: Yes I certify that my determination is in accordance with my understanding of Medicare's requirements for reasonable and necessary INPATIENT services [42 CFR 412.3e].: Yes Medical Necessity: Risk of Complication if Not Cared For in Hospital
[2018-03-04] MEDS ORDERED: LIDOCAINE 5% (700 MG) TRANSDERMAL ADH..PATCH ONE (21:05)
--- NOTE | 2018-03-04 23:05 | RADIOLOGY REPORT (SQ) ---
EXAM DESCRIPTION: CT RT UPPER EXTREMITY WITHOUT COMPLETED DATE/TIME: 03/04/2018 8:59 pm REASON FOR STUDY: right arm injury and acute pain COMPARISON: None. TECHNIQUE: Axial imaging performed through the rightshoulder with reformatted oblique coronal and ob lique sagittal imaging windowed for bone and soft tissues. All CT scanners at this facility use dose modulation, iterative reconstruction, and/or weight based d osing when appropriate to reduce radiation dose to as low as reasonably achievable (ALARA). [facility]: Dose Right [facility]: CareDose [facility]: Dose Right [facility]: Teradose 4D [facility]: Smart Tomorrow RADIATION DOSE: CT Rad equipment meets quality standard of care and radiation dose reduction techniq ues were employed. CTDIvol: 12.4 mGy. DLP: 252 mGy-cm. mGy. LIMITATIONS: None. FINDINGS: There is no acute fracture or dislocation. Degenerative changes are seen at the acromiocl avicular and glenohumeral joints. The soft tissues are unremarkable. Respiratory motion artifact at the right lung. Moderate pleural effusion at the visualized right denilson g with adjacent ground-glass opacity. There is a linear lucency at the posterior aspect of the right 6th rib. IMPRESSION: 1. No acute fracture at the right shoulder. Degenerative changes. 2. Moderate right-sided pleural effusion with adjacent ground-glass opacity, may be secondary to pulm onary edema, atelectasis or pneumonia. 3. Linear lucency at the posterior aspect of the right 6th rib, may represent a nondisplaced fractur e. Please correlate with point tenderness. TECHNICAL DOCUMENTATION: JOB ID: [id number] [place]- Quality ID # 436: Final reports with documentation of one or more dose reduction techniques (e.g., Au tomated exposure control, adjustment of the mA and/or kV according to patient size, use of iterative reconstruction technique) 2010 [employer]- All Rights Reserved Reading location - IP/workstation name: [email or web address]
[2018-03-05] MEDS: VERAPAMIL HCL 120 MG TABLET PO SCH ×2 (09:40→22:49)
[2018-03-05] MEDS: MULTIVITAMIN TABLET PO SCH (09:41)
[2018-03-05] MEDS: DRONEDARONE HYDROCHLORIDE 400 MG TABLET PO SCH ×2 (09:41→22:49)
[2018-03-05] MEDS: FLUTICASONE/SALMETEROL DISKUS 250-50 MCG/DOSE IH SCH ×2 (09:41→22:49)
[2018-03-05] MEDS: FUROSEMIDE 20 MG TABLET PO SCH (09:41)
[2018-03-05] MEDS: RIVAROXABAN 10 MG TABLET PO SCH (09:42)
[2018-03-05 10:35] LABS: HEMATOCRIT 29.8 % (37.9-51.0); HEMOGLOBIN 9.5 g/dL (13.5-17.0); MEAN CORPUSCULAR HEMOGLOBIN 26.1 pg (27.0-33.4); MEAN CORPUSCULAR HGB CONC 31.8 g/dL (32.0-36.0); MEAN CORPUSCULAR VOLUME 82 fl (80-97); PLATELET COUNT 255 10^3/uL (150-450); RED BLOOD COUNT 3.63 10^6/uL (4.35-5.55); RED CELL DISTRIBUTION WIDTH 14.6 % (11.5-14.0); WHITE BLOOD COUNT 11.2 10^3/uL (4.0-10.5)
[2018-03-05 10:53] LABS: BLOOD UREA NITROGEN 20 mg/dL (7-20); CALCIUM 8.7 mg/dL (8.4-10.2); CHLORIDE 93 mmol/L (98-107); GLUCOSE 129 mg/dL (75-110); POTASSIUM 3.5 mmol/L (3.6-5.0); SODIUM 141.2 mmol/L (137-145)
[2018-03-05 11:00] LABS: ANION GAP 12 (5-19); CARBON DIOXIDE 36 mmol/L (22-30)
[2018-03-05] MEDS: TAMSULOSIN HCL 0.4 MG CAP.SR.24H PO SCH (12:02)
--- NOTE | 2018-03-05 17:27 | RADIOLOGY REPORT (SQ) ---
EXAM DESCRIPTION: VENOUS UNILATERAL UPPER COMPLETED DATE/TIME: 03/05/2018 5:13 pm REASON FOR STUDY: right arm edema and pain COMPARISON: None. TECHNIQUE: Dynamic and static plascencia scale and color images acquired of the right arm venous system. S elected spectral images acquired with additional compression and augmentation maneuvers. The contrala teral subclavian vein and internal jugular vein were also imaged. Images stored on PACS. LIMITATIONS: None. FINDINGS: INTERNAL JUGULAR VEIN: Normal phasicity, compression, augmentation. No visualized echogeni c material on plascencia scale. No defects on color images. Comparison opposite side normal. SUBCLAVIAN VEIN: Normal compression, augmentation. No visualized echogenic material on plascencia scale. No defects on color images. AXILLARY VEIN: Normal compression, augmentation. No visualized echogenic material on plascencia scale. No d efects on color images. BRACHIAL VEIN: Normal compression, augmentation. No visualized echogenic material on plascencia scale. No d efects on color images. BASILIC VEIN: Normal compression, augmentation. No visualized echogenic material on plascencia scale. No de fects on color images. CEPHALIC VEIN: Normal compression, augmentation. No visualized echogenic material on plascencia scale. No d efects on color images. OTHER: No other significant finding. CONTRALATERAL SUBCLAVIAN VEIN AND INTERNAL JUGULAR VEIN: Normal phasicity, compression and augmentation. No visualized echogenic material on plascencia scale. No de fects on color images. IMPRESSION: NO EVIDENCE DVT OR SVT IN THE RIGHT ARM. TECHNICAL DOCUMENTATION: JOB ID: [id number] [employer]- All Rights Reserved Reading location - IP/workstation name: [email or web address]
--- NOTE | 2018-03-05 20:10 | PDOC PROGRESS REPORT ---
Subjective Progress Note for:: 03/05/18 Subjective:: Patient is generally doing better. He is urinating without difficulty. His breathing is back to baseline and he is on his 3 L of nasal cannula oxygen. Is urinating and stooling without difficulty. He generally and at baseline is very weak and uses a walker at home. He has a neighbor come in to help him with cooking. The patient unfortunately yesterday had significant pain while receiving his blood pressure measurement, from a tight cuff, on the right arm. The pain is improved today however there does appear to be bruising and some edema that is worsening. The patient is anticoagulated with Xarelto and so I feel that it is most prudent to watch him here in the hospital until the bleeding stabilizes. He agrees. Reason For Visit: ACUTE ON CHRONIC DIASTOLIC HEART FAILURE Physical Exam Vital Signs: Temp Pulse Resp BP Pulse Ox 98.2 F 54 L 19 126/54 H 95 03/05/18 15:33 03/05/18 15:33 03/05/18 15:33 03/05/18 15:33 03/05/18 15:33 Intake & Output 03/04/18 03/05/18 03/06/18 06:59 06:59 06:59 Intake Total 574 1320 602 Output Total 2530 Balance -1956 1320 602 General appearance: PRESENT: cooperative, morbidly obese Head exam: PRESENT: atraumatic, normocephalic Eye exam: ABSENT: conjunctival injection, scleral icterus Mouth exam: PRESENT: moist, tongue midline Respiratory exam: PRESENT: decreased breath sounds, rales, unlabored. ABSENT: rhonchi, wheezes Cardiovascular exam: PRESENT: RRR, systolic murmur Pulses: PRESENT: normal radial pulses GI/Abdominal exam: PRESENT: normal bowel sounds, soft, tenderness. ABSENT: distended, firm, guarding Rectal exam: PRESENT: deferred Extremities exam: PRESENT: pedal edema Neurological exam: PRESENT: alert, awake, oriented to person, oriented to place , oriented to situation, CN II-XII grossly intact Psychiatric exam: PRESENT: appropriate affect. ABSENT: anxious Skin exam: PRESENT: dry, warm, other - Ecchymoses around the right elbow, edema Results Laboratory Results: 03/05/18 10:12 03/05/18 10:12 03/05/18 03/05/18 10:12 10:12 WBC 11.2 H RBC 3.63 L Hgb 9.5 L Hct 29.8 L MCV 82 MCH 26.1 L MCHC 31.8 L RDW 14.6 H Plt Count 255 Sodium 141.2 Potassium 3.5 L Chloride 93 L Carbon Dioxide 36 H Anion Gap 12 BUN 20 Creatinine 0.83 Est GFR ( Amer) > 60 Est GFR (Non-Af Amer) > 60 Glucose 129 H Calcium 8.7 02/27/18 02/28/18 02/28/18 23:10 05:12 11:30 Troponin I < 0.012 < 0.012 < 0.012 NT-Pro-B Natriuret Pep 03/02/18 07:55 Troponin I NT-Pro-B Natriuret Pep 120 Impressions: Chest X-Ray 02/27/18 16:41 IMPRESSION: Bilateral pleural effusions right greater than left and right basilar opacities. No obvious congestive failure. Upper Extremity CT 03/04/18 00:00 IMPRESSION: 1. No acute fracture at the right shoulder. Degenerative changes. 2. Moderate right-sided pleural effusion with adjacent ground-glass opacity, may be secondary to pulmonary edema, atelectasis or pneumonia. 3. Linear lucency at the posterior aspect of the right 6th rib, may represent a nondisplaced fracture. Please correlate with point tenderness. Venous Doppler Study 03/05/18 00:00 IMPRESSION: NO EVIDENCE DVT OR SVT IN THE RIGHT ARM. Assessment & Plan - Diagnosis (1) Acute kidney injury Is this a current diagnosis for this admission?: Yes Plan: Resolved. Secondary to aggressive diuresis likely, and now patient is doing well from this perspective. (2) Acute and chronic respiratory failure Qualifiers: Respiratory failure complication: hypoxia and hypercapnia Qualified Code(s) : J96.21 - Acute and chronic respiratory failure with hypoxia; J96.22 - Acute and chronic respiratory failure with hypercapnia; J96.22 - Acute and chronic respiratory failure with hypercapnia; J96.22 - Acute and chronic respiratory failure with hypercapnia Is this a current diagnosis for this admission?: Yes Plan: Patient is back to baseline, he had acute respiratory failure related to heart failure exacerbation. His chronic respiratory failure is multifactorial with obstructive sleep apnea, obesity, heart failure and possibly other contributing etiologies. He is followed closely at the [facility]. (3) Acute on chronic diastolic CHF (congestive heart failure) Is this a current diagnosis for this admission?: Yes Plan: Patient has resolved from the acute perspective. He is back on his Lasix 20 mg p.o. daily. I replaced his potassium today. (4) Right arm pain Is this a current diagnosis for this admission?: Yes Plan: Now with evident ecchymoses. Yesterday CT scan did not show anything acute in the soft tissues. Today he has evident bruising and edema. Venous duplex did not show DVT or SVT. C secondary to the fact that he is on Xarelto I think it is prudent to keep him in the hospital until we know this bleeding has stabilized. (5) Morbid obesity Is this a current diagnosis for this admission?: Yes Plan: Did not discuss today (6) Tobacco dependence Is this a current diagnosis for this admission?: Yes Plan: Did not discuss today (7) Aortic stenosis Qualifiers: Cardiac valve disease etiology: nonrheumatic Qualified Code(s): I35.0 - Nonrheumatic aortic (valve) stenosis Is this a current diagnosis for this admission?: Yes Plan: Stable, patient is followed closely by his application services manager at the [facility]. (8) Ventricular arrhythmia Is this a current diagnosis for this admission?: Yes Plan: She is stable on his Vashti her own. We will continue telemetry. - Time Time Spent with patient: 25-34 minutes Medications reviewed and adjusted accordingly: Yes - Inpatient Certification Based on my medical assessment, after consideration of the patient's comorbidities, presenting symptoms, or acuity I expect that the services needed warrant INPATIENT care.: Yes I certify that my determination is in accordance with my understanding of Medicare's requirements for reasonable and necessary INPATIENT services [42 CFR 412.3e].: Yes Medical Necessity: Need Close Monitoring Due to Risk of Patient Decompensation, Risk of Complication if Not Cared For in Hospital
[2018-03-05] MEDS ORDERED: POTASSIUM CHLORIDE 10 MEQ CAPSULE.ER PO ONE (20:30)
[2018-03-06 05:31] LABS: HEMATOCRIT 30.2 % (37.9-51.0); HEMOGLOBIN 9.6 g/dL (13.5-17.0); MEAN CORPUSCULAR HEMOGLOBIN 26.1 pg (27.0-33.4); MEAN CORPUSCULAR HGB CONC 31.8 g/dL (32.0-36.0); MEAN CORPUSCULAR VOLUME 82 fl (80-97); PLATELET COUNT 272 10^3/uL (150-450); RED BLOOD COUNT 3.69 10^6/uL (4.35-5.55); RED CELL DISTRIBUTION WIDTH 14.5 % (11.5-14.0); WHITE BLOOD COUNT 12.2 10^3/uL (4.0-10.5)
[2018-03-06 05:56] LABS: ANION GAP 9 (5-19); BLOOD UREA NITROGEN 25 mg/dL (7-20); CALCIUM 8.7 mg/dL (8.4-10.2); CARBON DIOXIDE 38 mmol/L (22-30); CHLORIDE 94 mmol/L (98-107); GLUCOSE 138 mg/dL (75-110); POTASSIUM 3.7 mmol/L (3.6-5.0); SODIUM 140.7 mmol/L (137-145)
[2018-03-06] MEDS: FLUTICASONE/SALMETEROL DISKUS 250-50 MCG/DOSE IH SCH ×2 (09:48→22:27)
[2018-03-06] MEDS: MULTIVITAMIN TABLET PO SCH (09:48)
[2018-03-06] MEDS: FUROSEMIDE 20 MG TABLET PO SCH (09:49)
[2018-03-06] MEDS: RIVAROXABAN 10 MG TABLET PO SCH (09:49)
[2018-03-06] MEDS: DRONEDARONE HYDROCHLORIDE 400 MG TABLET PO SCH ×2 (09:49→22:29)
[2018-03-06] MEDS: VERAPAMIL HCL 120 MG TABLET PO SCH ×2 (09:49→22:28)
--- NOTE | 2018-03-06 12:18 | PDOC PROGRESS REPORT ---
Subjective Progress Note for:: 03/06/18 Subjective:: Patient was admitted with CHF exacerbation. Still with pain right arm. He feels the swelling is slightly worse on the redness worsening. This apparently started after he had blood pressure done and cuff was inflated very tightly. No tingling in fingers, arm not cold. CT, ultrasound unremarkable. Denies chest pain or shortness of breath or palpitations. Reason For Visit: ACUTE ON CHRONIC DIASTOLIC HEART FAILURE Physical Exam Vital Signs: Temp Pulse Resp BP Pulse Ox 98.6 F 77 19 127/64 H 97 03/06/18 07:40 03/06/18 07:40 03/06/18 07:40 03/06/18 09:49 03/06/18 07:40 Intake & Output 03/05/18 03/06/18 03/07/18 06:59 06:59 06:59 Intake Total 1320 843 Balance 1320 843 Weight 133 kg General appearance: PRESENT: cooperative, morbidly obese Head exam: PRESENT: atraumatic, normocephalic Eye exam: ABSENT: conjunctival injection, scleral icterus Mouth exam: PRESENT: moist, tongue midline Respiratory exam: PRESENT: decreased breath sounds, rales, unlabored. ABSENT: rhonchi, wheezes Cardiovascular exam: PRESENT: RRR, systolic murmur Pulses: PRESENT: normal radial pulses GI/Abdominal exam: PRESENT: normal bowel sounds, soft, tenderness. ABSENT: distended, firm, guarding Rectal exam: PRESENT: deferred Extremities exam: PRESENT: pedal edema; Neurological exam: PRESENT: alert, awake, oriented to person, oriented to place , oriented to situation, CN II-XII grossly intact Psychiatric exam: PRESENT: appropriate affect. ABSENT: anxious Skin exam: PRESENT: dry, warm, other - Ecchymoses around the right elbow with spreading erythema and warmth, edema present Results Laboratory Results: 03/06/18 04:56 03/06/18 04:56 03/06/18 03/06/18 04:56 04:56 WBC 12.2 H RBC 3.69 L Hgb 9.6 L Hct 30.2 L MCV 82 MCH 26.1 L MCHC 31.8 L RDW 14.5 H Plt Count 272 Sodium 140.7 Potassium 3.7 Chloride 94 L Carbon Dioxide 38 H Anion Gap 9 BUN 25 H Creatinine 0.96 Est GFR ( Amer) > 60 Est GFR (Non-Af Amer) > 60 Glucose 138 H Calcium 8.7 02/27/18 02/28/18 02/28/18 23:10 05:12 11:30 Troponin I < 0.012 < 0.012 < 0.012 NT-Pro-B Natriuret Pep 03/02/18 07:55 Troponin I NT-Pro-B Natriuret Pep 120 Impressions: Chest X-Ray 02/27/18 16:41 IMPRESSION: Bilateral pleural effusions right greater than left and right basilar opacities. No obvious congestive failure. Upper Extremity CT 03/04/18 00:00 IMPRESSION: 1. No acute fracture at the right shoulder. Degenerative changes. 2. Moderate right-sided pleural effusion with adjacent ground-glass opacity, may be secondary to pulmonary edema, atelectasis or pneumonia. 3. Linear lucency at the posterior aspect of the right 6th rib, may represent a nondisplaced fracture. Please correlate with point tenderness. Venous Doppler Study 03/05/18 00:00 IMPRESSION: NO EVIDENCE DVT OR SVT IN THE RIGHT ARM. Assessment & Plan - Plan Summary Plan Summary: (1) Acute and chronic respiratory failure Qualifiers: Respiratory failure complication: hypoxia and hypercapnia Qualified Code(s) : J96.21 - Acute and chronic respiratory failure with hypoxia; J96.22 - Acute and chronic respiratory failure with hypercapnia; J96.22 - Acute and chronic respiratory failure with hypercapnia; J96.22 - Acute and chronic respiratory failure with hypercapnia Is this a current diagnosis for this admission?: Yes Plan: Improved, he had acute respiratory failure related to heart failure exacerbation. His chronic respiratory failure is multifactorial with obstructive sleep apnea, obesity, heart failure and possibly other contributing etiologies. He is followed closely at the [facility]. (2) Acute on chronic diastolic CHF (congestive heart failure) Is this a current diagnosis for this admission?: Yes Plan: Improved. He is back on his Lasix 20 mg p.o. daily. (3) Right arm pain Is this a current diagnosis for this admission?: Yes Plan: Now with evident ecchymoses and worsening. CT scan did not show anything acute in the soft tissues. Venous duplex yesterday did not show DVT or SVT. Secondary to the fact that he is on Xarelto, will hold for two days in case some hematoma/bleeding component. Also, will institute trial of doxycycline 100 mg twice daily for possible cellulitis, in light of slightly increased WBC as well. Follow-up CBC, Chem-7 in a.m. (4) Acute kidney injury Is this a current diagnosis for this admission?: Yes Plan: Resolved. Secondary to aggressive diuresis likely, and now patient is doing well from this perspective. (5) Aortic stenosis Qualifiers: Cardiac valve disease etiology: nonrheumatic Qualified Code(s): I35.0 - Nonrheumatic aortic (valve) stenosis Is this a current diagnosis for this admission?: Yes Plan: Stable, patient is followed closely by his ager operator at the [facility]. (6) Ventricular arrhythmia Is this a current diagnosis for this admission?: Yes Plan: Sstable. We will continue telemetry.
[2018-03-06] MEDS ORDERED: DOXYCYCLINE HYCLATE 100 MG TABLET PO ONE (13:00)
[2018-03-06] MEDS: TAMSULOSIN HCL 0.4 MG CAP.SR.24H PO SCH (13:57)
[2018-03-06] MEDS: DOXYCYCLINE HYCLATE 100 MG TABLET PO SCH (22:30)
[2018-03-07 06:53] LABS: ABSOLUTE BASOPHILS # (AUTO) 0.1 10^3/uL (0.0-0.2); ABSOLUTE EOSINOPHILS # (AUTO) 0.1 10^3/uL (0.0-0.6); ABSOLUTE LYMPHOCYTES (AUTO) 1.1 10^3/uL (0.5-4.7); ABSOLUTE MONOCYTES (AUTO) 1.4 10^3/uL (0.1-1.4); ABSOLUTE NEUT (AUTO) 8.6 10^3/uL (1.7-8.2); BASOPHILS % (AUTO) 0.6 % (0-2); EOSINOPHILS % (AUTO) 1.1 % (0-6); HEMATOCRIT 28.4 % (37.9-51.0); HEMOGLOBIN 9.2 g/dL (13.5-17.0); MEAN CORPUSCULAR HEMOGLOBIN 26.3 pg (27.0-33.4); MEAN CORPUSCULAR HGB CONC 32.4 g/dL (32.0-36.0); MEAN CORPUSCULAR VOLUME 81 fl (80-97); MONOCYTES % (AUTO) 12.2 % (3-13); PLATELET COUNT 263 10^3/uL (150-450); RED BLOOD COUNT 3.51 10^6/uL (4.35-5.55); RED CELL DISTRIBUTION WIDTH 14.6 % (11.5-14.0); SEGMENTED NEUTROPHILS % (AUTO) 76.1 % (42-78); TOTAL CELLS COUNTED % (AUTO) 100 %; WHITE BLOOD COUNT 11.4 10^3/uL (4.0-10.5)
[2018-03-07 07:07] LABS: ANION GAP 11 (5-19); BLOOD UREA NITROGEN 24 mg/dL (7-20); CALCIUM 8.8 mg/dL (8.4-10.2); CARBON DIOXIDE 35 mmol/L (22-30); CHLORIDE 96 mmol/L (98-107); GLUCOSE 110 mg/dL (75-110); POTASSIUM 3.8 mmol/L (3.6-5.0); SODIUM 141.5 mmol/L (137-145)
[2018-03-07] MEDS: VERAPAMIL HCL 120 MG TABLET PO SCH ×2 (10:25→22:06)
[2018-03-07] MEDS: FLUTICASONE/SALMETEROL DISKUS 250-50 MCG/DOSE IH SCH ×2 (10:31→22:07)
[2018-03-07] MEDS: FUROSEMIDE 20 MG TABLET PO SCH (10:32)
[2018-03-07] MEDS: DOXYCYCLINE HYCLATE 100 MG TABLET PO SCH ×2 (10:33→22:06)
[2018-03-07] MEDS: MULTIVITAMIN TABLET PO SCH (10:33)
[2018-03-07] MEDS: DRONEDARONE HYDROCHLORIDE 400 MG TABLET PO SCH ×2 (10:33→22:06)
[2018-03-07] MEDS: TAMSULOSIN HCL 0.4 MG CAP.SR.24H PO SCH (14:51)
--- NOTE | 2018-03-07 18:07 | PDOC PROGRESS REPORT ---
Subjective Progress Note for:: 03/07/18 Subjective:: No adverse events overnight. No new complaints. Vital signs been stable. No chest pain or shortness of breath. He has been sleeping sitting up in the chair. He was napping this morning when I came in the room. His urine outputs been good. Said his right arm does not really bother him too much anymore. Reason For Visit: ACUTE ON CHRONIC DIASTOLIC HEART FAILURE Physical Exam Vital Signs: Temp Pulse Resp BP Pulse Ox 98.2 F 65 14 106/60 99 03/07/18 12:00 03/07/18 12:00 03/07/18 12:00 03/07/18 12:00 03/07/18 12:00 Intake & Output 03/06/18 03/07/18 03/08/18 06:59 06:59 06:59 Intake Total 843 1018 Balance 843 1018 Weight 133 kg 132.4 kg General appearance: PRESENT: no acute distress, disheveled, morbidly obese Respiratory exam: PRESENT: decreased breath sounds, unlabored. ABSENT: accessory muscle use, rales, rhonchi, wheezes Cardiovascular exam: PRESENT: RRR, systolic murmur GI/Abdominal exam: PRESENT: normal bowel sounds, soft. ABSENT: guarding, rebound, tenderness Extremities exam: PRESENT: pedal edema, +2 edema Musculoskeletal exam: ABSENT: deformity Neurological exam: PRESENT: alert, awake, oriented to person, oriented to place , oriented to time Psychiatric exam: PRESENT: appropriate affect, normal mood Skin exam: PRESENT: dry, warm Results Laboratory Results: 03/07/18 06:00 03/07/18 06:00 03/07/18 03/07/18 06:00 06:00 WBC 11.4 H RBC 3.51 L Hgb 9.2 L Hct 28.4 L MCV 81 MCH 26.3 L MCHC 32.4 RDW 14.6 H Plt Count 263 Seg Neutrophils % 76.1 Lymphocytes % 10.0 L Monocytes % 12.2 Eosinophils % 1.1 Basophils % 0.6 Absolute Neutrophils 8.6 H Absolute Lymphocytes 1.1 Absolute Monocytes 1.4 Absolute Eosinophils 0.1 Absolute Basophils 0.1 Sodium 141.5 Potassium 3.8 Chloride 96 L Carbon Dioxide 35 H Anion Gap 11 BUN 24 H Creatinine 0.74 Est GFR ( Amer) > 60 Est GFR (Non-Af Amer) > 60 Glucose 110 Calcium 8.8 02/27/18 02/28/18 02/28/18 23:10 05:12 11:30 Troponin I < 0.012 < 0.012 < 0.012 NT-Pro-B Natriuret Pep 03/02/18 07:55 Troponin I NT-Pro-B Natriuret Pep 120 Impressions: Chest X-Ray 02/27/18 16:41 IMPRESSION: Bilateral pleural effusions right greater than left and right basilar opacities. No obvious congestive failure. Upper Extremity CT 03/04/18 00:00 IMPRESSION: 1. No acute fracture at the right shoulder. Degenerative changes. 2. Moderate right-sided pleural effusion with adjacent ground-glass opacity, may be secondary to pulmonary edema, atelectasis or pneumonia. 3. Linear lucency at the posterior aspect of the right 6th rib, may represent a nondisplaced fracture. Please correlate with point tenderness. Venous Doppler Study 03/05/18 00:00 IMPRESSION: NO EVIDENCE DVT OR SVT IN THE RIGHT ARM. Assessment & Plan - Diagnosis (1) Acute and chronic respiratory failure Qualifiers: Respiratory failure complication: hypoxia and hypercapnia Qualified Code(s) : J96.21 - Acute and chronic respiratory failure with hypoxia; J96.22 - Acute and chronic respiratory failure with hypercapnia; J96.22 - Acute and chronic respiratory failure with hypercapnia; J96.22 - Acute and chronic respiratory failure with hypercapnia Is this a current diagnosis for this admission?: Yes Plan: Stable on his current level oxygen support. Continue to maintain SPO2 greater than 90%. (2) Acute on chronic diastolic CHF (congestive heart failure) Is this a current diagnosis for this admission?: Yes Plan: Responding well to diuresis, will continue current regimen. (3) Morbid obesity Is this a current diagnosis for this admission?: Yes Plan: I encourage lifestyle modification but he was not interested. (4) Right arm pain Is this a current diagnosis for this admission?: Yes Plan: Swelling has gone down substantially. There is a minimal amount of medial right elbow erythema. There is some swelling there but there is no pain or warmth. Currently he is on doxycycline but I do not think he is going to have to go home on that. This is likely due to him being on anticoagulant, and the electronic blood pressure cuff having a hard time picking up his pressure and repeating its cycling causing some local trauma. - Time Time Spent with patient: 25-34 minutes
[2018-03-08] MEDS: MULTIVITAMIN TABLET PO SCH (11:25)
[2018-03-08] MEDS: RIVAROXABAN 10 MG TABLET PO SCH (11:25)
[2018-03-08] MEDS: FUROSEMIDE 20 MG TABLET PO SCH (11:25)
[2018-03-08] MEDS: DOXYCYCLINE HYCLATE 100 MG TABLET PO SCH (11:25)
[2018-03-08] MEDS: FLUTICASONE/SALMETEROL DISKUS 250-50 MCG/DOSE IH SCH (13:42)
[2018-03-08] MEDS: DRONEDARONE HYDROCHLORIDE 400 MG TABLET PO SCH (13:43)
[2018-03-08] MEDS: VERAPAMIL HCL 120 MG TABLET PO SCH (13:43)
[2018-03-08] MEDS: TAMSULOSIN HCL 0.4 MG CAP.SR.24H PO SCH (13:45)
[2018-03-08 14:49] VITALS: BP 104/57
--- NOTE | 2018-03-08 19:27 | PDOC DISCHARGE SUMMARY ---
General - Admit/Disc Date/PCP Admission Date/Primary Care Provider: 02/27/18 18:25 Discharge Date: 03/08/18 - Discharge Diagnosis (1) Acute and chronic respiratory failure Is this a current diagnosis for this admission?: Yes Summary: He is back to his usual 2 L nasal cannula at time of discharge. (2) Acute on chronic diastolic CHF (congestive heart failure) Is this a current diagnosis for this admission?: Yes Summary: It took several days to mobilize all of the edema he had accumulated. We got him back on his home diuretic regimen. We also got him plugged into an outpatient CHF program for monitoring purposes. (3) Morbid obesity Is this a current diagnosis for this admission?: Yes Summary: Encourage lifestyle modification but he was not interested (4) Right arm pain Is this a current diagnosis for this admission?: Yes Summary: From the blood pressure cuff not been able to picker because of his body habitus and because he was on anticoagulant. This resolved quickly. - Additional Information Discharge Diet: Cardiac Discharge Activity: Activity As Tolerated, Balance Activity w/Rest, No Driving, Weigh Daily Home Medications: Fluticasone/Salmeterol [Advair 250-50 Diskus 14 Dose/Diskus] 1 puff IH Q12 09/24 Furosemide [Lasix 40 mg Tablet] 20 mg PO DAILY 09/24/17 Tamsulosin HCl [Flomax 0.4 mg Cap.sr] 0.4 mg PO DAILY 09/24/17 Verapamil HCl [Calan 120 mg Tablet] 120 mg PO Q12 09/24/17 Rivaroxaban [Xarelto] 20 mg PO DAILY 09/26/17 Dronedarone HCl [Multaq] 400 mg PO Q12 02/27/18 Multivit-Min/FA/Lycopen/Lutein [Centrum Silver Men Tablet] 1 each PO DAILY 02/27 History of Present Illness History of Present Illness: [place] JR is a 73 year old male comes to the emergency department complaining of progressive shortness of breath for the last week, associated with cough with whitish sputum, increased leg swelling on and off more when he is ambulatory. States is compliant with his 20 mg of p.o. home Lasix. Tells me that he has gained weight to 282 pounds early August to this admission, states he is a scale at home does not work. Into his primary care physician who advised him to come to the emergency department. In the ED patient was found with oxygen saturation in the 75%. Patient is chronic respiratory failure on 3 L oxygen at home. Chest x-ray shows bilateral pleural effusions. Echocardiogram this year with diastolic dysfunction. The ED given 60 mg of IV Lasix. Denies wheezing, dizziness, lightheadedness, fever, chills chest pain, abdominal pain, changes in his urine or bowel movements. Hospital Course Hospital Course: He was given IV Lasix and was diuresed. It took several days to get all the accumulated fluid off of them. We were finally able to transition back over to his home diuretic regimen. We will plan on sending him home but he started having some arm swelling after the blood pressure cuff was having trouble picking up his blood pressure because of his edema, and because he is on anticoagulant he had some local tissue trauma. This resolved quickly with supportive measures. He agreed to home health. He said he has not been checking his weight every day at home and so we got him a scale we got employed in the transitional care program for CHF. His labs and examination were reassuring he was discharged in good condition. Physical Exam Vital Signs: Temp Pulse Resp BP Pulse Ox 98.3 F 64 16 104/57 L 98 03/08/18 14:40 03/08/18 14:40 03/08/18 14:40 03/08/18 14:40 03/08/18 14:40 Intake & Output 03/07/18 03/08/18 03/09/18 06:59 06:59 06:59 Intake Total 1018 530 Balance 1018 530 Weight 132.4 kg General appearance: PRESENT: no acute distress, cooperative, disheveled, morbidly obese Respiratory exam: PRESENT: decreased breath sounds, unlabored. ABSENT: rales, rhonchi, wheezes Cardiovascular exam: PRESENT: RRR, systolic murmur GI/Abdominal exam: PRESENT: normal bowel sounds, soft. ABSENT: guarding, rebound, tenderness Extremities exam: PRESENT: pedal edema, +1 edema Musculoskeletal exam: PRESENT: normal inspection. ABSENT: deformity Neurological exam: PRESENT: alert, awake, oriented to person, oriented to place , oriented to time Psychiatric exam: PRESENT: appropriate affect, normal mood Skin exam: PRESENT: dry, warm Results Laboratory Results: 03/07/18 06:00 03/07/18 06:00 02/27/18 02/28/18 02/28/18 23:10 05:12 11:30 Troponin I < 0.012 < 0.012 < 0.012 NT-Pro-B Natriuret Pep 03/02/18 07:55 Troponin I NT-Pro-B Natriuret Pep 120 Impressions: Chest X-Ray 02/27/18 16:41 IMPRESSION: Bilateral pleural effusions right greater than left and right basilar opacities. No obvious congestive failure. Upper Extremity CT 03/04/18 00:00 IMPRESSION: 1. No acute fracture at the right shoulder. Degenerative changes. 2. Moderate right-sided pleural effusion with adjacent ground-glass opacity, may be secondary to pulmonary edema, atelectasis or pneumonia. 3. Linear lucency at the posterior aspect of the right 6th rib, may represent a nondisplaced fracture. Please correlate with point tenderness. Venous Doppler Study 03/05/18 00:00 IMPRESSION: NO EVIDENCE DVT OR SVT IN THE RIGHT ARM. Qualifiers - * PATIENT BEING DISCHARGED WITH ANY OF THE FOLLOWING DIAGNOSIS: Heart Failure HF Pt being discharged on ACEI for LVEF less than 40%?: Yes HF Pt being discharged on ARBS for LVEF less than 40%?: No Reason(s) for not prescribing ARBS:: Not indicated HF Pt with Afib discharged with Warfarin?: No Reason(s) for not prescribing Warfarin:: Not indicated - On Xarelto HF Pt discharged on evidence-based Beta Chandrika:: Yes
== END 2018-03-08 16:10 | disposition home health service (06) | DRG 291 ==
LOC: ER 16:11 → EH 18:25 → 4S 21:09
PROVIDERS: ADMIT Internal Medicine; ATTEND Internal Medicine
DX: I11.0 Hypertensive heart disease with heart failure (principal); J96.21 Acute and chronic respiratory failure with hypoxia; J96.22 Acute and chronic respiratory failure with hypercapnia; Z68.41 Body mass index [BMI] 40.0-44.9, adult; I47.0 Re-entry ventricular arrhythmia; N17.9 Acute kidney failure, unspecified; I50.33 Acute on chronic diastolic (congestive) heart failure; E66.01 Morbid (severe) obesity due to excess calories; I49.3 Ventricular premature depolarization; E78.00 Pure hypercholesterolemia, unspecified; J44.9 Chronic obstructive pulmonary disease, unspecified; F17.210 Nicotine dependence, cigarettes, uncomplicated; M46.90 Unspecified inflammatory spondylopathy, site unspecified; I08.0 Rheumatic disorders of both mitral and aortic valves; D50.9 Iron deficiency anemia, unspecified; I48.91 Unspecified atrial fibrillation; Z88.6 Allergy status to analgesic agent; Z99.81 Dependence on supplemental oxygen; Z90.49 Acquired absence of other specified parts of digestive tract; Z79.899 Other long term (current) drug therapy; Z91.11 Patient's noncompliance with dietary regimen; Z82.3 Family history of stroke; Z82.49 Family history of ischemic heart disease and other diseases of the circulatory system
CPT/HCPCS: 36415; 51702; 71046; 80048; 80076; 81001; 82607; 82728; 82746; 83036; 83540; 83550; 83735; 83880; 84484; 85025; 85027; 85045; 85610; 93005; 93010; 93306; 93971; 96374; 99285; J1940; J3490

== ENCOUNTER 2018-04-14 16:37 | Emergency (ER) | payer OTHER, MEDICARE ==
[2018-04-14 16:45] VITALS: BP 124/81
[2018-04-14] MEDS ORDERED: LIDOCAINE 1% INJ-PF (10 MG/ML) 30 ML SDV INJ ONE (16:57)
[2018-04-14] MEDS ORDERED: CEFTRIAXONE INJ 1000 MG VIAL IM ONE (16:57)
--- NOTE | 2018-04-14 17:02 | ER Document Report ---
ED Extremity Problem, Upper - General Chief Complaint: Arm Pain Stated Complaint: LEFT ARM ISSUE/PAIN Time Seen by Provider: 04/14/18 16:56 Notes: Chief complaint: Left forearm swelling History of complain:( obtained from----patient) 73 years old male presents today with left forearm swelling at the extensor surface and the bottom. 2 weeks ago he had a cellulitis of the entire forearm with swelling treated with Cipro. Cipro was finished a few days ago. Subsequently he noted this swelling. No fever chills or other constitutional symptoms. He is a COPD on oxygen as well as diabetic. Onset: Gradual Duration: 2 weeks ago Severity: Mild to moderate Quality:dull Context: As above Exacerbating factor and relieving factors: As above REVIEW OF SYSTEMS: CONSTITUTIONAL : Denies fever, chills, or sweats. Denies recent illness. EENT: Denies eye, ear, throat, or mouth pain or symptoms. Denies nasal or sinus congestion or discharge. Denies throat, tongue, or mouth swelling or difficulty swallowing. CARDIOVASCULAR: Denies chest pain. Denies palpitations or racing or irregular heart beat. Denies ankle edema. RESPIRATORY: Denies cough, cold, or chest congestion. Denies shortness of breath, difficulty breathing, or wheezing. GASTROINTESTINAL: Denies distention. Denies nausea, vomiting, or diarrhea. Denies blood in vomitus, stools, or per rectum. Denies black, tarry stools. Denies constipation. GENITOURINARY: Denies difficulty urinating, painful urination, burning, frequency, blood in urine, or discharge. FEMALE GENITOURINARY: Denies vaginal bleeding, heavy or abnormal periods, irregular periods. Denies vaginal discharge or odor. MUSCULOSKELETAL: Denies back or neck pain or stiffness. Denies joint pain or swelling. SKIN: HEMATOLOGIC : Denies easy bruising or bleeding. LYMPHATIC: Denies swollen, enlarged glands. NEUROLOGICAL: Denies confusion or altered mental status. Denies passing out or loss of consciousness. Denies dizziness or lightheadedness. Denies headache. Denies weakness or paralysis or loss of use of either side. Denies problems with gait or speech. Denies sensory loss, numbness, or tingling. Denies seizures. PSYCHIATRIC: Denies anxiety or stress. Denies depression, suicidal ideation, or homicidal ideation. ALL OTHER SYSTEMS REVIEWED AND NEGATIVE. PHYSICAL EXAMINATION: GENERAL: Well-appearing, well-nourished and in no acute distress. Obesity HEAD: Atraumatic, normocephalic. EYES: Pupils equal round and reactive to light, extraocular movements intact, conjunctiva are normal. ENT: Nares patent, oropharynx clear without exudates. Moist mucous membranes. NECK: Normal range of motion, supple without lymphadenopathy LUNGS: Breath sounds clear to auscultation bilaterally and equal. No wheezes rales or rhonchi. HEART: Regular rate and rhythm without murmurs ABDOMEN: Soft, nontender, nondistended abdomen. No guarding, no rebound. No masses appreciated. Examination of genitals-deferred Musculoskeletal: Normal range of motion, no pitting or edema. No cyanosis. NEUROLOGICAL: Cranial nerves grossly intact. Normal speech, normal gait. Normal sensory, motor exams PSYCH: Normal mood, normal affect. SKIN: Left forearm skin on the proximal end inferior surface has a soft tissue swelling which is warm and tender to touch and slightly erythematous. This is a remanent of the cellulitis he had before. Dictation was performed using [employer] voice recognition software TRAVEL OUTSIDE OF THE [place] IN LAST 30 DAYS: No - HPI Notes: Dictated - Related Data Allergies/Adverse Reactions: codeine [Codeine] Allergy (Verified 02/27/18 16:15) Past Medical History - Social History Smoking Status: Former Smoker Frequency of alcohol use: None Drug Abuse: None Family History: None, Reviewed & Not Pertinent, CAD, CVA Patient has suicidal ideation: No Patient has homicidal ideation: No - Past Medical History Cardiac Medical History: Reports: Hx Atrial Fibrillation, Hx Hypercholesterolemia, Hx Hypertension Pulmonary Medical History: Reports: Hx COPD Renal/ Medical History: Denies: Hx Peritoneal Dialysis Musculoskeletal Medical History: Reports Hx Arthritis - back pain Psychiatric Medical History: Denies: Hx Depression Past Surgical History: Reports: Hx Appendectomy, Hx Cholecystectomy, Hx Herniorrhaphy, Hx Orthopedic Surgery - right shoulder surgery, Hx Tonsillectomy - Immunizations Hx Diphtheria, Pertussis, Tetanus Vaccination: Yes - Unknown Hx Pneumococcal Vaccination: 08/31/16 Review of Systems - Review of Systems Notes: Dictated Physical Exam - Vital signs Vitals: Temp Pulse Resp BP Pulse Ox 97.9 F 90 20 124/81 92 04/14/18 16:43 04/14/18 16:43 04/14/18 16:43 08/31/18 16:43 04/14/18 16:43 - Notes Notes: Dictated Course - Re-evaluation Re-evalutation: 04/14/18 17:00 Given ceftriaxone IM - Vital Signs Vital signs: Temp Pulse Resp BP Pulse Ox 97.9 F 90 20 124/81 92 04/14/18 16:43 04/14/18 16:43 04/14/18 16:43 04/14/18 16:43 04/14/18 16:43 Discharge - Discharge Clinical Impression: Cellulitis of forearm, left Condition: Fair Disposition: HOME, SELF-CARE Instructions: Cellulitis ([facility]) Additional Instructions: Cellulitis You have an infection of your skin and underlying soft tissues called cellulitis. This is due to bacteria, which can enter through any break in the skin, or even through an irritated hair follicle. Untreated, cellulitis will usually worsen. Antibiotics are required. Usually, warm packs or warm soaks, and elevation of the infected area are recommended. You should start getting better within 24 to 36 hours. Most infections respond quickly to the right medication. Follow-up care is important, however, to check for abscess (boil) formation, unsuspected foreign body, or resistant infection. If you develop fever, chills, or if the area of infection is becoming rapidly more swollen or painful, call the doctor at once. Prescriptions: Cephalexin Monohydrate [Keflex 500 mg Capsule] 500 mg PO QID #20 capsule Referrals: REJI SANDOVAL DO [Primary Care Provider] - Follow up as needed
== END 2018-04-14 17:30 | disposition home or self-care (01) ==
LOC: ER 16:37
DX: L03.114 Cellulitis of left upper limb (principal); M79.602 Pain in left arm; M79.89 Other specified soft tissue disorders; Z87.891 Personal history of nicotine dependence; I10 Essential (primary) hypertension; J44.9 Chronic obstructive pulmonary disease, unspecified
CPT/HCPCS: 99283; 96372; J3490; J0696

== ENCOUNTER 2018-06-17 19:46 | Emergency (ER) | payer OTHER, MEDICARE ==
[2018-06-17] MEDS ORDERED: LIDOCAINE 0.5%/EPINEPHRINE INJ 50 ML VIAL INJ ONE (20:37)
--- NOTE | 2018-06-17 20:44 | ER Document Report ---
ED Wound - General Chief Complaint: Laceration Stated Complaint: ARM LACERATION Time Seen by Provider: 06/17/18 20:28 Notes: Patient is a 73-year-old male presenting to the emerge department complaining of the last patient to the medial aspect of his left hand. Patient states he thinks he had a wart in that area and he hit it on his scooter and it started to bleed. Patient is on Xarelto and was worried because he could not get the bleeding to stop. Patient denies any other symptoms to include chest pain, shortness of breath, lightheadedness, dizziness. Past medical history: Atrial fibrillation, heart murmur, enlarged prostate Medications: Lasix, verapamil, tamsulosin, Xarelto Allergies: Codeine TRAVEL OUTSIDE OF THE [place] IN LAST 30 DAYS: No - Related Data Allergies/Adverse Reactions: codeine [Codeine] Allergy (Verified 02/27/18 16:15) Past Medical History - General Information source: Patient - Social History Smoking Status: Former Smoker Lives with: Family Family History: Reviewed & Not Pertinent, CAD, CVA Patient has suicidal ideation: No Patient has homicidal ideation: No - Past Medical History Cardiac Medical History: Reports: Hx Atrial Fibrillation, Hx Hypercholesterolemia, Hx Hypertension Pulmonary Medical History: Reports: Hx COPD Renal/ Medical History: Denies: Hx Peritoneal Dialysis Musculoskeletal Medical History: Reports Hx Arthritis - back pain Psychiatric Medical History: Denies: Hx Depression Past Surgical History: Reports: Hx Appendectomy, Hx Cholecystectomy, Hx Herniorrhaphy, Hx Orthopedic Surgery - right shoulder surgery, Hx Tonsillectomy - Immunizations Hx Diphtheria, Pertussis, Tetanus Vaccination: Yes - Unknown Hx Pneumococcal Vaccination: 08/31/16 Review of Systems - Review of Systems Constitutional: No symptoms reported EENT: No symptoms reported Cardiovascular: No symptoms reported Respiratory: No symptoms reported Gastrointestinal: No symptoms reported Genitourinary: No symptoms reported Male Genitourinary: No symptoms reported Musculoskeletal: No symptoms reported Skin: See HPI Hematologic/Lymphatic: See HPI Neurological/Psychological: No symptoms reported Physical Exam - Vital signs Vitals: Temp Pulse Resp BP Pulse Ox 98.4 F 70 18 109/63 97 06/17/18 19:56 06/17/18 19:56 06/17/18 19:56 06/17/18 19:56 06/17/18 19:56 - Notes Notes: GENERAL: Alert, interacts well. No acute distress. Patient on home O2 1 L/min HEAD: Normocephalic, atraumatic. EYES: Pupils equal, round, and reactive to light. Extraocular movements intact. ENT: Oral mucosa moist, tongue midline. NECK: Full range of motion. Supple. Trachea midline. LUNGS: Clear to auscultation bilaterally, no wheezes, rales, or rhonchi. No respiratory distress. HEART: Regular rate and rhythm. No murmur ABDOMEN: Soft, non-tender. Non-distended. Bowel sounds present in all 4 quadrants. EXTREMITIES: Moves all 4 extremities spontaneously. No edema, normal radial and dorsalis pedis pulses bilaterally. No cyanosis. BACK: no cervical, thoracic, lumbar midline tenderness. No saddle anesthesia, normal distal neurovascular exam. NEUROLOGICAL: Alert and oriented x3. Normal speech. cranial nerves II through XII grossly intact. PSYCH: Normal affect, normal mood. SKIN: Warm, dry, normal turgor. 0.5 cm laceration noted left hand medial (not dorsal, not tran) below MCP joint of pinky. Course - Re-evaluation Re-evalutation: 06/17/18 21:39 once Lido with Epi was administered bleeding slowed significantly. Looks to be that the Pt. had hit his hand and the wart he thought he had there was no longer there, looks like he scrapped it off. 0.5 cm laceration repaired, bleeding completely stopped at that point. Pressure dressing applied. Good cap refill in all 5 distal nailbeds. Less than 2 sec. Patient states he has an appointment at the [facility] on Tuesday he will follow-up then. Told to return to the emergency room should the bleeding started again. - Vital Signs Vital signs: Temp Pulse Resp BP Pulse Ox 98 F 71 16 109/60 98 06/17/18 22:00 06/17/18 22:00 06/17/18 22:00 06/17/18 22:00 06/17/18 22:00 Procedures - Laceration/Wound Repair hand Wound length (cm): 0.5 Wound's Depth, Shape: Superficial, Linear Laceration pre-procedure: Sterile PPE donned, Sterile drapes applied, Shur- Clens applied Anesthetic type: 1% Lidocaine w/epi Volume Anesthetic (mLs): 5 Wound explored: Clean Irrigated w/ Saline (mLs): 200 Wound Repaired With: Sutures Suture Size/Type: 4:0, Ethilon Number of Sutures: 1 Post-procedure wound care: Sterile dressing applied, Other - pressure dressing applied Post-procedure NV exam normal: Yes Complications: No Discharge - Discharge Clinical Impression: Laceration Condition: Stable Disposition: HOME, SELF-CARE Instructions: Laceration Care ([facility]), Tetanus Immunization Given ([facility]) Additional Instructions: As we discussed you should keep the pressure bandage on [facility] Please return to the emergency room should you see any bleeding consider dressing. Please also return should you feel lightheaded dizzy, weak. Please return for any other worsening symptoms. Referrals: TRENT HARLEY MD [Primary Care Provider] - Follow up as needed
[2018-06-17] MEDS ORDERED: DIPH/PERTUSS(ACELL)/TETANUS VAC/PF 0.5 ML SYR (>=10YO) IM ONE (21:42)
[2018-06-17 22:01] VITALS: BP 109/60
== END 2018-06-17 22:01 | disposition home or self-care (01) ==
LOC: ER 19:46
DX: S61.412A Laceration without foreign body of left hand, initial encounter (principal); W22.8XXA Striking against or struck by other objects, initial encounter; I10 Essential (primary) hypertension; J44.9 Chronic obstructive pulmonary disease, unspecified; N40.0 Benign prostatic hyperplasia without lower urinary tract symptoms; I48.91 Unspecified atrial fibrillation; Z79.01 Long term (current) use of anticoagulants; Z79.899 Other long term (current) drug therapy; Z99.81 Dependence on supplemental oxygen; Z87.891 Personal history of nicotine dependence; Z88.5 Allergy status to narcotic agent
CPT/HCPCS: 99283; 90471; 90715; 12001; J3490

== ENCOUNTER → 2018-12-07 | Day surgery (SDC) | payer MEDICARE ==
[~2018-12-07] MED LIST: BUPIVACAINE HCL 0.5 % INJ/PF 30 ML SDV ONE; LIDOCAINE 1% INJ-PF (10 MG/ML) 30 ML SDV ONE
--- NOTE | 2018-12-07 09:11 | Operative Report ---
PROCEDURE: KNEE RADIOFREQUENCY bilateral under ultrasound guidance Preoperative Diagnosis: Bilateral knee osteoarthritis Postoperative Diagnosis: Bilateral knee osteoarthritis 1. Superolateral genicular branch from the vastus lateralis 2. Superomedial genicular branch from the vastus medialis 3. Inferomedial genicular branch from the saphenous nerve 4. Medial retinacular branch from the vastus intermedius DATE OF PROCEDURE: December 07, 2018 ANESTHESIA: Local anesthesia COMPLICATIONS: None reported PROCEDURE IN DETAIL: Hx/PE/meds/allergies/applicable labs reviewed. No changes and no contraindications were found. Full description of the procedure was provided including benefits as well as possible complications including transient increased pain, stomach irritation, mood alteration, transient weakness or parasthesias as well as more serious nerve injury, bleeding, infection or allergic reaction. Informed consent was obtained and documented. The patient was brought to the procedure room and placed on the exam table in a comfortable supine position. The place for needle placement was obtained by manual palpation with ultrasound confirmation. The sterile field was prepared by chloroprep and sterile drapes. Local anesthesia superficial and deep was provided by local infiltration of 2% lidocaine. A 17g 50 mm radiofrequency introducer needle with a 4 mm active tip was placed overlying the bilateral knee joint and using ultrasound guidance the needle was advanced to a bony endpoint on the superiolateral portion of the femoral condyle of the bilateral knee. A second needle was advanced to a bony endpoint on the superiomedial portion of the femoral condyle. A third needle was then placed over the inferiomedial portion of the tibial condyle until a bony endpoint was met. 4th needle placed 3mm above the patella with the tip in contact with the Medial retinacular branch from the vastus intermedius. Attempted aspiration yielded no blood. Transverse ultrasound views showed all the needles at 50% depth of the femur and tibia. Motor stimulation was tested at 2.0 volts with no leg movement. Images were saved in AP and lateral. A mixture consisting of 0.5% bupivacaine was slowly injected. Then a radiofrequency ablation of each of the geniculate nerves were done at 80 degrees Celsius for 2 minutes and 30 seconds each. The needles were withdrawn. The patient tolerated the procedure well. After observation the patient was discharged with instructions and follow up. They were also provided contact information to call regarding any concerning symptoms or questions. IMPRESSION: 1. Successful geniculate bilateral knee radiofrequency ablation was performed. 2. The patient was given prescription of home medicines. 3. RTC in 1-2 week(s).
== END ==
LOC: RAD 08:50
PROVIDERS: ATTEND Family Medicine
DX: M17.0 Bilateral primary osteoarthritis of knee (principal)
CPT/HCPCS: 64640 ×4; J3490 ×2

== ENCOUNTER 2019-05-07 12:49 | Emergency (ER) | payer OTHER, MEDICARE ==
--- NOTE | 2019-05-07 14:13 | ER Document Report ---
ED Extremity Problem, Lower - General Chief Complaint: Leg Swelling Stated Complaint: LEG SWELLING Time Seen by Provider: 05/07/19 13:58 Primary Care Provider: [facility] [[facility]] - Follow up as needed Mode of Arrival: Ambulatory Information source: Patient TRAVEL OUTSIDE OF THE [place] IN LAST 30 DAYS: No - HPI Patient complains to provider of: Swelling Location: Leg - Pt was seen at [facility] earlier this am for L leg swelling for the past 2-3 days. He denies pain but says sometimes it hurts when he bears weight. He denies fever. He was told to come here to make sure there was no blood clot in his leg. - Related Data Allergies/Adverse Reactions: codeine [Codeine] Allergy (Verified 02/27/18 16:15) Past Medical History - General Information source: Patient - Social History Smoking Status: Former Smoker Family History: Reviewed & Not Pertinent, CAD, CVA Patient has suicidal ideation: No Patient has homicidal ideation: No - Past Medical History Cardiac Medical History: Reports: Hx Atrial Fibrillation, Hx Hypercho lesterolemia, Hx Hypertension Pulmonary Medical History: Reports: Hx COPD Renal/ Medical History: Denies: Hx Peritoneal Dialysis Musculoskeletal Medical History: Reports Hx Arthritis - back pain Psychiatric Medical History: Denies: Hx Depression Past Surgical History: Reports: Hx Appendectomy, Hx Cholecystectomy, Hx Herniorrhaphy, Hx Orthopedic Surgery - right shoulder surgery, Hx Tonsillectomy - Immunizations Hx Diphtheria, Pertussis, Tetanus Vaccination: Yes - Unknown Hx Pneumococcal Vaccination: 08/31/16 Review of Systems - Review of Systems Constitutional: No symptoms reported EENT: No symptoms reported Cardiovascular: No symptoms reported Respiratory: No symptoms reported Gastrointestinal: No symptoms reported Musculoskeletal: See HPI, Leg swelling Neurological/Psychological: No symptoms reported -: Yes All other systems reviewed and negative Physical Exam - Vital signs Vitals: Temp Pulse Resp BP Pulse Ox 98.3 F 72 19 109/54 L 91 L 05/07/19 13:19 05/07/19 13:19 05/07/19 13:19 05/07/19 13:05/07/19 13:19 - General General appearance: Appears well - pt. is obese In distress: None - Respiratory Respiratory status: No respiratory distress Breath sounds: Normal - Cardiovascular Rhythm: Regular Heart sounds: Normal auscultation Murmur: No - Abdominal Inspection: Normal Tenderness: Nontender - Extremities General upper extremity: Normal inspection General lower extremity: Edema - there is some edema of the LLE diffusely with slight erythema. It is non-tender to palpation and N/V intact. There is is 0. 5 cm pustule located on the mid-lateral aspect of the tibia. Course - Vital Signs Vital signs: Temp Pulse Resp BP Pulse Ox 98.3 F 72 19 109/54 L 91 L 05/07/19 13:19 05/07/19 13:19 05/07/19 13:19 05/07/19 13:19 05/07/19 13:19 - Laboratory Result Diagrams: 05/07/19 13:45 05/07/19 13:45 Laboratory results interpreted by me: 05/07/19 05/07/19 13:45 13:45 WBC 12.0 H RBC 3.84 L Hgb 10.3 L Hct 33.0 L MCH 26.7 L MCHC 31.1 L RDW 14.2 H Lymph % (Auto) 10.5 L Absolute Neuts (auto) 9.5 H Seg Neutrophils % 78.8 H Potassium 3.4 L Chloride 91 L Carbon Dioxide 39 H Glucose 140 H - Diagnostic Test Radiology reviewed: Image reviewed - neg dvt Discharge - Discharge Clinical Impression: Swelling of left lower extremity Condition: Stable Disposition: HOME, SELF-CARE Additional Instructions: rest, take meds as prescribed, return if worse Prescriptions: Cephalexin Monohydrate [Keflex 500 mg Capsule] 500 mg PO QID #20 capsule Referrals: [facility] [[facility]] - Follow up as needed
[2019-05-07 14:26] LABS: ABSOLUTE BASOPHILS # (AUTO) 0.1 10^3/uL (0.0-0.2); ABSOLUTE EOSINOPHILS # (AUTO) 0.1 10^3/uL (0.0-0.6); ABSOLUTE LYMPHOCYTES (AUTO) 1.3 10^3/uL (0.5-4.7); ABSOLUTE MONOCYTES (AUTO) 1.1 10^3/uL (0.1-1.4); ABSOLUTE NEUT (AUTO) 9.5 10^3/uL (1.7-8.2); BASOPHILS % (AUTO) 0.5 % (0-2); EOSINOPHILS % (AUTO) 0.7 % (0-6); HEMOGLOBIN 10.3 g/dL (13.5-17.0); LYMPHOCYTES % (AUTO) 10.5 % (13-45); MEAN CORPUSCULAR HEMOGLOBIN 26.7 pg (27.0-33.4); MEAN CORPUSCULAR HGB CONC 31.1 g/dL (32.0-36.0); MEAN CORPUSCULAR VOLUME 86 fl (80-97); MONOCYTES % (AUTO) 9.5 % (3-13); PLATELET COUNT 297 10^3/uL (150-450); RED BLOOD COUNT 3.84 10^6/uL (4.35-5.55); RED CELL DISTRIBUTION WIDTH 14.2 % (11.5-14.0); SEGMENTED NEUTROPHILS % (AUTO) 78.8 % (42-78); TOTAL CELLS COUNTED % (AUTO) 100 %
[2019-05-07 14:41] LABS: ALBUMIN 3.7 g/dL (3.5-5.0); ALKALINE PHOSPHATASE 89 U/L (38-126); ASPARTATE AMINO TRANSFERASE 20 U/L (17-59); BILIRUBIN,DIRECT 0.2 mg/dL (0.0-0.4); BILIRUBIN,TOTAL 1.2 mg/dL (0.2-1.3); BLOOD UREA NITROGEN 16 mg/dL (7-20); CALCIUM 9.2 mg/dL (8.4-10.2); CHLORIDE 91 mmol/L (98-107); GLUCOSE 140 mg/dL (75-110); POTASSIUM 3.4 mmol/L (3.6-5.0); TOTAL PROTEIN 6.8 g/dL (6.3-8.2)
[2019-05-07 14:47] LABS: ANION GAP 9 (5-19); CARBON DIOXIDE 39 mmol/L (22-30)
[2019-05-07 15:24] VITALS: BP 103/61
--- NOTE | 2019-05-07 18:14 | XCELERA REPORT ---
[address] [place] [facility] [address] Lower Extremity Venous Evaluation Procedure: Color flow and duplex imaging of the veins of the left lower extremity as well as the right Common Femoral vein. Right Sided Venous Evaluation The right common femoral vein is fully compressible. Spontaneous and phasic flow is present in the right common femoral vein. Left Sided Venous Evaluation Normal vessel filling wall to wall, compression and augmentation as well as Colour flow down to the infrageniculate veins. Interpretation Summary No duplex evidence of DVT or obstruction in the left lower extremity nor in the right Common Femoral vein. Name: MAINE CANALES, STONE Jolley JR Age: 74 yrs Gender: Male : 1945 Patient Status: Emergency Patient Location: ER Study Date: 05/07/2019 02:36 PM Reason For Study: L lower leg swelling Ordering Physician: JAKE DERAS Performed By: Fannie Stewart : JAKE DERAS > Poli Rodriguez
== END 2019-05-07 15:26 | disposition home or self-care (01) ==
LOC: ER 12:49
DX: R60.0 Localized edema (principal); M79.89 Other specified soft tissue disorders; Z87.891 Personal history of nicotine dependence; I48.91 Unspecified atrial fibrillation; I10 Essential (primary) hypertension; J44.9 Chronic obstructive pulmonary disease, unspecified
CPT/HCPCS: 36415; 80053; 85025; 93971; 99284

== ENCOUNTER 2019-07-21 17:22 | Emergency (ER) | payer OTHER, MEDICARE ==
[2019-07-21 18:17] LABS: ABSOLUTE BASOPHILS # (AUTO) 0.1 10^3/uL (0.0-0.2); ABSOLUTE EOSINOPHILS # (AUTO) 0.1 10^3/uL (0.0-0.6); ABSOLUTE LYMPHOCYTES (AUTO) 1.4 10^3/uL (0.5-4.7); ABSOLUTE MONOCYTES (AUTO) 0.9 10^3/uL (0.1-1.4); BASOPHILS % (AUTO) 0.6 % (0-2); EOSINOPHILS % (AUTO) 1.4 % (0-6); LYMPHOCYTES % (AUTO) 14.8 % (13-45); MEAN CORPUSCULAR HEMOGLOBIN 26.7 pg (27.0-33.4); MEAN CORPUSCULAR HGB CONC 32.4 g/dL (32.0-36.0); MEAN CORPUSCULAR VOLUME 83 fl (80-97); MONOCYTES % (AUTO) 9.8 % (3-13); PLATELET COUNT 299 10^3/uL (150-450); RED BLOOD COUNT 3.75 10^6/uL (4.35-5.55); RED CELL DISTRIBUTION WIDTH 15.3 % (11.5-14.0); SEGMENTED NEUTROPHILS % (AUTO) 73.4 % (42-78); TOTAL CELLS COUNTED % (AUTO) 100 %; WHITE BLOOD COUNT 9.6 10^3/uL (4.0-10.5)
[2019-07-21 18:26] LABS: INTERNATIONAL RATION (INR) 2.46; PROTHROMBIN TIME 27.1 SEC (11.4-15.4)
[2019-07-21 18:43] LABS: ALBUMIN 3.7 g/dL (3.5-5.0); ALKALINE PHOSPHATASE 83 U/L (38-126); ASPARTATE AMINO TRANSFERASE 22 U/L (17-59); BILIRUBIN,DIRECT 0.1 mg/dL (0.0-0.4); BILIRUBIN,TOTAL 0.8 mg/dL (0.2-1.3); BLOOD UREA NITROGEN 14 mg/dL (7-20); CALCIUM 9.3 mg/dL (8.4-10.2); CHLORIDE 92 mmol/L (98-107); GLUCOSE 100 mg/dL (75-110); POTASSIUM 3.7 mmol/L (3.6-5.0); TOTAL PROTEIN 7.4 g/dL (6.3-8.2)
[2019-07-21 18:50] LABS: ANION GAP 8 (5-19)
[2019-07-21 18:51] LABS: CARBON DIOXIDE 42 mmol/L (22-30)
--- NOTE | 2019-07-21 20:04 | EKG REPORT ---
SEVERITY:- ABNORMAL ECG - SINUS OR ECTOPIC ATRIAL RHYTHM FIRST DEGREE AV BLOCK BORDERLINE RIGHT AXIS DEVIATION BORDERLINE PROLONGED QT INTERVAL : Confirmed by: Yelitza Flores MD 21-Jul-2019 20:04:09
--- NOTE | 2019-07-21 20:59 | ER Document Report ---
ED Extremity Problem, Lower - General Chief Complaint: Post Surgical Pain Stated Complaint: LUMP IN LEG Time Seen by Provider: 07/21/19 20:02 Primary Care Provider: [facility] [Primary Care Provider] - Follow up as needed Notes: is a 74 yo m w/ PMH diastolic heart failure stage III, COPD on 3 L baseline, morbid obesity, hypertension, aortic valve problem ending to the ED for right inguinal pain and swelling. Patient states that he had a cardiac catheterization performed this past Tuesday to evaluate his coronary arteries as he is scheduled to have his aortic valve replaced in mid August. Patient stat es that he noted some ecchymosis and swelling immediately after the procedure but feels as if it has been getting worse. The ecchymosis has now spread to the entire suprapubic region. He denies any significant pain with this. He states that his somewhat uncomfortable when he goes to get up and ambulate or moved feel as if his skin is sort of stuck together. He denies any chest pain, shortness of breath or lightheadedness. He is chronically on 3 L at all times for COPD and denies any change in his need of oxygen. Patient denies any fever chills, abdominal pain, nausea vomiting or diarrhea. He has been taking his Xarelto and started taking it again the day after his procedure. Patient denies any difficulty urinating or hesitancy. TRAVEL OUTSIDE OF THE [place] IN LAST 30 DAYS: No - Related Data Allergies/Adverse Reactions: codeine [Codeine] Allergy (Verified 02/27/18 16:15) Home Medications: Flomax. Lasix. Verapamil. Xarelto. Dronedarone. Gabapentin. Acetaminophen Past Medical History - Social History Smoking Status: Unknown if Ever Smoked Family History: Reviewed & Not Pertinent, CAD, CVA Patient has suicidal ideation: No Patient has homicidal ideation: No - Past Medical History Cardiac Medical History: Reports: Hx Atrial Fibrillation, Hx Congestive Heart Failure, Hx Hypercholesterolemia, Hx Hypertension Pulmonary Medical History: Reports: Hx COPD Renal/ Medical History: Denies: Hx Peritoneal Dialysis Musculoskeletal Medical History: Reports Hx Arthritis - back pain Psychiatric Medical History: Denies: Hx Depression Past Surgical History: Reports: Hx Appendectomy, Hx Cholecystectomy, Hx Herniorrhaphy, Hx Orthopedic Surgery - right shoulder surgery, Hx Tonsillectomy - Immunizations Hx Diphtheria, Pertussis, Tetanus Vaccination: Yes - Unknown Hx Pneumococcal Vaccination: 08/31/16 Review of Systems - Review of Systems Constitutional: See HPI EENT: No symptoms reported Cardiovascular: No symptoms reported Respiratory: No symptoms reported Gastrointestinal: No symptoms reported Genitourinary: No symptoms reported Male Genitourinary: No symptoms reported Musculoskeletal: No symptoms reported Skin: See HPI Hematologic/Lymphatic: No symptoms reported Neurological/Psychological: No symptoms reported Physical Exam - Vital signs Vitals: Temp Pulse BP Pulse Ox 98.0 F 75 129/69 H 88 L 07/21/19 17:30 07/21/19 17:30 07/21/19 17:30 07/21/19 17:30 Interpretation: Normal - General General appearance: Appears well, Alert - HEENT Head: Normocephalic, Atraumatic Eyes: Normal Pupils: PERRL - Respiratory Respiratory status: No respiratory distress Chest status: Nontender Breath sounds: Normal Chest palpation: Normal - Cardiovascular Rhythm: Regular Heart sounds: Normal auscultation Murmur: No - Abdominal Inspection: Normal Distension: No distension Bowel sounds: Normal Tenderness: Nontender Organomegaly: No organomegaly - Back Back: Normal, Nontender - Extremities General upper extremity: Normal inspection, Nontender, Normal color, Normal ROM, Normal temperature General lower extremity: Normal inspection, Nontender, Normal color, Normal ROM, Normal temperature, Normal weight bearing. No: Vanessa's sign - Neurological Neuro grossly intact: Yes Cognition: Normal Orientation: AAOx4 [place] Coma Scale Eye Opening: Spontaneous [place] Coma Scale Verbal: Oriented Fer Coma Scale Motor: Obeys Commands [place] Coma Scale Total: 15 Speech: Normal Motor strength normal: LUE, RUE, LLE, RLE Sensory: Normal - Psychological Associated symptoms: Normal affect, Normal mood - Skin Skin Temperature: Warm Skin Moisture: Dry Skin Color: Normal Course - Re-evaluation Re-evalutation: Patient is generally well-appearing and nontoxic. Initial vitals within normal limits. Differential diagnosis includes hematoma, vascular trauma, anemia, urinary outflow obstruction Labs were obtained from triage. Upon evaluation, the patient is noted to have large ecchymosis to the groin. However is not seem to be tender to palpation and is ambulating at his baseline. No urinary difficulties to suggest obstructive process. Will obtain CT to assess for vascular trauma versus hematoma. CBC and CMP both within normal limits. No change in H&H. Creatinine is stable. CT does not show evidence of hematoma or abscess formation and regular postoperative changes. There is interval growth from previous CT performed here of the adrenal mass from 5 cm to 8.3. However I discussed this with the patient and his son at length. They state that they are aware of this mass and the previous CT that they had performed was actually at the [facility] They are aware that it is approximately 7 to 8 cm in size. 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 He requested a printout of the radiology read of the CT which I provided to him. Patient instructed to follow-up with his primary care doctor as needed and given return precautions. - Vital Signs Vital signs: Temp Pulse Resp BP Pulse Ox 98 F 76 24 H 131/75 H 99 07/21/19 22:34 07/21/19 22:34 07/21/19 22:34 07/21/19 22:34 07/21/19 22:34 - Laboratory Result Diagrams: 07/21/19 18:00 07/21/19 18:00 Laboratory results interpreted by me: 07/21/19 07/21/19 07/21/19 18:00 18:00 18:00 RBC 3.75 L Hgb 10.0 L Hct 31.0 L MCH 26.7 L RDW 15.3 H PT 27.1 H Chloride 92 L Carbon Dioxide 42 H* Discharge - Discharge Clinical Impression: Ecchymosis, S/P cardiac catheterization Groin discomfort Qualifiers: Laterality: right Qualified Code(s): R10.31 - Right lower quadrant pain Condition: Good Disposition: HOME, SELF-CARE Additional Instructions: I would recommend that you start applying heat to the area to help promote blood flow and therefore return to the blood back to the heart. As much as you can, try to elevate the area. Follow-up with your technology strategist or primary care doctor as needed. If you develop worsening swelling, pain, or worsening ability to walk, return to the ED for further evaluation. Referrals: [facility] [Primary Care Provider] - Follow up as needed
--- NOTE | 2019-07-21 21:37 | RADIOLOGY REPORT (SQ) ---
CT ABDOMEN PELVIS WITH IV CONTRAST EXAM DATE: 07/21/2019 8:31 PM MAPPING SUPERVISOR HISTORY: Right flank pain. COMPARISON: 09/24/2017 TECHNIQUE: CT scan of the abdomen and pelvis was performed with IV contrast. This exam was performed according to our departmental dose-optimization program, which includes automated exposure control, adjustment of the mA and/or kV according to patient size and/or use of iterative reconstruction technique. FINDINGS: Scattered atelectasis bases without pleural or pericardial effusion. Liver, spleen, pancreas, right adrenal gland, kidneys, and pelvic organs are normal. 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 Simple cysts in both kidneys. No hydronephrosis. The small and large bowel are normal. No evidence of appendicitis. No intraperitoneal free fluid or free air is seen. Aorta is diffusely atherosclerotic. No acute bony findings are identified. There is inflammatory stranding in the right groin. Mildly reactive right inguinal lymph nodes. No focal fluid collection, abscess, or hematoma is seen. IMPRESSION: 1. Inflammatory changes in the right groin without hematoma or abscess. 2. Interval increase in size of left adrenal bilobed mass. Consider dedicated contrast-enhanced MRI for complete evaluation.
[2019-07-21 22:03] VITALS: BP 131/75
== END 2019-07-21 22:34 | disposition home or self-care (01) ==
LOC: ER 17:22
DX: R10.31 Right lower quadrant pain (principal); R19.03 Right lower quadrant abdominal swelling, mass and lump; G89.18 Other acute postprocedural pain; R58 Hemorrhage, not elsewhere classified; E66.01 Morbid (severe) obesity due to excess calories; Z99.81 Dependence on supplemental oxygen; I11.0 Hypertensive heart disease with heart failure; I50.30 Unspecified diastolic (congestive) heart failure; J44.9 Chronic obstructive pulmonary disease, unspecified; Z98.890 Other specified postprocedural states
CPT/HCPCS: 36415; 74177; 80053; 85025; 85610; 93005; 93010; 99284

== ENCOUNTER 2019-08-30 13:11 | Emergency (ER) | payer OTHER, MEDICARE ==
[2019-08-30] MEDS ORDERED: PANTOPRAZOLE SODIUM 40 MG VIAL IV ONE (14:14)
--- NOTE | 2019-08-30 14:19 | ER Document Report ---
ED Medical Screen (RME) - General Chief Complaint: Rectal Bleeding Stated Complaint: RECTAL BLEEDING Time Seen by Provider: 08/30/19 14:04 Primary Care Provider: [facility] [Primary Care Provider] - Follow up as needed TRAVEL OUTSIDE OF THE [place] IN LAST 30 DAYS: No - HPI Notes: 08/30/19 14:15 74-year-old male with a history of COPD on 3L NC, CHF, hypertension, aortic valve dysfunction presents the emergency room for dark red rectal bleeding that started today. Patient states he has had diarrhea for over 1 week. Patient does take Xarelto since 2017 for A. fib and states he is getting a heart valve replacement done this upcoming Tuesday. Denies any nausea or vomiting. Last colonoscopy was done in 2016, unsure of results. Denies any trauma to the abdomen, denies any hemoptysis. Does report generalized weakness. Denies any chest pain shortness of breath, nausea or vomiting, abdominal pain. Denies any recent antibiotic use. Denies prior history of gastric ulcers, bleeding disorders, unsure if his colon[facility] did have polyps [facility] I have greeted and performed a rapid initial assessment of this patient. A comprehensive ED assessment and evaluation of the patient, analysis of test results and completion of the medical decision making process will be conducted by additional ED providers. PHYSICAL EXAMINATION: GENERAL: Chronically ill, well nourished and in no acute distress. HEAD: Atraumatic, normocephalic. NECK: Normal range of motion CV: s1, s2 regular LUNGS: No respiratory distress Musculoskeletal: Normal range of motion NEUROLOGICAL: Normal speech, normal gait. SKIN: Warm, Dry, normal turgor, no rashes or lesions noted. - Related Data Allergies/Adverse Reactions: codeine [Codeine] Allergy (Intermediate, Verified 08/30/19 13:49) Facial swelling Home Medications: flomax, lasix, verapamil, centrum, gabapentin, tylenol, dronedarone, rivaroxaban Past Medical History - Social History Chew tobacco use (# tins/day): No Frequency of alcohol use: None Drug Abuse: None - Past Medical History Cardiac Medical History: Reports: Hx Atrial Fibrillation, Hx Congestive Heart Failure, Hx Hypercholesterolemia, Hx Hypertension Pulmonary Medical History: Reports: Hx COPD Renal/ Medical History: Denies: Hx Peritoneal Dialysis Musculoskeltal Medical History: Reports Hx Arthritis - back pain Psychiatric Medical History: Denies: Hx Depression Past Surgical History: Reports: Hx Appendectomy, Hx Cholecystectomy, Hx Herniorrhaphy, Hx Orthopedic Surgery - right shoulder surgery, Hx Tonsillectomy - Immunizations Hx Diphtheria, Pertussis, Tetanus Vaccination: Yes - Unknown Physical Exam - Vital signs Vitals: Temp Pulse Resp BP Pulse Ox 98.8 F 80 18 109/52 L 93 08/30/19 13:16 08/30/19 13:16 08/30/19 13:16 08/30/19 13:16 08/30/19 13:16 Course - Vital Signs Vital signs: Temp Pulse Resp BP Pulse Ox 98.8 F 80 18 109/52 L 93 08/30/19 13:16 08/30/19 13:16 08/30/19 13:16 08/30/19 13:16 08/30/19 13:16 Doctor's Discharge - Discharge Referrals: [facility] [Primary Care Provider] - Follow up as needed
--- NOTE | 2019-08-30 14:51 | RADIOLOGY REPORT (SQ) ---
EXAM DESCRIPTION: CHEST SINGLE VIEW COMPLETED DATE/TIME: 08/30/2019 2:35 pm REASON FOR STUDY: weakness, rectal bleeding COMPARISON: 11/13/2015. EXAM PARAMETERS: NUMBER OF VIEWS: One view. TECHNIQUE: Single frontal radiographic view of the chest acquired. RADIATION DOSE: NA LIMITATIONS: None. FINDINGS: LUNGS AND PLEURA: Mild basilar scarring. No infiltrates, masses or pneumothorax. No pleur al effusion. MEDIASTINUM AND HILAR STRUCTURES: No masses. Contour normal. HEART AND VASCULAR STRUCTURES: Heart normal in size. Normal vasculature. BONES: No acute findings. Degenerative changes in the spine. HARDWARE: Pacemaker. OTHER: No other significant finding. IMPRESSION: NO ACUTE RADIOGRAPHIC FINDING IN THE CHEST. TECHNICAL DOCUMENTATION: JOB ID: [id number] [employer]- All Rights Reserved Reading location - IP/workstation name: [email or web address]
[2019-08-30 14:52] LABS: ABSOLUTE BASOPHILS # (AUTO) 0.1 10^3/uL (0.0-0.2); ABSOLUTE EOSINOPHILS # (AUTO) 0.1 10^3/uL (0.0-0.6); ABSOLUTE LYMPHOCYTES (AUTO) 1.2 10^3/uL (0.5-4.7); ABSOLUTE MONOCYTES (AUTO) 1.8 10^3/uL (0.1-1.4); ABSOLUTE NEUT (AUTO) 11.5 10^3/uL (1.7-8.2); BASOPHILS % (AUTO) 0.9 % (0-2); EOSINOPHILS % (AUTO) 0.6 % (0-6); HEMATOCRIT 32.3 % (37.9-51.0); HEMOGLOBIN 10.6 g/dL (13.5-17.0); MEAN CORPUSCULAR HEMOGLOBIN 28.7 pg (27.0-33.4); MEAN CORPUSCULAR VOLUME 87 fl (80-97); MONOCYTES % (AUTO) 12.2 % (3-13); PLATELET COUNT 269 10^3/uL (150-450); RED BLOOD COUNT 3.71 10^6/uL (4.35-5.55); RED CELL DISTRIBUTION WIDTH 17.7 % (11.5-14.0); SEGMENTED NEUTROPHILS % (AUTO) 78.3 % (42-78); TOTAL CELLS COUNTED % (AUTO) 100 %; WHITE BLOOD COUNT 14.7 10^3/uL (4.0-10.5)
[2019-08-30 14:58] LABS: INTERNATIONAL RATION (INR) 3.03
[2019-08-30 14:59] LABS: PARTIAL THROMBOPLASTIN TIME 49.6 SEC (23.5-35.8)
[2019-08-30 15:19] LABS: ALBUMIN 3.7 g/dL (3.5-5.0); ALKALINE PHOSPHATASE 136 U/L (38-126); ASPARTATE AMINO TRANSFERASE 147 U/L (17-59); BILIRUBIN,DIRECT 0.3 mg/dL (0.0-0.4); BILIRUBIN,TOTAL 1.7 mg/dL (0.2-1.3); BLOOD UREA NITROGEN 25 mg/dL (7-20); CALCIUM 9.7 mg/dL (8.4-10.2); CHLORIDE 82 mmol/L (98-107); GLUCOSE 123 mg/dL (75-110); POTASSIUM 3.1 mmol/L (3.6-5.0); TOTAL PROTEIN 7.3 g/dL (6.3-8.2)
[2019-08-30 15:27] LABS: ANION GAP 11 (5-19)
[2019-08-30 15:28] LABS: TROPONIN I 0.014 ng/mL
[2019-08-30 15:30] LABS: CARBON DIOXIDE 42 mmol/L (22-30)
[2019-08-30 16:46] LABS: VENOUS BLOOD BASE EXCESS 17.1 mmol/L; VENOUS BLOOD HCO3 45.9 mmol/L (20-32); VENOUS BLOOD PH 7.37 (7.30-7.42)
[2019-08-30 16:48] LABS: VENOUS BLOOD PCO2 80.9 mmHg (35-63)
--- NOTE | 2019-08-30 18:54 | ER Document Report ---
ED General - General Chief Complaint: Rectal Bleeding Stated Complaint: RECTAL BLEEDING Time Seen by Provider: 08/30/19 14:04 Primary Care Provider: [facility] [Primary Care Provider] - Follow up as needed Information source: Relative - Son also is present in the room as historian as well. TRAVEL OUTSIDE OF THE [place] IN LAST 30 DAYS: No - HPI Onset: This morning - This morning patient began with bloody stools. However he has had 2 weeks of diarrhea. He has been treated with 3 iron shots and a ferritin shot this morning by his nurse. He is scheduled for aortic valve repair next week. His son already called [facility] about this. Onset/Duration: Sudden Quality of pain: Other - He was given Imodium by his son beginning last night for his diarrhea. He also had 2 capsules today. Severity: Mild Pain Level: 2 - Planes of left lower quadrant abdominal pain because he has a kidney tumor. He was scheduled for a tumor biopsy however his heart valve proved to need repair and therefore he was scheduled for heart repair prior to kidney biopsy. Patient is been on blood thinners for several years now. - Related Data Allergies/Adverse Reactions: codeine [Codeine] Allergy (Intermediate, Verified 08/30/19 13:49) Facial swelling Home Medications: flomax, lasix, verapamil, centrum, gabapentin, tylenol, dronedarone, rivaroxaban Past Medical History - General Information source: Patient, Relative - Social History Smoking Status: Former Smoker Cigarette use (# per day): No Chew tobacco use (# tins/day): No Smoking Education Provided: Yes Frequency of alcohol use: None Drug Abuse: None Lives with: Alone - He lives alone however his son is very dutiful and a good historian and lives close. Family History: Reviewed & Not Pertinent, CAD, CVA Patient has suicidal ideation: No Patient has homicidal ideation: No - Past Medical History Cardiac Medical History: Reports: Hx Atrial Fibrillation, Hx Congestive Heart Failure, Hx Hypercholesterolemia, Hx Hypertension Pulmonary Medical History: Reports: Hx COPD Renal/ Medical History: Denies: Hx Peritoneal Dialysis Musculoskeletal Medical History: Reports Hx Arthritis - back pain Psychiatric Medical History: Denies: Hx Depression Past Surgical History: Reports: Hx Appendectomy, Hx Cholecystectomy, Hx Herniorrhaphy, Hx Orthopedic Surgery - right shoulder surgery, Hx Tonsillectomy - Immunizations Hx Diphtheria, Pertussis, Tetanus Vaccination: Yes - Unknown Hx Pneumococcal Vaccination: 08/31/16 Review of Systems - Review of Systems Constitutional: Malaise, Weakness EENT: Other - he has a dry mouth and has been taking extra Lasix in order to get the edema out of his legs. Patient usually drinks Sprite or tea but no water. Gastrointestinal: Abdomen distended, Abdominal pain, Diarrhea, Blood streaked bowels, Black stools, Rectal bleeding Physical Exam - Vital signs Vitals: Temp Pulse Resp BP Pulse Ox 98.8 F 80 18 109/52 L 93 08/30/19 13:16 08/30/19 13:16 08/30/19 13:16 08/30/19 13:16 08/30/19 13:16 Interpretation: Hypotensive - HEENT Head: Normocephalic Eyes: Normal Conjunctiva: Normal Cornea: Normal Extraocular movements intact: Yes Eyelashes: Normal Ears: Normal Pharynx: Normal - Respiratory Respiratory status: No respiratory distress Chest status: Nontender Breath sounds: Normal - Cardiovascular Rhythm: Regular - Patient on 2 heart medications; both beta-yuki and calcium yuki Murmur: Yes - Right greater than left aortic harsh ring murmur Friction rub: Yes Trev's crunch: No - Abdominal Inspection: Other - Mildly distended Bowel sounds: Hyperactive Tenderness: Tender - LLQ palpation - Extremities General upper extremity: Nontender General lower extremity: Edema - S1 pitting edema bilaterally Shoulder: Normal Arm: Normal Forearm: Normal Hip: Normal Thigh: Normal Knee: Normal Ankle: Edema Foot: Edema Course - Vital Signs Vital signs: Temp Pulse Resp BP Pulse Ox 98.0 F 74 16 113/62 95 08/31/19 16:23 08/31/19 16:23 08/31/19 16:23 08/31/19 16:23 08/31/19 16:23 - Laboratory Result Diagrams: 08/31/19 13:16 08/30/19 14:33 Laboratory results interpreted by me: 08/30/19 08/30/19 08/30/19 14:33 14:33 14:33 WBC 14.7 H RBC 3.71 L Hgb 10.6 L Hct 32.3 L RDW 17.7 H Lymph % (Auto) 8.0 L Absolute Neuts (auto) 11.5 H Absolute Monos (auto) 1.8 H Seg Neutrophils % 78.3 H PT 32.0 H APTT 49.6 H VBG pCO2 VBG HCO3 Sodium 134.8 L Potassium 3.1 L Chloride 82 L Carbon Dioxide 42 H* BUN 25 H Creatinine 1.87 H Est GFR ( Amer) 43 L Est GFR (MDRD) Non-Af 35 L Glucose 123 H Total Bilirubin 1.7 H AST 147 H Alkaline Phosphatase 136 H Crossmatch 08/30/19 08/30/19 08/31/19 15:30 16:17 13:16 WBC 11.7 H RBC 4.22 L Hgb 12.3 L Hct 36.4 L RDW 17.5 H Lymph % (Auto) 6.2 L Absolute Neuts (auto) 9.4 H Absolute Monos (auto) Seg Neutrophils % 80.4 H PT APTT VBG pCO2 80.9 H* VBG HCO3 45.9 H Sodium Potassium Chloride Carbon Dioxide BUN Creatinine Est GFR ( Amer) Est GFR (MDRD) Non-Af Glucose Total Bilirubin AST Alkaline Phosphatase Crossmatch See Detail - Diagnostic Test Radiology reviewed: Reports reviewed Critical Care Note - Critical Care Note Comments: Complications include transfer to [facility] because of 42 bed deep in the ER and no beds for the hospital after I spoke with both the load out worker Dr. Redding and with aligner typewriter Dr. Devon Bryan.. They both advised there are no beds at [facility]. I advised the patient and patient's son about these facts. We will therefore attempt to transfer to [facility] or [place]. patient's son reports that he had multiple scopes and 2017 with multiple polyps but no GI bleed Spoke with transfer center at [facility] and I was referred to the bowling ball grader and marker who accepted the patient however did not get names to either the transfer center personnel or the bowling ball grader and marker at 2150 Discharge - Discharge Clinical Impression: Colitis GI bleed Qualifiers: GI bleed type/associated pathology: unspecified gastrointestinal hemorrhage type Qualified Code(s): K92.2 - Gastrointestinal hemorrhage, unspecified Condition: Fair Disposition: [facility] Referrals: [facility] [Primary Care Provider] - Follow up as needed
[2019-08-30] MEDS ORDERED: FAMOTIDINE INJ/PF 20 MG/2 ML SDV IV ONE (19:05)
[2019-08-30] MEDS ORDERED: NORMAL SALINE 500 ML IV ONE ×2 (19:06→21:41)
--- NOTE | 2019-08-30 19:46 | RADIOLOGY REPORT (SQ) ---
EXAM DESCRIPTION: CT ABD/PELVIS NO ORAL OR IV COMPLETED DATE/TIME: 08/30/2019 7:28 pm REASON FOR STUDY: llq pain kidney tumor COMPARISON: 07/21/2019c TECHNIQUE: CT scan of the abdomen and pelvis performed without intravenous or oral contrast. Images reviewed with lung, soft tissue, and bone windows. Reconstructed coronal and sagittal MPR images revi ewed. All images stored on PACS. All CT scanners at this facility use dose modulation, iterative reconstruction, and/or weight based d osing when appropriate to reduce radiation dose to as low as reasonably achievable (ALARA). [facility]: Dose Right [facility]: CareDose [facility]: Dose Right [facility]: Teradose 4D [facility]: [employer] RADIATION DOSE: mGy. LIMITATIONS: None. FINDINGS: LOWER CHEST: Dependent atelectasis in both lung bases. NON-CONTRASTED LIVER, SPLEEN, ADRENALS: Liver and spleen are normal. Once again there is a bilobed o r perhaps even 2 left adrenal masses. There is no interval change. PANCREAS: No masses. No peripancreatic inflammatory changes. GALLBLADDER: Surgically absent. RIGHT KIDNEY AND URETER: No suspicious masses. Assessment limited by lack of IV contrast. No signif icant calcifications. No hydronephrosis or hydroureter. LEFT KIDNEY AND URETER: 2.5 cm apparently solid mass arising anteriorly from the left kidney on image 36 series 3. . Assessment limited by lack of IV contrast. No significant calcifications. No hyd ronephrosis or hydroureter. AORTA AND RETROPERITONEUM: No aneurysm. No retroperitoneal masses or adenopathy. BOWEL AND PERITONEAL CAVITY: Mild diverticulosis with no associated acute inflammation. APPENDIX: Surgically absent. PELVIS, BLADDER, AND ABDOMINAL WALL:Urinary bladder is normal. No pelvic mass or fluid collection. Uncomplicated small right inguinal hernia. BONES: No significant findings. OTHER: No other significant finding. IMPRESSION: Left adrenal mass or masses, stable. Apparent solid mass on the left kidney appears sta ble. Mild diverticulosis coli. Uncomplicated small right inguinal hernia. Dependent atelectasis in the lung bases. COMMENT: Quality ID # [id number]: Final reports with documentation of one or more dose reduction techniques (e.g., Automated exposure control, adjustment of the mA and/or kV according to patient size, use of iterative reconstruction technique) TECHNICAL DOCUMENTATION: JOB ID: [id number] 2372[employer]- All Rights Reserved Reading location - IP/workstation name: [email or web address]
[2019-08-30] MEDS ORDERED: LEVOFLOXACIN 750 MG/D5W RTU 750 MG/150 ML RTUPB IV ONE (19:57)
[2019-08-30] MEDS ORDERED: CEFTRIAXONE INJ 1000 MG VIAL IV ONE (19:57)
[2019-08-30] MEDS ORDERED: NORMAL SALINE 250 ML IV PRN (21:25)
[2019-08-30] MEDS: NORMAL SALINE 250 ML IV PRN (23:15)
[2019-08-31] MEDS: NORMAL SALINE 250 ML IV PRN (02:35)
[2019-08-31 13:33] LABS: ABSOLUTE EOSINOPHILS # (AUTO) 0.1 10^3/uL (0.0-0.6); ABSOLUTE LYMPHOCYTES (AUTO) 0.7 10^3/uL (0.5-4.7); ABSOLUTE MONOCYTES (AUTO) 1.4 10^3/uL (0.1-1.4); ABSOLUTE NEUT (AUTO) 9.4 10^3/uL (1.7-8.2); BASOPHILS % (AUTO) 0.3 % (0-2); HEMATOCRIT 36.4 % (37.9-51.0); HEMOGLOBIN 12.3 g/dL (13.5-17.0); LYMPHOCYTES % (AUTO) 6.2 % (13-45); MEAN CORPUSCULAR HGB CONC 33.7 g/dL (32.0-36.0); MEAN CORPUSCULAR VOLUME 86 fl (80-97); MONOCYTES % (AUTO) 12.1 % (3-13); PLATELET COUNT 226 10^3/uL (150-450); RED BLOOD COUNT 4.22 10^6/uL (4.35-5.55); RED CELL DISTRIBUTION WIDTH 17.5 % (11.5-14.0); SEGMENTED NEUTROPHILS % (AUTO) 80.4 % (42-78); TOTAL CELLS COUNTED % (AUTO) 100 %; WHITE BLOOD COUNT 11.7 10^3/uL (4.0-10.5)
--- NOTE | 2019-08-31 15:13 | ER Document Report ---
Doctor's Note Notes: 08/31/19 15:12 This MD discussed patient's case with Dr. Underwood, hospitalist at [facility]. He accepted the patient for transfer to his facility for further evaluation of the patient's GI bleed. In addition the patient is scheduled to have a procedure done on his aortic valve at [facility] on 09/03/2019.
--- NOTE | 2019-08-31 16:20 | ER Document Report ---
Doctor's Note Notes: 08/31/19 16:19 Patient preparing to leave this ED for transport to [facility]. This MD went to the bedside of the patient as he was being moved into the stretcher. Patient is alert and oriented x4 and appears to be in no acute distress at time of transport.
[2019-08-31 16:24] VITALS: BP 113/62
== END 2019-08-31 16:23 | disposition short-term general hospital (02) ==
LOC: ER 13:11
DX: K52.9 Noninfective gastroenteritis and colitis, unspecified (principal); K92.2 Gastrointestinal hemorrhage, unspecified; K92.1 Melena; I48.91 Unspecified atrial fibrillation; R53.81 Other malaise; R53.1 Weakness; R14.0 Abdominal distension (gaseous); D49.512 Neoplasm of unspecified behavior of left kidney; I11.0 Hypertensive heart disease with heart failure; I50.9 Heart failure, unspecified; Z79.01 Long term (current) use of anticoagulants; Z79.899 Other long term (current) drug therapy; Z87.891 Personal history of nicotine dependence
CPT/HCPCS: 99285; 96361; 96375; 96365; 96368; 86900; 86901; 36415; 87040; 87045; 87205; 36430; 86850; 83605; 85025; 85610; 85730; 80053; 84484; 86920; 82803; 83880; 71045; 74176; P9016; C9113; J0696; J7050 ×2; J7040 ×2; S0028; J1956

== ENCOUNTER 2019-10-25 09:17 | Emergency (ER) | payer OTHER, MEDICARE ==
--- NOTE | 2019-10-25 10:05 | ER Document Report ---
ED Medical Screen (RME) - General Chief Complaint: Diarrhea Stated Complaint: DIARRHEA Time Seen by Provider: 10/25/19 09:47 Primary Care Provider: GUY,ZULEMA [Primary Care Provider] - Follow up as needed Mode of Arrival: Wheelchair Information source: Patient Notes: Patient is a 74-year-old male with multiple comorbidities presenting to the emergency department chief complaint of watery diarrhea that started 2 days ago. Patient reports no vomiting, nausea or fever. He does report that the last time he came to the emergency department for diarrhea he had such electrolyte abnormalities that he went into cardiac arrest. He does appear to be mildly short of breath but he does have extensive respiratory history and is on home oxygen. I have greeted and performed a rapid initial assessment of this patient. A comprehensive ED assessment and evaluation of the patient, analysis of test results and completion of the medical decision making process will be conducted by additional ED providers. I have specifically instructed the patient or family members with the patient to immediately return to any nursing staff should anything change in the patient's condition or with their chief complaint. TRAVEL OUTSIDE OF THE [place] IN LAST 30 DAYS: No - Related Data Allergies/Adverse Reactions: codeine [Codeine] Allergy (Intermediate, Verified 08/30/19 13:49) Facial swelling Past Medical History - Social History Frequency of alcohol use: None Drug Abuse: None - Past Medical History Cardiac Medical History: Reports: Hx Atrial Fibrillation, Hx Congestive Heart Failure, Hx Hypercholesterolemia, Hx Hypertension Pulmonary Medical History: Reports: Hx COPD Renal/ Medical History: Denies: Hx Peritoneal Dialysis Musculoskeltal Medical History: Reports Hx Arthritis - back pain Psychiatric Medical History: Denies: Hx Depression Past Surgical History: Reports: Hx Appendectomy, Hx Cholecystectomy, Hx Herniorrhaphy, Hx Orthopedic Surgery - right shoulder surgery, Hx Tonsillectomy - Immunizations Hx Diphtheria, Pertussis, Tetanus Vaccination: Yes - Unknown Physical Exam - Vital signs Vitals: Temp Pulse Resp BP Pulse Ox 98.8 F 71 24 H 115/64 91 L 10/25/19 09:33 10/25/19 09:33 10/25/19 09:33 10/25/19 09:33 10/25/19 09:33 Course - Vital Signs Vital signs: Temp Pulse Resp BP Pulse Ox 98.8 F 71 24 H 115/64 91 L 10/25/19 09:33 10/25/19 09:33 10/25/19 09:33 10/25/19 09:33 10/25/19 09:33 Doctor's Discharge - Discharge [facility]errals: [facility] [[facility]] - Follow up as needed
--- NOTE | 2019-10-25 11:03 | RADIOLOGY REPORT (SQ) ---
EXAM DESCRIPTION: CHEST SINGLE VIEW COMPLETED DATE/TIME: 10/25/2019 10:31 am REASON FOR STUDY: diarrhea, dyspnea COMPARISON: 08/30/2019 NUMBER OF VIEWS: One view. TECHNIQUE: Single frontal radiographic image of the chest acquired. LIMITATIONS: None. FINDINGS: LUNGS AND PLEURA: Chronic scarring in the left base. No infiltrate. MEDIASTINUM AND HEART: Stable heart size and mediastinal structures. SUPPORT DEVICES: Appropriate location without change. BONY STRUCTURES: No acute findings. HARDWARE: None. OTHER: No other significant finding. IMPRESSION: No acute findings in the chest. Reading location - IP/workstation name: [email or web address]
[2019-10-25 11:30] LABS: ABSOLUTE BASOPHILS # (AUTO) 0.1 10^3/uL (0.0-0.2); ABSOLUTE LYMPHOCYTES (AUTO) 0.7 10^3/uL (0.5-4.7); ABSOLUTE MONOCYTES (AUTO) 1.1 10^3/uL (0.1-1.4); ABSOLUTE NEUT (AUTO) 10.1 10^3/uL (1.7-8.2); BASOPHILS % (AUTO) 0.5 % (0-2); EOSINOPHILS % (AUTO) 0.3 % (0-6); HEMATOCRIT 33.9 % (37.9-51.0); HEMOGLOBIN 11.3 g/dL (13.5-17.0); LYMPHOCYTES % (AUTO) 6.1 % (13-45); MEAN CORPUSCULAR HEMOGLOBIN 29.9 pg (27.0-33.4); MEAN CORPUSCULAR HGB CONC 33.2 g/dL (32.0-36.0); MEAN CORPUSCULAR VOLUME 90 fl (80-97); MONOCYTES % (AUTO) 9.3 % (3-13); PLATELET COUNT 202 10^3/uL (150-450); RED BLOOD COUNT 3.76 10^6/uL (4.35-5.55); SEGMENTED NEUTROPHILS % (AUTO) 83.8 % (42-78); TOTAL CELLS COUNTED % (AUTO) 100 %; WHITE BLOOD COUNT 12.1 10^3/uL (4.0-10.5)
[2019-10-25 11:54] LABS: ALBUMIN 3.6 g/dL (3.5-5.0); ALKALINE PHOSPHATASE 110 U/L (38-126); ASPARTATE AMINO TRANSFERASE 55 U/L (17-59); BILIRUBIN,TOTAL 1.1 mg/dL (0.2-1.3); BLOOD UREA NITROGEN 13 mg/dL (7-20); CALCIUM 9.2 mg/dL (8.4-10.2); CHLORIDE 94 mmol/L (98-107); GLUCOSE 114 mg/dL (75-110); POTASSIUM 4.2 mmol/L (3.6-5.0); TOTAL PROTEIN 6.8 g/dL (6.3-8.2)
[2019-10-25 12:01] LABS: ANION GAP 5 (5-19)
[2019-10-25 12:04] LABS: CARBON DIOXIDE 40 mmol/L (22-30)
[2019-10-25 13:26] VITALS: BP 118/64
--- NOTE | 2019-10-25 13:41 | ER Document Report ---
ED General - General Chief Complaint: Diarrhea Stated Complaint: DIARRHEA Time Seen by Provider: 10/25/19 09:47 [facility] Care Provider: [facility] [[facility]] - Follow up as needed Mode of Arrival: Wheelchair Information source: Patient, Relative Notes: Patient is a pleasant 74-year-old male presenting to the emergency department chief complaint of 3 days of diarrhea. Patient states it is just moderate loose stools fairly frequently he states that he has not traveled anywhere denies any sick contacts or bad food exposure. Patient further reports having had aortic valve replacement a month and a half ago after that he had a colonoscopy which was negative. No one else at home is similarly ill. TRAVEL OUTSIDE OF THE [place] IN LAST 30 DAYS: No - HPI Onset: Last week Onset/Duration: Gradual, Intermittent Quality of pain: No pain Severity: None Pain Level: Denies Associated symptoms: Diarrhea Exacerbated by: Denies Relieved by: Denies Similar symptoms previously: No Recently seen / treated by doctor: No - Related Data Allergies/Adverse Reactions: codeine [Codeine] Allergy (Intermediate, Verified 08/30/19 13:49) Facial swelling Past Medical History - General Information source: Patient - Social History Smoking Status: Former Smoker Frequency of alcohol use: None Drug Abuse: None Lives with: Family Family History: Reviewed & Not Pertinent, CAD, CVA Patient has suicidal ideation: No Patient has homicidal ideation: No - Past Medical History Cardiac Medical History: Reports: Hx Atrial Fibrillation, Hx Congestive Heart Failure, Hx Hypercholesterolemia, Hx Hypertension Pulmonary Medical History: Reports: Hx COPD Renal/ Medical History: Denies: Hx Peritoneal Dialysis Musculoskeletal Medical History: Reports Hx Arthritis - back pain Psychiatric Medical History: Denies: Hx Depression Past Surgical History: Reports: Hx Appendectomy, Hx Cholecystectomy, Hx Herniorrhaphy, Hx Orthopedic Surgery - right shoulder surgery, Hx Tonsillectomy - Immunizations Hx Diphtheria, Pertussis, Tetanus Vaccination: Yes - Unknown Hx Pneumococcal Vaccination: 08/31/16 Review of Systems - Review of Systems Constitutional: No symptoms reported EENT: No symptoms reported Cardiovascular: No symptoms reported Respiratory: No symptoms reported Gastrointestinal: See HPI Genitourinary: No symptoms reported Male Genitourinary: No symptoms reported Musculoskeletal: No symptoms reported Skin: No symptoms reported Hematologic/Lymphatic: No symptoms reported Neurological/Psychological: No symptoms reported Physical Exam - Vital signs Vitals: Temp Pulse Resp BP Pulse Ox 98.8 F 71 24 H 115/64 91 L 10/25/19 09:33 10/25/19 09:33 10/25/19 09:33 10/25/19 09:33 10/25/19 09:33 - Notes Notes: PHYSICAL EXAMINATION: GENERAL: Well-appearing, well-nourished and in no acute distress. HEAD: Atraumatic, normocephalic. EYES: Pupils equal round and reactive to light, extraocular movements intact, sclera anicteric, conjunctiva are normal. ENT: nares patent, oropharynx clear without exudates. Moist mucous membranes. NECK: Normal range of motion, supple without lymphadenopathy, no appreciable JVD LUNGS: Lungs clear to auscultation bilaterally and equal. No wheezes rales or rhonchi. HEART: Regular rate and rhythm, patient does have a 3/6 systolic murmur over the left chest anterior wall ABDOMEN: Soft, nontender, slightly increased bowel sounds. No guarding, no rebound. No masses appreciated. EXTREMITIES: Active full range of motion, patient does have 2+ edema to the lower extremities patient states he has not taken his Lasix for couple of days because of the diarrhea.. No cyanosis. 2+ pulses x4 NEUROLOGICAL: No focal neurological deficits. Moves all extremities spon taneously and on command. SKIN: Warm, Dry, and intact. Normal turgor, no rashes or lesions noted. Course - Re-evaluation Re-evalutation: 10/25/19 13:40 Patient has been reevaluated several times while in the emergency department. Patient has remained stable without decompensation. Patient has not had any diarrhea bowel movements while in the emergency department. We did discuss the laboratory findings. Patient is recommended to take Imodium as prescribed. Patient is to follow-up with primary care provider in the next couple of days. Patient is agreeable with care plan and stable at time of discharge. - Vital Signs Vital signs: Temp Pulse Resp BP Pulse Ox 98.8 F 71 12 118/64 95 10/25/19 09:33 10/25/19 09:33 10/25/19 13:01 10/25/19 13:01 10/25/19 13:01 - Laboratory Result Diagrams: 10/25/19 11:18 10/25/19 11:18 Laboratory results interpreted by me: 10/25/19 10/25/19 11:18 11:18 WBC 12.1 H RBC 3.76 L Hgb 11.3 L Hct 33.9 L RDW 16.0 H Lymph % (Auto) 6.1 L Absolute Neuts (auto) 10.1 H Seg Neutrophils % 83.8 H Chloride 94 L Carbon Dioxide 40 H* Glucose 114 H - Diagnostic Test Radiology reviewed: Reports reviewed Discharge - Discharge Clinical Impression: Diarrhea Qualifiers: Diarrhea type: unspecified type Qualified Code(s): R19.7 - Diarrhea, unspecified Condition: Stable Disposition: HOME, SELF-CARE Additional Instructions: Diarrhea Diarrhea means frequent, watery stools. There are many causes. Any problem that keeps the intestinal tract from absorbing water from the stool can lead to diarrhea. A sudden new diarrhea problem is usually caused by a virus, food sen sitivity, toxic bacteria, or drugs. In this case, we expect the problem to go away soon. Testing is done only if you seem seriously ill from the diarrhea. If you have chronic diarrhea, or diarrhea that keeps coming back, we need to find out why. Chronic diarrhea can be due to inflammation of the bowels such as Crohn's disease or ulcerative colitis, food sensitivity such as intolerance to lactose or wheat protein, irritable bowel syndrome, and other problems. If your diarrhea is a significant problem but it's not clear why you have it, we'll refer you to a specialist for further testing. During an episode of diarrhea, drink small amounts (two to six ounces) of clear liquids (soft drinks, sport drinks, herb teas, broth, etc). Take fluids frequently to prevent dehydration. It's usually not a problem to take mild anti- diarrhea medication such as Kaopectate or Pepto-Bismol. As the diarrhea eases, advance to small amounts of bland food (mashed potato, toast) for 24 hours. Call the physician if blood appears in your vomit or stool, if vomiting lasts longer than 24 hours, if the abdominal pain worsens or becomes localized to one area, if you develop high fever, or if you become lightheaded and weak. Prescriptions: Loperamide HCl [Imodium A-D] 2 mg PO BID #12 tablet Referrals: [facility] [Primary Care [facility]] - Follow up as needed
--- NOTE | 2019-10-25 19:03 | EKG REPORT ---
SEVERITY:- ABNORMAL ECG - SINUS RHYTHM FIRST DEGREE AV BLOCK PROBABLE LEFT ATRIAL ABNORMALITY BORDERLINE RIGHT AXIS DEVIATION LOW VOLTAGE IN FRONTAL LEADS : Confirmed by: Mal Machado 25-Oct-2019 19:02:30
== END 2019-10-25 14:00 | disposition home or self-care (01) ==
LOC: ER 09:17
DX: R19.7 Diarrhea, unspecified (principal); J44.9 Chronic obstructive pulmonary disease, unspecified; I11.0 Hypertensive heart disease with heart failure; I50.9 Heart failure, unspecified; Z95.2 Presence of prosthetic heart valve; Z87.891 Personal history of nicotine dependence; Z88.6 Allergy status to analgesic agent; Z88.5 Allergy status to narcotic agent
CPT/HCPCS: 36415; 71045; 80053; 84484; 85025; 93005; 93010; 99284

== ENCOUNTER 2019-10-29 09:26 | Emergency (ER) | payer OTHER, MEDICARE ==
--- NOTE | 2019-10-29 09:52 | ER Document Report ---
ED Medical Screen (RME) - General Chief Complaint: Diarrhea Stated Complaint: DIARRHEA Time Seen by Provider: 10/29/19 09:46 Primary Care Provider: GUY,ZULEMA [Primary Care Provider] - Follow up as needed Mode of Arrival: Wheelchair Information source: Patient Notes: 74-year-old male with history of COPD home oxygen cardiac disease pacemaker presents to the emergency department with complaints of severe diarrhea since October 22. Reports he has been seen here in the emergency department and his primary care provider has been taking Imodium without relief of symptoms. Denies fever vomiting. Reports he is trying to stay hydrated eating and drinking but everything he drinks goes right through him. I have greeted and performed a rapid initial assessment of this patient. A comprehensive ED assessment and evaluation of the patient, analysis of test results and completion of the medical decision making process will be conducted by additional ED providers. TRAVEL OUTSIDE OF THE [place] IN LAST 30 DAYS: No - Related Data Allergies/Adverse Reactions: codeine [Codeine] Allergy (Intermediate, Verified 08/30/19 13:49) Facial swelling Past Medical History - Past Medical History Cardiac Medical History: Reports: Hx Atrial Fibrillation, Hx Congestive Heart Failure, Hx Hypercholesterolemia, Hx Hypertension Pulmonary Medical History: Reports: Hx COPD Renal/ Medical History: Denies: Hx Peritoneal Dialysis Musculoskeltal Medical History: Reports Hx Arthritis - back pain Psychiatric Medical History: Denies: Hx Depression Past Surgical History: Reports: Hx Appendectomy, Hx Cholecystectomy, Hx Herniorrhaphy, Hx Orthopedic Surgery - right shoulder surgery, Hx Tonsillectomy - Immunizations Hx Diphtheria, Pertussis, Tetanus Vaccination: Yes - Unknown Physical Exam - Vital signs Vitals: Temp Pulse Resp BP Pulse Ox 98.5 F 72 28 H 121/53 L 95 10/29/19 09:43 10/29/19 09:43 10/29/19 09:43 10/29/19 09:43 10/29/19 09:43 Course - Vital Signs Vital signs: Temp Pulse Resp BP Pulse Ox 98.5 F 72 28 H 121/53 L 95 10/29/19 09:43 10/29/19 09:43 10/29/19 09:43 10/29/19 09:43 10/29/19 09:43 Doctor's Discharge - Discharge Referrals: [facility] [Primary Care Provider] - Follow up as needed
[2019-10-29 10:29] LABS: ABSOLUTE LYMPHOCYTES (AUTO) 0.7 10^3/uL (0.5-4.7); ABSOLUTE MONOCYTES (AUTO) 1.4 10^3/uL (0.1-1.4); ABSOLUTE NEUT (AUTO) 7.9 10^3/uL (1.7-8.2); BASOPHILS % (AUTO) 0.4 % (0-2); EOSINOPHILS % (AUTO) 0.5 % (0-6); HEMATOCRIT 32.4 % (37.9-51.0); HEMOGLOBIN 10.8 g/dL (13.5-17.0); LYMPHOCYTES % (AUTO) 7.2 % (13-45); MEAN CORPUSCULAR HEMOGLOBIN 29.9 pg (27.0-33.4); MEAN CORPUSCULAR HGB CONC 33.4 g/dL (32.0-36.0); MEAN CORPUSCULAR VOLUME 90 fl (80-97); MONOCYTES % (AUTO) 13.9 % (3-13); PLATELET COUNT 221 10^3/uL (150-450); RED BLOOD COUNT 3.62 10^6/uL (4.35-5.55); RED CELL DISTRIBUTION WIDTH 15.6 % (11.5-14.0); TOTAL CELLS COUNTED % (AUTO) 100 %; WHITE BLOOD COUNT 10.2 10^3/uL (4.0-10.5)
[2019-10-29 10:57] LABS: ALBUMIN 3.2 g/dL (3.5-5.0); ALKALINE PHOSPHATASE 97 U/L (38-126); ASPARTATE AMINO TRANSFERASE 23 U/L (17-59); BILIRUBIN,TOTAL 0.8 mg/dL (0.2-1.3); BLOOD UREA NITROGEN 14 mg/dL (7-20); CHLORIDE 91 mmol/L (98-107); GLUCOSE 111 mg/dL (75-110); POTASSIUM 3.9 mmol/L (3.6-5.0); TOTAL PROTEIN 6.3 g/dL (6.3-8.2)
[2019-10-29 11:04] LABS: ANION GAP 7 (5-19); CARBON DIOXIDE 39 mmol/L (22-30)
[2019-10-29 12:39] LABS: APPEARANCE,URINE SLIGHTLY-CLOUDY; BILIRUBIN,URINE NEGATIVE (NEGATIVE); GLUCOSE, URINE NEGATIVE (NEGATIVE); KETONES,URINE NEGATIVE (NEGATIVE); LEUKOCYTE ESTERASE,URINE NEGATIVE (NEGATIVE); NITRITE,URINE NEGATIVE (NEGATIVE); PROTEIN,URINE 100 mg/dL (NEGATIVE)
[2019-10-29 12:40] LABS: COLOR,URINE DARK YELLOW
--- NOTE | 2019-10-29 13:23 | ER Document Report ---
Entered by ISAIAS GIORDANO SCRIBE 10/29/19 1024 Acting as scribe for:BRITTON SALDANA MD ED GI/ - General Chief Complaint: Diarrhea Stated Complaint: DIARRHEA Time Seen by Provider: 10/29/19 09:46 [facility] Care Provider: [facility] [Primary Care [facility]] - Follow up as needed Mode of Arrival: Wheelchair Notes: This 74-year-old male patient presents to the emergency department today with complaints of a 6-day history of diarrhea. Patient was seen in this emergency department on 10/24 (4 days ago) for the same thing but he was unable to defecate while here so no stool specimen was tested. Patient states he has been having approximately 3-4 loose stool a day. Patient states he typically has some abdominal cramping just prior to the diarrhea. Patient denies any nausea, vomiting, or fevers. TRAVEL OUTSIDE OF THE [place] IN LAST 30 DAYS: No - Related Data Allergies/Adverse Reactions: codeine [Codeine] Allergy (Intermediate, Verified 08/30/19 13:49) Facial swelling Past Medical History - General Information source: Patient - Social History Smoking Status: Former Smoker Frequency of alcohol use: None Drug Abuse: None Family History: Reviewed & Not Pertinent, CAD, CVA Patient has suicidal ideation: No Patient has homicidal ideation: No - Past Medical History Cardiac Medical History: Reports: Hx Atrial Fibrillation, Hx Congestive Heart Failure, Hx Hypercholesterolemia, Hx Hypertension Pulmonary Medical History: Reports: Hx COPD Renal/ Medical History: Denies: Hx Peritoneal Dialysis Musculoskeletal Medical History: Reports Hx Arthritis - back pain Psychiatric Medical History: Denies: Hx Depression Past Surgical History: Reports: Hx Appendectomy, Hx Cholecystectomy, Hx Herniorrhaphy, Hx Orthopedic Surgery - right shoulder surgery, Hx Tonsillectomy - Immunizations Hx Diphtheria, Pertussis, Tetanus Vaccination: Yes - Unknown Hx Pneumococcal Vaccination: 08/31/16 Review of Systems - Review of Systems Constitutional: denies: Fever EENT: No symptoms reported Cardiovascular: No symptoms reported Respiratory: No symptoms reported Gastrointestinal: See HPI, Diarrhea. denies: Abdominal pain, Nausea, Vomiting Genitourinary: No symptoms reported Male Genitourinary: No symptoms reported Musculoskeletal: No symptoms reported Skin: No symptoms reported Hematologic/Lymphatic: No symptoms reported Neurological/Psychological: No symptoms reported Physical Exam - Vital signs Vitals: Temp Pulse Resp BP Pulse Ox 98.5 F 72 28 H 121/53 L 95 10/29/19 09:43 10/29/19 09:43 10/29/19 09:43 10/29/19 09:43 10/29/19 09:43 - Notes Notes: Physical Exam: General: Alert, appears age appropriate. HEENT: Normocephalic. Atraumatic. PERRL. Extraocular movements intact. Oropharyn x clear. Neck: Supple. Non-tender. Respiratory: No respiratory distress. Clear and equal breath sounds bilaterally. Cardiovascular: Regular rate and rhythm. Abdominal: Obese, dull to percussion. Non-tender. No distension. Normal Bowel Sounds. Back: No gross abnormalities. Extremities: Moves all four extremities. Upper extremities: Normal inspection. Normal ROM. Lower extremities: 3+ pitting edema bilaterally which the patient indicates is better than baseline. Chronic venous stasis changes bilaterally with erythema. Neurological: Normal cognition. AAOx4. Normal speech. Psychological: Normal affect. Normal Mood. Skin: Warm. Dry. Normal color. Course - Re-evaluation Re-evalutation: 10/29/19 13:59 Patient has been in the emergency room almost 5 hours and has not had a bowel movement. This is similar to his presentation last week. He will be sent home with outpatient instructions to collect a stool specimen. - Vital Signs Vital signs: Temp Pulse Resp BP Pulse Ox 99.1 F 69 18 122/52 L 100 10/29/19 13:23 10/29/19 13:23 10/29/19 13:23 10/29/19 13:23 10/29/19 13:23 - Laboratory Result Diagrams: 10/29/19 10:10 10/29/19 10:10 Laboratory results interpreted by me: 10/29/19 10/29/19 10/29/19 10:10 10:10 12:04 RBC 3.62 L Hgb 10.8 L Hct 32.4 L RDW 15.6 H Lymph % (Auto) 7.2 L Crook % (Auto) 13.9 H Sodium 136.6 L Chloride 91 L Carbon Dioxide 39 H Glucose 111 H Albumin 3.2 L Urine Protein 100 H Urine Urobilinogen 2.0 H - Diagnostic Test Radiology reviewed: Image reviewed - KUB shows some dilated loops of small bowel, no significant constipation, no obstruction Discharge - Discharge Clinical Impression: History of diarrhea Condition: Stable Disposition: HOME, SELF-CARE Additional Instructions: Diarrhea Diarrhea means frequent, watery stools. There are many causes. Any problem that keeps the intestinal tract from absorbing water from the stool can lead to diarrhea. A sudden new diarrhea problem is usually caused by a virus, food sensitivity, toxic bacteria, or drugs. In this case, we expect the problem to go away soon. Testing is done only if you seem seriously ill from the diarrhea. If you have chronic diarrhea, or diarrhea that keeps coming back, we need to find out why. Chronic diarrhea can be due to inflammation of the bowels such as Crohn's disease or ulcerative colitis, food sensitivity such as intolerance to lactose or wheat protein, irritable bowel syndrome, and other problems. If your diarrhea is a significant problem but it's not clear why you have it, we'll refer you to a specialist for further testing. During an episode of diarrhea, drink small amounts (two to six ounces) of clear liquids (soft drinks, sport drinks, herb teas, broth, etc). Take fluids frequently to prevent dehydration. It's usually not a problem to take mild anti- diarrhea medication such as Kaopectate or Pepto-Bismol. As the diarrhea eases, advance to small amounts of bland food (mashed potato, toast) for 24 hours. Call the physician if blood appears in your vomit or stool, if vomiting lasts longer than 24 hours, if the abdominal pain worsens or becomes localized to one area, if you develop high fever, or if you become lightheaded and weak. Collect a stool specimen and return it to the lab for analysis. Follow-up with your primary care provider this week for further evaluation. RETURN TO THE EMERGENCY ROOM IF ANY NEW OR WORSENING SYMPTOMS. Forms: Follow-Up Laboratory Testing Referrals: [facility] [Primary Care Provider] - Follow up as needed I personally performed the services described in the documentation, reviewed and edited the documentation which was dictated to the scribe in my presence, and it accurately records my words and actions.
[2019-10-29 13:46] VITALS: BP 122/52
--- NOTE | 2019-10-29 14:34 | RADIOLOGY REPORT (SQ) ---
EXAM DESCRIPTION: KUB/ABDOMEN (SINGLE VIEW) COMPLETED DATE/TIME: 10/29/2019 2:26 pm REASON FOR STUDY: Diarrhea complaint, look for fecal impaction COMPARISON: 11/14/2015 NUMBER OF VIEWS: One view. TECHNIQUE: Supine radiographic image of the abdomen acquired. LIMITATIONS: None. FINDINGS: BOWEL GAS PATTERN: Normal bowel gas pattern. No dilated loops. CALCIFICATIONS: No suspicious calcifications. SOFT TISSUES: No gross mass or suggestion of organomegaly. HARDWARE: There are surgical clips in the right upper quadrant consistent with prior cholecystectomy. BONES: No acute fracture. No worrisome bone lesions. OTHER: No other significant finding. IMPRESSION: NO RADIOGRAPHIC EVIDENCE FOR ACUTE ABDOMINAL DISEASE. TECHNICAL DOCUMENTATION: JOB ID: [id number] 2010 [employer]- All Rights Reserved Reading location - IP/workstation name: [email or web address]
[2019-10-29 19:30] LABS: C DIFFICILE GDH POSITIVE (NEGATIVE)
== END 2019-10-29 14:59 | disposition home or self-care (01) ==
LOC: ER 09:26
DX: R19.7 Diarrhea, unspecified (principal)
CPT/HCPCS: 36415; 74018; 80053; 81001; 85025; 87045; 87205; 87324; 87449; 87493; 89055; 99284